=== PATIENT | female | born 1990 | race Caucasian/White ===

== ENCOUNTER 2016-05-22 13:06 | Emergency (ER) | payer OTHER, MEDICAID ==
[2015-03-11 16:19] VITALS: Ht 162.6 cm; Wt 117.5 kg
[~2016-05-22] VITALS: Ht 162.6 cm; Wt 117.5 kg
[~2016-05-22 13:06] MED LIST: ALBU2.5V7 INH; ALPR2TAB7; ASPI-862; ASPI325T2 PO; AZAT50TA18 PO; AZAT50TA24; BISA5TAB10 PO; CIPR750T4 PO; CLON1TAB4 PO; COU5; CYCL-10 PO; CYCL-365; DIAZ-60 PO; DIPH50VI4 IVP; DOC-Q-LACE; FAMO20TA8; FERR-57 PO; FERR236T PO; FERR256T PO; FLUT1DIS3 INH; FURO-149; FURO20TA4; GABA-331; GABA-531 PO; HYDR-3109; HYDR-4100 PO; HYDR200T38; METO25TA6 PO; METO50TA3; NYSCR30; OMEP40CA PO; OMEP40CA33 PO; ONDA2VIA2 IV; PLA200; POTA-88; POTA20TA83 PO; PRED10TA; PRED50TA; SIMV20TA2 PO; SIMV40TA5; TRAM100T13 PO; TRAM50TA2; VITAMIN A; WARF2TAB2 PO; WARF6TAB20 PO; WARF7.5T22; WARF7.5T46 PO; ZOLP10TA6; [UNRECOGNIZED DRUG - CODE]; [UNRECOGNIZED DRUG - OTHER] PO
[2016-05-22 13:12] VITALS: BP 117/72; PULSE 95; RESP 20; TEMP 97.2; O2SAT 100
--- NOTE | 2016-05-22 13:17 | NUR ---
Pt placed to ER bed 02, report given to MIKA Pablo.
--- NOTE | 2016-05-22 13:20 | NUR ---
ER at bedside examining patient.
--- NOTE | 2016-05-22 13:22 | NUR ---
Pt AAOx4 c/o chest painx 3days w/weakness.Pt h/o mechanical valve, htn hyperlipidemia and lupus.
[2016-05-22] MEDS ORDERED: ASPIRIN 81 MG TAB.CHEW PO ONE (13:30)
[2016-05-22 13:44] LABS: BASOPHILS % (AUTO) 0.3 % (0.0-2.0); EOSINOPHILS % (AUTO) 0.1 % (0.0-4.0); HEMATOCRIT 38.2 % (36-48); HEMOGLOBIN 12.5 g/dL (12.0-16.0); LYMPHOCYTES # (AUTO) 0.5 K/uL (1.0-5.5); LYMPHOCYTES % (AUTO) 6.9 % (20.5-51.5); MEAN CORPUSCULAR HEMOGLOBIN 25 pg (27-31); MEAN CORPUSCULAR HGB CONC 33 % (32-36); MEAN CORPUSCULAR VOLUME 77 fL (79.0-98.0); MONOCYTES # (AUTO) 0.5 K/uL (0.0-1.0); MONOCYTES % (AUTO) 7.7 % (1.7-9.3); NEUTROPHILS # (AUTO) 5.8 K/uL (1.8-7.7); PLATELET COUNT (AUTO) 280 K/uL (130-430); RED BLOOD CELL COUNT(AUTO) 4.96 MIL/uL (4.2-6.2); RED CELL DISTRIBUTION WIDTH 17.6 % (9.0-15.0); WHITE BLOOD COUNT (AUTO) 6.8 K/uL (4.8-10.8)
--- NOTE | 2016-05-22 13:48 | NUR ---
Pt tolerated medication well.
[2016-05-22 13:53] LABS: INR 1.9 (0.8-1.2); PROTHROMBIN TIME 21.2 SECS (9.5-12.5)
[2016-05-22 14:12] LABS: CALCIUM 8.8 mg/dL (8.4-11.0); CREATININE 0.84 mg/dL (0.55-1.30); POTASSIUM 3.7 mmol/L (3.5-5.1)
[2016-05-22 14:17] LABS: ALBUMIN 3.9 g/dL (3.4-4.8); TOTAL BILIRUBIN 0.3 mg/dL (0.0-1.0); TOTAL PROTEIN, SERUM 7.8 g/dL (6.4-8.3)
--- NOTE | 2016-05-22 14:20 | NUR ---
Pt returned from rad tolerated well.
[2016-05-22 14:43] LABS: BILIRUBIN,URINE NEGATIVE (NEGATIVE); BLOOD, URINE NEGATIVE (NEGATIVE); COLOR,URINE YELLOW (YELLOW); GLUCOSE,URINE NEGATIVE (NEGATIVE); KETONES,URINE NEGATIVE (NEGATIVE); LEUKOCYTE ESTERASE ,URINE NEGATIVE (NEGATIVE); NITRITE, URINE NEGATIVE (NEGATIVE); PROTEIN URINE NEGATIVE (NEGATIVE); UROBILINOGEN,URINE 0.2 (0.2-1.0)
--- NOTE | 2016-05-22 14:50 | NUR ---
Results negative per MD.pt to be d/c
[2016-05-22 14:54] LABS: CLARITY/URINE SLIGHTLY HAZY (CLEAR)
[2016-05-22 14:57] LABS: BACTERIA,URINE FEW /HPF (None Seen); MUCUS,URINE 1+ /LPF (None Seen); RBC,URINE 0-3 /HPF (0-3); WBC,URINE 0-3 /HPF (0-3)
[2016-05-22] MEDS ORDERED: PROCHLORPERAZINE MALEATE 10 MG TABLET PO ONE (15:00)
[2016-05-22 15:10] VITALS: BP 118/76; PULSE 87; RESP 20; TEMP 97.6; O2SAT 100
--- NOTE | 2016-05-22 15:10 | NUR ---
Patient given written and verbal discharge instructions and verbalizes understanding. ER MD discussed with patient the results and treatment provided. Given copies of tests performed in ER. Patient in stable condition. ID arm band removed. Patient educated on pain management and to follow up with PMD. Pain Scale 2. Opportunity for questions provided and answered.
== END 2016-05-22 15:10 | disposition home or self-care (01) ==
LOC: SED 13:06
DX: R51 Headache (principal); R07.9 Chest pain, unspecified; M32.9 Systemic lupus erythematosus, unspecified; J45.909 Unspecified asthma, uncomplicated; E11.9 Type 2 diabetes mellitus without complications; K21.9 Gastro-esophageal reflux disease without esophagitis; Z88.1 Allergy status to other antibiotic agents; Z88.8 Allergy status to other drugs, medicaments and biological substances
CPT/HCPCS: 36415; 70450; 71010; 80053; 81000; 83880; 84484; 85025; 85610; 85730; 93005; 99285; Q0164

== ENCOUNTER 2017-09-28 19:31 | Emergency (ER) | payer OTHER, MEDICAID ==
[~2017-09-28] VITALS: Ht 162.6 cm; Wt 99.8 kg
[~2017-09-28 19:31] MED LIST changes: -ASPI325T2 PO; -AZAT50TA24; -BISA5TAB10 PO; -CIPR750T4 PO; -CLON1TAB4 PO; -COU5; -CYCL-10 PO; -CYCL-365; -DIAZ-60 PO; -DIPH50VI4 IVP; -FERR-57 PO; -FERR236T PO; -FERR256T PO; -FLUT1DIS3 INH; -FURO-149; -GABA-331; -HYDR-3109; -HYDR-4100 PO; -HYDR200T38; -METO50TA3; -NYSCR30; -OMEP40CA PO; -OMEP40CA33 PO; -ONDA2VIA2 IV; -POTA-88; -POTA20TA83 PO; -PRED10TA; -SIMV20TA2 PO; -TRAM100T13 PO; -TRAM50TA2; -VITAMIN A; -WARF2TAB2 PO; -WARF6TAB20 PO; -WARF7.5T46 PO; -[UNRECOGNIZED DRUG - OTHER] PO
[2017-09-28 19:35] VITALS: BP_SYST 108
--- NOTE | 2017-09-28 19:52 | NUR ---
Placed in room 7. Placed on cardiac cath technologist, blood pressure machine and pulse oximeter. To gown for exam. Side rails up. Report given to Joey BRENNAN.
--- NOTE | 2017-09-28 19:55 | NUR ---
Patient ambulatory to ED a/o x 4 with multiple complaints. Reports stabbing 10/10 pain to chest lower back and flank x 2 days. Reported Hx of aneurysm, lupus, heart failure and PE. Patient states she has had worsening shortness of breath and urinary retention even though she has been drinking water regularly. Patient took [place] for sherley x 3 hours ago with no relief prompting ED visit.
--- NOTE | 2017-09-28 20:01 | NUR ---
ED Kwaw at bedside for medical evaluation.
[2017-09-28] MEDS ORDERED: ASPIRIN 325 MG TABLET PO ONE (21:00)
[2017-09-28] MEDS ORDERED: MORPHINE 4 MG/ML INJ. SYRINGE IVP ONE ×2 (21:00→22:30)
[2017-09-28] MEDS ORDERED: NITROGLYCERIN 1 INCH (GM) OINT. TP ONE (21:00)
--- NOTE | 2017-09-28 21:05 | NUR ---
#22 gauge angiocath placed to RAC. Use of asceptic technique. Opsite placed over site. Blood return noted. Blood for lab drawn from site. Flushed with 10 cc of normal saline. No evidence of infiltration noted. Patient tolerated well.
[2017-09-28 21:21] LABS: BASOPHILS % (AUTO) 0.4 % (0.0-2.0); EOSINOPHILS % (AUTO) 0.4 % (0.0-4.0); HEMATOCRIT 33.1 % (36-48); HEMOGLOBIN 10.6 g/dL (12.0-16.0); LYMPHOCYTES # (AUTO) 1.4 K/uL (1.0-5.5); LYMPHOCYTES % (AUTO) 18.8 % (20.5-51.5); MEAN CORPUSCULAR HEMOGLOBIN 25 pg (27-31); MEAN CORPUSCULAR HGB CONC 32 % (32-36); MEAN CORPUSCULAR VOLUME 78 fL (79.0-98.0); MONOCYTES # (AUTO) 0.9 K/uL (0.0-1.0); MONOCYTES % (AUTO) 12.1 % (1.7-9.3); NEUTROPHILS % (AUTO) 68.3 % (40.0-70.0); PLATELET COUNT (AUTO) 304 K/uL (130-430); RED BLOOD CELL COUNT(AUTO) 4.26 MIL/uL (4.2-6.2); RED CELL DISTRIBUTION WIDTH 18.6 % (9.0-15.0); WHITE BLOOD COUNT (AUTO) 7.3 K/uL (4.8-10.8)
[2017-09-28 21:31] LABS: ANION GAP 5 (5-15); CALCIUM 7.6 mg/dL (8.4-11.0); CHLORIDE 106 mmol/L (98-107); CREATININE 0.85 mg/dL (0.55-1.30); GLUCOSE 81 mg/dL (70-99); POTASSIUM 3.4 mmol/L (3.5-5.1); SODIUM SERUM 141 mmol/L (136-145); UREA NITROGEN, BLOOD 16 mg/dL (8-21)
[2017-09-28 21:32] LABS: GFR AFRICAN AMERICAN 105 mL/min (>90)
[2017-09-28 21:40] LABS: ALANINE AMINOTRANSFERASE 24 U/L (12-78); ALBUMIN 3.1 g/dL (3.4-4.8); ASPARTATE AMINOTRANSFERASE 28 U/L (10-37); TOTAL BILIRUBIN 0.2 mg/dL (0.0-1.0)
[2017-09-28 22:36] LABS: BILIRUBIN,URINE NEGATIVE (NEGATIVE); BLOOD, URINE 3+ (NEGATIVE); CLARITY/URINE SL HAZY (CLEAR); COLOR,URINE YELLOW (YELLOW); GLUCOSE,URINE NEGATIVE (NEGATIVE); KETONES,URINE NEGATIVE (NEGATIVE); LEUKOCYTE ESTERASE ,URINE 2+ (NEGATIVE); NITRITE, URINE NEGATIVE (NEGATIVE); PROTEIN URINE NEGATIVE (NEGATIVE); UROBILINOGEN,URINE 0.2 (0.2-1.0)
[2017-09-28 23:02] LABS: RBC,URINE 20-50 /HPF (0-3); WBC,URINE 20-50 /HPF (0-3)
[2017-09-28 23:03] LABS: BACTERIA,URINE MANY /HPF (None Seen); MUCUS,URINE 1+ /LPF (None Seen)
--- NOTE | 2017-09-28 23:03 | NUR ---
Patient reports pain 3/10 30 minutes after administration of 4mg morphine. No adverse reactions noted. Will continue to monitor.
[2017-09-28] MEDS ORDERED: cefTRIAXone 2 GM VIAL ONE (23:30)
--- NOTE | 2017-09-28 23:31 | NUR ---
Medicated per MD orders. ABX infusing with no s/s of infiltration or adverse effects at this time.
--- NOTE | 2017-09-28 23:49 | NUR ---
ED Kwaw at bedside reassessing patient.
[2017-09-28 23:55] VITALS: BP_SYST 106
--- NOTE | 2017-09-28 23:55 | NUR ---
Patient given written and verbal discharge instructions and verbalizes understanding. ER MD discussed with patient the results and treatment provided. Patient in stable condition. ID arm band removed. IV catheter removed intact and dressing applied, no active bleeding. Rx of Prim and Ciproflaxacin given. Patient educated on pain management and to follow up with PMD. Pain Scale 3/10 tolerable for patient. Opportunity for questions provided and answered. Medication side effect fact sheet provided.
== END 2017-09-28 23:55 | disposition home or self-care (01) ==
LOC: SED 19:31
DX: N12 Tubulo-interstitial nephritis, not specified as acute or chronic (principal); R07.89 Other chest pain; J45.909 Unspecified asthma, uncomplicated; E11.9 Type 2 diabetes mellitus without complications; K21.9 Gastro-esophageal reflux disease without esophagitis; L93.0 Discoid lupus erythematosus; Z95.4 Presence of other heart-valve replacement; Z88.1 Allergy status to other antibiotic agents; Z79.82 Long term (current) use of aspirin; Z79.4 Long term (current) use of insulin
CPT/HCPCS: 36415; 71045; 80053; 81000; 82550; 84484; 85025; 85379; 87086; 93005; 96365; 96375; 96376; 99285; J0696; J2270

== ENCOUNTER 2017-09-30 00:45 | Emergency (ER) | payer OTHER, MEDICAID ==
[~2017-09-30] VITALS: Ht 162.6 cm; Wt 99.8 kg
[2017-09-30 00:59] VITALS: BP_SYST 99
--- NOTE | 2017-09-30 00:59 | NUR ---
Patient to ER bed 3 to gown for evaluation. Side rails up. Report given to MIKA ARGUETA.
--- NOTE | 2017-09-30 01:05 | NUR ---
Patient returns to ER C/O 01/10 bilateral flank pain. Patient was seen in ER 2 days ago and Dx with Pyelonephritis, DC with ABX and pain medication. Patient states "i still do not feel good" Also C/O constipation, denies N/V/D, denies urinary symptoms. AAOx4, unlabored breathing, no signs of acute distress.
--- NOTE | 2017-09-30 01:06 | NUR ---
ER MD White at bedside evaluating the patient
[2017-09-30] MEDS ORDERED: MORPHINE 4 MG/ML INJ. SYRINGE IM ONE (01:15)
--- NOTE | 2017-09-30 01:20 | NUR ---
Patient off the unit for CT via wheelchair
[2017-09-30 01:35] LABS: BILIRUBIN,URINE NEGATIVE (NEGATIVE); BLOOD, URINE NEGATIVE (NEGATIVE); CLARITY/URINE CLEAR (CLEAR); COLOR,URINE YELLOW (YELLOW); GLUCOSE,URINE NEGATIVE (NEGATIVE); KETONES,URINE NEGATIVE (NEGATIVE); LEUKOCYTE ESTERASE ,URINE 1+ (NEGATIVE); NITRITE, URINE NEGATIVE (NEGATIVE); PH,URINE 5.5 (5.0-8.0); PROTEIN URINE NEGATIVE (NEGATIVE); UROBILINOGEN,URINE 0.2 (0.2-1.0)
[2017-09-30 01:56] LABS: BARBITURATE, URINE NEGATIVE (NEG <=200); BENZODIAZEPINE, URINE POSITIVE (NEG <=150); CANNABINOID, URINE NEGATIVE (NEG <=50); COCAINE, URINE NEGATIVE (NEG <=150); METHAMPHETAMINES SCREEN,URINE NEGATIVE (NEG <=500); OPIATE, URINE POSITIVE (NEG <=100); PHENCYCLIDINE SCREEN,URINE NEGATIVE (NEG <=25); UR TRICYCLIC ANTIDEPRESSANTS NEGATIVE (NEG <=300); URINE AMPHETAMINE NEGATIVE (NEG <=500); URINE METHADONE NEGATIVE (NEG <=200); URINE OXYCODONE SCREEN NEGATIVE (NEG <=100); URINE PROPOXYPHENE SCREEN NEGATIVE (NEG <=300)
[2017-09-30] MEDS ORDERED: LACTULOSE 20 GM/30 ML UDC PO ONE (02:00)
--- NOTE | 2017-09-30 02:04 | NUR ---
ER MD White at bedside discussing tests results, plan of care, and discharge with patient.
[2017-09-30 02:06] VITALS: BP_SYST 103
--- NOTE | 2017-09-30 02:06 | NUR ---
Patient given written and verbal discharge instructions and verbalizes understanding. ER MD White discussed with patient the results and treatment provided. Patient in stable condition. ID arm band removed. Rx of lactulose given. Patient educated on pain management and to follow up with PMD. Pain Scale 0/10. Opportunity for questions provided and answered. Medication side effect fact sheet provided.
[2017-09-30 02:11] LABS: BACTERIA,URINE MODERATE /HPF (None Seen); RBC,URINE 0-3 /HPF (0-3)
[2017-09-30 02:13] LABS: HYALINE CASTS, URINE 0-10 /LPF (None Seen)
== END 2017-09-30 02:06 | disposition home or self-care (01) ==
LOC: SED 00:45
DX: K59.00 Constipation, unspecified (principal); N39.0 Urinary tract infection, site not specified; F11.20 Opioid dependence, uncomplicated; J45.909 Unspecified asthma, uncomplicated; K21.9 Gastro-esophageal reflux disease without esophagitis; M79.7 Fibromyalgia; E11.9 Type 2 diabetes mellitus without complications; Z86.79 Personal history of other diseases of the circulatory system; Z79.82 Long term (current) use of aspirin; Z79.899 Other long term (current) drug therapy; Z88.6 Allergy status to analgesic agent; Z88.1 Allergy status to other antibiotic agents
CPT/HCPCS: 80307; 81000-TC; 81025; 87086; 99285

== ENCOUNTER 2017-11-29 17:17 | Emergency (ER) | payer OTHER, MEDICAID ==
[~2017-11-29] VITALS: Ht 162.6 cm; Wt 104.3 kg
[~2017-11-29 17:17] MED LIST changes: +HYDR200T80; -PLA200; -WARF7.5T22; +WARF7.5T49
[2017-11-29 17:30] VITALS: BP_SYST 101
[2017-11-29 18:12] LABS: BILIRUBIN,URINE NEGATIVE (NEGATIVE); CLARITY/URINE SL HAZY (CLEAR); COLOR,URINE YELLOW (YELLOW); GLUCOSE,URINE NEGATIVE (NEGATIVE); KETONES,URINE NEGATIVE (NEGATIVE); LEUKOCYTE ESTERASE ,URINE NEGATIVE (NEGATIVE); NITRITE, URINE NEGATIVE (NEGATIVE); PROTEIN URINE NEGATIVE (NEGATIVE); UROBILINOGEN,URINE 0.2 (0.2-1.0)
[2017-11-29 18:18] LABS: BLOOD, URINE TRACE (NEGATIVE)
[2017-11-29 18:37] LABS: BACTERIA,URINE FEW /HPF (None Seen); MUCUS,URINE None Seen /LPF (None Seen); WBC,URINE 0-3 /HPF (0-3)
[2017-11-29] MEDS ORDERED: MORPHINE 4 MG/ML INJ. SYRINGE IVP ONE (19:00)
[2017-11-29] MEDS ORDERED: NACL 0.9% 1,000 ML IV ONE ×2 (19:00→20:30)
[2017-11-29] MEDS ORDERED: MORPHINE 4 MG/ML INJ. SYRINGE IM ONE (19:15)
[2017-11-29 19:32] LABS: BASOPHILS % (AUTO) 0.4 % (0.0-2.0); EOSINOPHILS % (AUTO) 0.5 % (0.0-4.0); HEMATOCRIT 34.9 % (36-48); HEMOGLOBIN 11.8 g/dL (12.0-16.0); LYMPHOCYTES # (AUTO) 1.5 K/uL (1.0-5.5); LYMPHOCYTES % (AUTO) 20.1 % (20.5-51.5); MEAN CORPUSCULAR HEMOGLOBIN 26 pg (27-31); MEAN CORPUSCULAR HGB CONC 34 % (32-36); MEAN CORPUSCULAR VOLUME 75 fL (79.0-98.0); MONOCYTES # (AUTO) 0.5 K/uL (0.0-1.0); MONOCYTES % (AUTO) 7.3 % (1.7-9.3); NEUTROPHILS # (AUTO) 5.5 K/uL (1.8-7.7); NEUTROPHILS % (AUTO) 71.7 % (40.0-70.0); PLATELET COUNT (AUTO) 364 K/uL (130-430); RED BLOOD CELL COUNT(AUTO) 4.64 MIL/uL (4.2-6.2); RED CELL DISTRIBUTION WIDTH 16.2 % (9.0-15.0); WHITE BLOOD COUNT (AUTO) 7.5 K/uL (4.8-10.8)
[2017-11-29 19:33] LABS: CALCIUM 8.6 mg/dL (8.4-11.0); CREATININE 0.79 mg/dL (0.55-1.30); POTASSIUM 3.6 mmol/L (3.5-5.1)
[2017-11-29 19:37] LABS: ALBUMIN 3.6 g/dL (3.4-4.8); TOTAL BILIRUBIN 0.2 mg/dL (0.0-1.0)
[2017-11-29] MEDS ORDERED: fentaNYL CITRATE/PF 100 MCG/2 ML AMP IVP ONE (20:30)
[2017-11-29] MEDS ORDERED: DIPHENHYDRAMINE INJ 50 MG/ML VIAL IVP ONE (21:00)
[2017-11-29] MEDS ORDERED: DIPHENHYDRAMINE HCL 12.5 MG/5 ML UDC PO ONE (21:30)
[2017-11-29 21:49] VITALS: BP_SYST 113
== END 2017-11-29 21:49 | disposition home or self-care (01) ==
LOC: SED 17:17
DX: S39.011A Strain of muscle, fascia and tendon of abdomen, initial encounter (principal); I71.9 Aortic aneurysm of unspecified site, without rupture; J45.909 Unspecified asthma, uncomplicated; M79.7 Fibromyalgia; E11.9 Type 2 diabetes mellitus without complications; K21.9 Gastro-esophageal reflux disease without esophagitis; E66.01 Morbid (severe) obesity due to excess calories; Z86.711 Personal history of pulmonary embolism; Z86.79 Personal history of other diseases of the circulatory system; Z88.6 Allergy status to analgesic agent; Z88.1 Allergy status to other antibiotic agents; Z88.0 Allergy status to penicillin; Z79.899 Other long term (current) drug therapy; Z68.39 Body mass index [BMI] 39.0-39.9, adult; X58.XXXA Exposure to other specified factors, initial encounter; Y93.89 Activity, other specified; Y92.89 Other specified places as the place of occurrence of the external cause; Y99.8 Other external cause status
CPT/HCPCS: 36415; 74176; 80053; 81000; 81025; 83690; 85025; 96374; 96375; 99285; J2270; J3010; J7030

== ENCOUNTER 2017-12-26 19:22 | Emergency (ER) | payer OTHER, MEDICAID ==
[~2017-12-26] VITALS: Ht 162.6 cm; Wt 108.4 kg
[2017-12-26 19:33] VITALS: BP_SYST 112
[2017-12-26] MEDS ORDERED: LORazepam 2 MG/ML VIAL (FOR ER USE) IVP ONE (21:15)
[2017-12-26] MEDS ORDERED: MORPHINE 2 MG/ML INJ. SYRINGE IVP ONE (21:15)
[2017-12-26] MEDS ORDERED: ONDANSETRON HCL 4 MG/2 ML VIAL IVP ONE (21:15)
[2017-12-26 21:42] LABS: BASOPHILS % (AUTO) 0.2 % (0.0-2.0); EOSINOPHILS % (AUTO) 0.2 % (0.0-4.0); HEMATOCRIT 33.8 % (36-48); HEMOGLOBIN 11.4 g/dL (12.0-16.0); LYMPHOCYTES % (AUTO) 11.2 % (20.5-51.5); MEAN CORPUSCULAR HEMOGLOBIN 26 pg (27-31); MEAN CORPUSCULAR HGB CONC 34 % (32-36); MEAN CORPUSCULAR VOLUME 76 fL (79.0-98.0); MONOCYTES # (AUTO) 0.7 K/uL (0.0-1.0); MONOCYTES % (AUTO) 7.7 % (1.7-9.3); NEUTROPHILS # (AUTO) 6.9 K/uL (1.8-7.7); NEUTROPHILS % (AUTO) 80.7 % (40.0-70.0); PLATELET COUNT (AUTO) 398 K/uL (130-430); RED BLOOD CELL COUNT(AUTO) 4.44 MIL/uL (4.2-6.2); RED CELL DISTRIBUTION WIDTH 17.2 % (9.0-15.0); WHITE BLOOD COUNT (AUTO) 8.6 K/uL (4.8-10.8)
[2017-12-26 21:48] LABS: CALCIUM 8.2 mg/dL (8.4-11.0); CREATININE 0.7 mg/dL (0.55-1.30); POTASSIUM 3.7 mmol/L (3.5-5.1)
[2017-12-26 21:52] LABS: INR 2.8 (0.8-1.2); PROTHROMBIN TIME 28.6 SECS (9.5-12.5)
[2017-12-26 21:53] LABS: TOTAL BILIRUBIN 0.2 mg/dL (0.0-1.0)
[2017-12-26 22:03] LABS: BILIRUBIN,URINE NEGATIVE (NEGATIVE); BLOOD, URINE 3+ (NEGATIVE); COLOR,URINE RED (YELLOW); GLUCOSE,URINE NEGATIVE (NEGATIVE); KETONES,URINE TRACE (NEGATIVE); LEUKOCYTE ESTERASE ,URINE 2+ (NEGATIVE); NITRITE, URINE POSITIVE (NEGATIVE); PROTEIN URINE 3+ (NEGATIVE)
[2017-12-26 22:16] LABS: CLARITY/URINE CLOUDY (CLEAR)
[2017-12-26 22:26] LABS: BARBITURATE, URINE NEGATIVE (NEG <=200); BENZODIAZEPINE, URINE POSITIVE (NEG <=150); CANNABINOID, URINE NEGATIVE (NEG <=50); COCAINE, URINE NEGATIVE (NEG <=150); METHAMPHETAMINES SCREEN,URINE NEGATIVE (NEG <=500); OPIATE, URINE NEGATIVE (NEG <=100); PHENCYCLIDINE SCREEN,URINE NEGATIVE (NEG <=25); UR TRICYCLIC ANTIDEPRESSANTS NEGATIVE (NEG <=300); URINE AMPHETAMINE NEGATIVE (NEG <=500); URINE METHADONE NEGATIVE (NEG <=200); URINE OXYCODONE SCREEN NEGATIVE (NEG <=100); URINE PROPOXYPHENE SCREEN NEGATIVE (NEG <=300)
[2017-12-26 22:30] LABS: BACTERIA,URINE MODERATE /HPF (None Seen); MUCUS,URINE None Seen /LPF (None Seen); RBC,URINE >100 /HPF (0-3); YEAST,URINE None Seen /HPF (None Seen)
[2017-12-26] MEDS ORDERED: HYDROcodone/ACETAMIN 10-325 MG TAB PO ONE (22:45)
[2017-12-26 22:49] LABS: ERYTHROCYTE SEDIMENTATION RATE 7 MM/HR (0-20)
[2017-12-26 23:21] VITALS: BP_SYST 110
== END 2017-12-26 23:21 | disposition home or self-care (01) ==
LOC: SED 19:22
DX: L93.0 Discoid lupus erythematosus (principal); G89.29 Other chronic pain; M79.662 Pain in left lower leg; M79.661 Pain in right lower leg; J45.909 Unspecified asthma, uncomplicated; K21.9 Gastro-esophageal reflux disease without esophagitis; E11.9 Type 2 diabetes mellitus without complications; M79.7 Fibromyalgia; Z79.4 Long term (current) use of insulin; Z79.899 Other long term (current) drug therapy; Z86.711 Personal history of pulmonary embolism; Z88.6 Allergy status to analgesic agent; Z88.1 Allergy status to other antibiotic agents; Z88.0 Allergy status to penicillin
CPT/HCPCS: 36415; 71045; 80053; 80307; 81000; 81025; 82550; 84484; 85025; 85379; 85610; 85651; 85730; 87086; 96374; 96375; 99285; J2060; J2270; J2405

== ENCOUNTER 2018-03-28 13:21 | Inpatient (IN) | payer MEDICAID ==
[~2018-03-28] VITALS: Ht 162.6 cm; Wt 127.0 kg
[~2018-03-28 13:21] MED LIST changes: -ALPR2TAB7; +ALPR2TAB7 PO; -FURO20TA4; +FURO20TA4 PO
[2018-03-28 13:31] VITALS: BP_SYST 118
[2018-03-28 14:19] LABS: BILIRUBIN,URINE NEGATIVE (NEGATIVE); BLOOD, URINE 1+ (NEGATIVE); CLARITY/URINE HAZY (CLEAR); COLOR,URINE YELLOW (YELLOW); GLUCOSE,URINE NEGATIVE (NEGATIVE); KETONES,URINE NEGATIVE (NEGATIVE); LEUKOCYTE ESTERASE ,URINE NEGATIVE (NEGATIVE); NITRITE, URINE NEGATIVE (NEGATIVE); PROTEIN URINE NEGATIVE (NEGATIVE); UROBILINOGEN,URINE 0.2 (0.2-1.0)
[2018-03-28 14:26] LABS: BACTERIA,URINE FEW /HPF (None Seen); MUCUS,URINE 2+ /LPF (None Seen); WBC,URINE 0-3 /HPF (0-3)
--- NOTE | 2018-03-28 14:28 | NUR ---
Patient is in US. [employer] will bring pt to room 5 when US is complete. Endorsed to Ashley BRENNAN.
--- NOTE | 2018-03-28 14:37 | NUR ---
Pt wheeled to bed 5 by US
--- NOTE | 2018-03-28 14:45 | NUR ---
ER at bedside examining patient.
--- NOTE | 2018-03-28 14:55 | NUR ---
patient is AOx4 with c/o vaginal bleeding. patient states she went to [facility] last week and was told she had an incomplete miscarrage. patient is here to get a second opinion and followup on vaginal bleeding. no other complaint or injury at this time.
--- NOTE | 2018-03-28 15:00 | NUR ---
patient resting in bed.
[2018-03-28 15:13] LABS: CALCIUM 8.1 mg/dL (8.4-11.0); CREATININE 1.02 mg/dL (0.55-1.30); POTASSIUM 3.6 mmol/L (3.5-5.1)
[2018-03-28 15:17] LABS: INR 2.3 (0.8-1.2); PROTHROMBIN TIME 22.3 SECS (9.5-12.5)
--- NOTE | 2018-03-28 16:06 | NUR ---
Dr. Dale at bedside for re-evaluation
[2018-03-28 16:08] LABS: BASOPHILS % (AUTO) 0.3 % (0.0-2.0); EOSINOPHILS % (AUTO) 0.4 % (0.0-4.0); HEMATOCRIT 35.5 % (36-48); HEMOGLOBIN 11.8 g/dL (12.0-16.0); LYMPHOCYTES # (AUTO) 1.3 K/uL (1.0-5.5); LYMPHOCYTES % (AUTO) 15.2 % (20.5-51.5); MEAN CORPUSCULAR HEMOGLOBIN 25 pg (27-31); MEAN CORPUSCULAR HGB CONC 33 % (32-36); MEAN CORPUSCULAR VOLUME 76 fL (79.0-98.0); MONOCYTES # (AUTO) 0.7 K/uL (0.0-1.0); NEUTROPHILS # (AUTO) 6.2 K/uL (1.8-7.7); NEUTROPHILS % (AUTO) 76.1 % (40.0-70.0); PLATELET COUNT (AUTO) 308 K/uL (130-430); RED BLOOD CELL COUNT(AUTO) 4.68 MIL/uL (4.2-6.2); WHITE BLOOD COUNT (AUTO) 8.3 K/uL (4.8-10.8)
[2018-03-28 16:18] LABS: INR 2.3 (0.8-1.2); PROTHROMBIN TIME 23.1 SECS (9.5-12.5)
--- NOTE | 2018-03-28 17:02 | NUR ---
Dr. Brady admitted the pt to med/ surg Dr. Livingston notified of consult. Will come to see the patient in the morning.
[2018-03-28] MEDS ORDERED: DIPH50CA38 PO (17:20)
[2018-03-28] MEDS ORDERED: BACL10TA PO (17:20)
[2018-03-28] MEDS ORDERED: HYDR-2489 PO (17:20)
[2018-03-28] MEDS ORDERED: DOCU-144 PO (17:20)
[2018-03-28] MEDS ORDERED: ERGO500020 PO (17:20)
--- NOTE | 2018-03-28 17:20 | NUR ---
Medication reconciliation completed with information provided by patient. Any prior medication reconciliation on file was reviewed and corrected.
[2018-03-28] MEDS ORDERED: ONDANSETRON HCL 4 MG/2 ML VIAL IVP ONE (17:30)
[2018-03-28] MEDS ORDERED: MORPHINE 4 MG/ML INJ. SYRINGE IVP ONE (17:30)
--- NOTE | 2018-03-28 17:46 | NUR ---
Jessy brooks in [facility] - 03/28/18 at 1746 by [email or web address] medication given as ordered ready for transport.
--- NOTE | 2018-03-28 17:47 | NUR ---
medication given as ordered, tolerated well. patient ready for transport.
--- NOTE | 2018-03-28 17:56 | NUR ---
Patient will be admitted to care of MD Brady . Admitted to Med/Surg unit. Will go to room 129. Belongings list completed. Summary report printed. Report will be given at bedside.
--- NOTE | 2018-03-28 18:02 | NUR ---
ADMISSION NOTE Received patient from ER via rica, received report from EPIFANIO BRENNAN. Patient admitted with diagnosis of DEMISE. Patient oriented to hospital routine, call light, toileting and safety-patient verbalized understanding.
[2018-03-28 18:08] VITALS: BP_SYST 117
[2018-03-28] MEDS: D5/0.45 NS 1,000 ML IV SCH (18:27)
--- NOTE | 2018-03-28 18:30 | NUR ---
opening notes, received pt from e.r. pt is aaox4, denies pain this time, no sob, no resp distress. pt has dry cough. iv fluids started. iv in intact on patent. safety precaution on. call light in reach. bed in low positin.
--- NOTE | 2018-03-28 19:30 | NUR ---
closing notes, pt endorsed to night pérez powell. pt stated she is starting to have pain on her back. dr guido was here and seen pt. iv fluids infusing well. calll light in reach.
[2018-03-28 20:00] VITALS: BP_SYST 91
--- NOTE | 2018-03-28 20:00 | NUR ---
Late Entry Due to Patient care: Initial PM Note Pt is fully AAO x4. No c/o pain or discomfort and no acute distress noted. Pt states vaginal bleeding is very minimal and without blood clots. IVF is infusing well in RH without any signs of infiltration. Fall and safety precautions are in place.
[2018-03-28] MEDS: FUROSEMIDE 20 MG TABLET PO SCH (21:00)
[2018-03-28] MEDS: DOCUSATE SODIUM 100 MG CAPSULE PO SCH (21:24)
[2018-03-28] MEDS: DIPHENHYDRAMINE HCL 25 MG CAPSULE PO SCH (21:25)
[2018-03-28] MEDS: LORazepam 1 MG TABLET PO SCH (21:25)
[2018-03-28] MEDS: GABAPENTIN 300 MG CAPSULE PO SCH (21:26)
[2018-03-28] MEDS: BACLOFEN 10 MG TABLET PO SCH (21:26)
[2018-03-28] MEDS: azaTHIOprine 50 MG TABLET PO SCH (21:26)
--- NOTE | 2018-03-28 21:26 | NUR ---
HS Medications and Safety HS medications given as scheduled. Lasix was held due to low BP. Pt was offered bed alarm due to Ativan and Benadryl, but pt declined. Pt stated theses are her home medications and her body is used to them. Pt stated she does not get dizzy from the medications. Pt was instructed to call before getting OOB if she feels dizzy or drowsy and pt verbalized understanding.
[2018-03-28] MEDS: HYDROXYCHLOROQUINE SULFATE 200 MG TABLET PO SCH (21:29)
[2018-03-28 23:40] VITALS: BP_SYST 104
[2018-03-29] MEDS: HYDROcodone/ACETAMIN 10-325 MG TAB PO PRN ×2 (00:57→13:25)
--- NOTE | 2018-03-29 00:57 | NUR ---
Pain Medication [place] 10/325mg 1 tablet was gievn for c/o headache with relief. Pt declined bed alarm. Fall and safety precautions are in place.
--- NOTE | 2018-03-29 01:25 | NUR ---
FRESH FROZEN PLASMA INITIATION: Consent signed per PT agreeing to administration of fresh frozen plasma (FFP). FFP has been type and crossmatched. FFP was sent from blood bank. Information on unit of FFP was checked against patient's wristband at bedside by two nurses. All information matched. Patient was informed of potential complications associated with FFP. Informed of possible transfusion reaction symptoms. Pt is aware of need to notify nurse at once of itching, shortness of breath, flushing, feeling of impending doom, or other symptoms not previously present. Vital signs taken within 5 minutes prior to initiation of transfusion. RN will remain with patient for first 15 minutes of transfusion at which time vital signs will be re-assessed.
--- NOTE | 2018-03-29 01:40 | NUR ---
Reassessment FFP transfusion is in progress and no transfusion reaction noted. VSS. IV site is without any signs of infiltration.
--- NOTE | 2018-03-29 03:00 | NUR ---
First Unit FFP Completion FFP completely transfused and no transfusion reaction noted. IV site is without any signs of infiltration. VSS.
--- NOTE | 2018-03-29 03:15 | NUR ---
Second Unit FFP Initiation Second unit FFP transfusion started. VSS. IV site in Rt hand is without any signs of infiltration. RN will remain with patient for first 15 minutes of transfusion at which time vital signs will be re-assessed.
--- NOTE | 2018-03-29 03:30 | NUR ---
Reassessment 2nd unit FFP transfusion is in progress and no transfusion reaction noted. VSS. IV site is without any signs of infiltration. Fall and safety precautions are in place.
--- NOTE | 2018-03-29 04:15 | NUR ---
Second Unit FFP Completion Second unit of FFP completely transfused and no transfusion reaction noted. IV site is without any signs of infiltration. Fall and safety precautions are in place.
[2018-03-29 05:01] LABS: BASOPHILS % (AUTO) 0.4 % (0.0-2.0); EOSINOPHILS # (AUTO) 0.1 K/uL (0.0-0.4); EOSINOPHILS % (AUTO) 0.9 % (0.0-4.0); HEMATOCRIT 32.5 % (36-48); LYMPHOCYTES # (AUTO) 1.5 K/uL (1.0-5.5); LYMPHOCYTES % (AUTO) 22.5 % (20.5-51.5); MEAN CORPUSCULAR HEMOGLOBIN 24 pg (27-31); MEAN CORPUSCULAR HGB CONC 32 % (32-36); MEAN CORPUSCULAR VOLUME 77 fL (79.0-98.0); MONOCYTES # (AUTO) 0.5 K/uL (0.0-1.0); MONOCYTES % (AUTO) 7.4 % (1.7-9.3); NEUTROPHILS # (AUTO) 4.5 K/uL (1.8-7.7); NEUTROPHILS % (AUTO) 68.8 % (40.0-70.0); PLATELET COUNT (AUTO) 257 K/uL (130-430); RED BLOOD CELL COUNT(AUTO) 4.24 MIL/uL (4.2-6.2); RED CELL DISTRIBUTION WIDTH 19.3 % (9.0-15.0); WHITE BLOOD COUNT (AUTO) 6.6 K/uL (4.8-10.8)
[2018-03-29 05:15] LABS: CALCIUM 7.2 mg/dL (8.4-11.0); CREATININE 0.68 mg/dL (0.55-1.30); POTASSIUM 3.6 mmol/L (3.5-5.1)
[2018-03-29 05:24] LABS: INR 1.8 (0.8-1.2); PROTHROMBIN TIME 18.1 SECS (9.5-12.5)
[2018-03-29 05:53] LABS: HEMOGLOBIN 10.3 g/dL (12.0-16.0)
[2018-03-29] MEDS: D5/0.45 NS 1,000 ML IV SCH (06:18)
--- NOTE | 2018-03-29 06:19 | NUR ---
CONSULTATION PAGED/CALLED Reason for Consultation: demise Person Who was Notified: Jolly Consulting Physician: Dr. Livingston([phone]) Seater Grinder Specialty: obg Ordering Physician: Dr. Brady
--- NOTE | 2018-03-29 06:23 | NUR ---
CONSULTATION PAGED/CALLED Reason for Consultation: Demise Person Who was Notified: Dr. Patel is already aware of consultation (refer to progress notes) Consulting Physician: Dr. Patel Ordering Physician: Dr. Brady
--- NOTE | 2018-03-29 06:30 | NUR ---
Closing Note Pt is awake and not in any distress at this time. IVF is infusing well in RFA. Fall and safety precautions are in place. Will endorse to day shift nurse.
--- NOTE | 2018-03-29 07:55 | NUR ---
Nutrition Update Kian Scale 18 noted. Pt admitted for demise. Diet: clear liquid BMI: 48.1 kg/m2 RD to follow per nutrition care standards.
--- NOTE | 2018-03-29 08:05 | NUR ---
OPENING NOTE PATIENT RECEIVED RESTING IN BED, PATIENT IS AWAKE, ALERT, AND ORIENTED X 4, BREATHING IS EVEN AND UNLABORED, NO PAIN OR ACUTE DISTRESS IS NOTED AT THIS TIME, IVF INFUSING WELL, PATIENT TOLERATING CLEAR LIQUID DIET WELL, EDUCATED PATIENT ON PLAN OF CARE AND CALL LIGHT SYSTEM, WILL CONTINUE TO MONITOR, SAFETY PRECAUTIONS IN PLACE, CALL LIGHT WITHIN REACH.
[2018-03-29 08:11] VITALS: BP_SYST 90
[2018-03-29] MEDS: FUROSEMIDE 20 MG TABLET PO SCH (09:00)
[2018-03-29] MEDS ORDERED: SIMVASTATIN 20 MG TABLET PO SCH (09:00)
[2018-03-29] MEDS ORDERED: PREDNISONE 10 MG TABLET PO SCH (09:00)
[2018-03-29] MEDS ORDERED: ASPIRIN 81 MG TABLET(ECOTRIN) PO SCH (09:00)
[2018-03-29] MEDS: GABAPENTIN 300 MG CAPSULE PO SCH ×2 (09:21→15:03)
[2018-03-29] MEDS: HYDROXYCHLOROQUINE SULFATE 200 MG TABLET PO SCH (09:21)
[2018-03-29] MEDS: LORazepam 1 MG TABLET PO SCH (09:21)
[2018-03-29] MEDS: DIPHENHYDRAMINE HCL 25 MG CAPSULE PO SCH (09:22)
[2018-03-29] MEDS: BACLOFEN 10 MG TABLET PO SCH (09:22)
[2018-03-29] MEDS: azaTHIOprine 50 MG TABLET PO SCH ×2 (09:22→15:03)
[2018-03-29] MEDS: DOCUSATE SODIUM 100 MG CAPSULE PO SCH (09:23)
--- NOTE | 2018-03-29 10:10 | NUR ---
NOTES PATIENT IS RESTING IN BED WITH EYES CLOSED, NO ACUTE DISTRESS OR PAIN IS NOTED AT THIS TIME, BREATHING IS EVEN AND UNLABORED, IVF INFUSING WELL WITH NO SIGNS OF INFILTRATION, WILL CONTINUE TO MONITOR, SAFETY PRECAUTIONS IN PLACE, CALL LIGHT WITHIN REACH.
[2018-03-29 10:51] VITALS: BP_SYST 88
--- NOTE | 2018-03-29 12:15 | NUR ---
NOTES PATIENT IS RESTING IN BED, NO ACUTE DISTRESS IS NOTED, PAIN IS CONTROLLED AT THIS TIME, BREATHING IS EVEN AND UNLABORED, WILL CONTINUE TO MONITOR, FAMILY IS AT BEDSIDE, WILL CONTINUE TO MONITOR, SAFETY PRECAUTIONS IN PLACE, CALL LIGHT WITHIN REACH.
--- NOTE | 2018-03-29 13:30 | NUR ---
NEW IV ON THE LEFT ARM 22G STARTED.
--- NOTE | 2018-03-29 15:16 | NUR ---
NOTES PATIENT IS RESTING IN BED, IVF INFUSING WELL WITH NO SIGNS OF INFILTRATION, PATIENT IS ALERT, AWAKE, AND ORIENTED, BREATHING IS EVEN AND UNLABORED, PATIENT STATING PAIN IS GETTING WORSE, PAGED DR. BACH.
--- NOTE | 2018-03-29 15:35 | NUR ---
SPOKE TO DR. BACH, NEW DIET ORDER RECEIVED, PAGED DR. TAO.
[2018-03-29 16:18] VITALS: BP_SYST 92
--- NOTE | 2018-03-29 17:30 | NUR ---
NOTES PATIENT RESTING IN BED AWAKE, ALERT, AND ORIENTED, BREATHING IS EVEN AND UNLABORED, PATIENT DENIES ANY ACUTE DISTRESS OR PAIN AT THIS TIME, IVF INFUSING WELL WITH NO SIGNS OF INFILTRATION, FAMILY IS AT BEDSIDE, WILL CONTINUE TO MONITOR, SAFETY PRECAUTIONS IN PLACE, CALL LIGHT WITHIN REACH.
[2018-03-29 17:59] VITALS: BP_SYST 92
--- NOTE | 2018-03-29 18:00 | NUR ---
SPOKE TO DR. ISREAL FELIX OKAYED TO DISCHARGE ALTHOUGH X RAY NOT OFFICIALLY READ YET.
--- NOTE | 2018-03-29 18:39 | NUR ---
D/C Patient Patient given medication reconciliation form and D/C instructions. Exit Care provided. Patient verbalized understanding. MD discussed with patient the results and treatment provided. Ambulatory with steady gait for discharge to home. Patient in stable condition, ID band removed. IV catheter removed, intact and dressing applied, no active bleeding. Patient educated to continue home medications. Patient educated on pain management. Patient verbalized an understanding. All belongings sent with patient.
== END 2018-03-29 18:38 | disposition home or self-care (01) | DRG 564 ==
LOC: SED 13:21 → SMU 16:58
PROVIDERS: ADMIT Family Medicine; ATTEND Family Medicine
PROC: 30233L1 Transfusion of Nonautologous Fresh Plasma into Peripheral Vein, Percutaneous Approach (ICD-10-PCS; principal; 2018-03-29)
PROC: 30233K1 Transfusion of Nonautologous Frozen Plasma into Peripheral Vein, Percutaneous Approach (ICD-10-PCS; 2018-03-29)
DX: O02.1 Missed abortion (principal); M32.9 Systemic lupus erythematosus, unspecified; I50.9 Heart failure, unspecified; I11.0 Hypertensive heart disease with heart failure; O10.011 Pre-existing essential hypertension complicating pregnancy, first trimester; O24.911 Unspecified diabetes mellitus in pregnancy, first trimester; O08.1 Delayed or excessive hemorrhage following ectopic and molar pregnancy; E11.9 Type 2 diabetes mellitus without complications; O99.89 Other specified diseases and conditions complicating pregnancy, childbirth and the puerperium; O99.341 Other mental disorders complicating pregnancy, first trimester; K21.9 Gastro-esophageal reflux disease without esophagitis; F41.9 Anxiety disorder, unspecified; O03.9 Complete or unspecified spontaneous abortion without complication; O99.211 Obesity complicating pregnancy, first trimester; E66.9 Obesity, unspecified; O75.89 Other specified complications of labor and delivery; T45.515A Adverse effect of anticoagulants, initial encounter; O99.281 Endocrine, nutritional and metabolic diseases complicating pregnancy, first trimester; E78.5 Hyperlipidemia, unspecified; Z88.2 Allergy status to sulfonamides; Z88.0 Allergy status to penicillin; Z88.8 Allergy status to other drugs, medicaments and biological substances; Z79.899 Other long term (current) drug therapy; Z86.718 Personal history of other venous thrombosis and embolism; Z79.01 Long term (current) use of anticoagulants; Z95.2 Presence of prosthetic heart valve; Y92.89 Other specified places as the place of occurrence of the external cause
CPT/HCPCS: 36415; 74018; 76801; 76817; 80048; 81000-TC; 84702-TC; 85025; 85384-TC; 85610-TC; 85730-TC; 86900; 86901; 96374; 96375; 99285; J2270; J2405; J7040; J7500; J7512; P9059; Q0163

== ENCOUNTER 2018-04-21 21:23 | Emergency (ER) | payer MEDICAID ==
[~2018-04-21] VITALS: Ht 162.6 cm; Wt 129.3 kg
[~2018-04-21 21:23] MED LIST changes: -ALBU2.5V7 INH; +BACL10TA PO; +DIPH50CA38 PO; -DOC-Q-LACE; +DOCU-144 PO; +ERGO500020 PO; -FAMO20TA8; +HYDR-2489 PO; -METO25TA6 PO; -[UNRECOGNIZED DRUG - CODE]
[2018-04-21 21:25] VITALS: BP_SYST 146
[2018-04-21] MEDS ORDERED: NACL 0.9% 1,000 ML IV ONE (22:45)
[2018-04-21 22:56] LABS: BASOPHILS % (AUTO) 0.3 % (0.0-2.0); EOSINOPHILS # (AUTO) 0.1 K/uL (0.0-0.4); EOSINOPHILS % (AUTO) 0.5 % (0.0-4.0); HEMATOCRIT 34.8 % (36-48); HEMOGLOBIN 11.6 g/dL (12.0-16.0); LYMPHOCYTES # (AUTO) 1.5 K/uL (1.0-5.5); LYMPHOCYTES % (AUTO) 15.3 % (20.5-51.5); MEAN CORPUSCULAR HEMOGLOBIN 25 pg (27-31); MEAN CORPUSCULAR HGB CONC 33 % (32-36); MEAN CORPUSCULAR VOLUME 75 fL (79.0-98.0); MONOCYTES # (AUTO) 0.9 K/uL (0.0-1.0); MONOCYTES % (AUTO) 9.1 % (1.7-9.3); NEUTROPHILS # (AUTO) 7.6 K/uL (1.8-7.7); NEUTROPHILS % (AUTO) 74.8 % (40.0-70.0); PLATELET COUNT (AUTO) 377 K/uL (130-430); RED BLOOD CELL COUNT(AUTO) 4.66 MIL/uL (4.2-6.2); RED CELL DISTRIBUTION WIDTH 18.5 % (9.0-15.0); WHITE BLOOD COUNT (AUTO) 10.1 K/uL (4.8-10.8)
[2018-04-21 23:01] LABS: BILIRUBIN,URINE NEGATIVE (NEGATIVE); BLOOD, URINE 1+ (NEGATIVE); CLARITY/URINE CLEAR (CLEAR); COLOR,URINE YELLOW (YELLOW); GLUCOSE,URINE NEGATIVE (NEGATIVE); KETONES,URINE TRACE (NEGATIVE); LEUKOCYTE ESTERASE ,URINE NEGATIVE (NEGATIVE); NITRITE, URINE NEGATIVE (NEGATIVE); PROTEIN URINE NEGATIVE (NEGATIVE); UROBILINOGEN,URINE 0.2 (0.2-1.0)
[2018-04-21 23:05] LABS: ANION GAP 8 (5-15); CALCIUM 8.1 mg/dL (8.4-11.0); CHLORIDE 105 mmol/L (98-107); CREATININE 1.26 mg/dL (0.55-1.30); GLUCOSE 76 mg/dL (70-99); POTASSIUM 3.6 mmol/L (3.5-5.1); SODIUM SERUM 140 mmol/L (136-145); UREA NITROGEN, BLOOD 17 mg/dL (8-21)
[2018-04-21 23:06] LABS: BACTERIA,URINE MODERATE /HPF (None Seen); WBC,URINE 0-3 /HPF (0-3)
[2018-04-21 23:10] LABS: BARBITURATE, URINE NEGATIVE (NEG <=200); BENZODIAZEPINE, URINE POSITIVE (NEG <=150); CANNABINOID, URINE NEGATIVE (NEG <=50); COCAINE, URINE NEGATIVE (NEG <=150); METHAMPHETAMINES SCREEN,URINE NEGATIVE (NEG <=500); OPIATE, URINE NEGATIVE (NEG <=100); PHENCYCLIDINE SCREEN,URINE NEGATIVE (NEG <=25); UR TRICYCLIC ANTIDEPRESSANTS NEGATIVE (NEG <=300); URINE AMPHETAMINE NEGATIVE (NEG <=500); URINE METHADONE NEGATIVE (NEG <=200); URINE OXYCODONE SCREEN NEGATIVE (NEG <=100); URINE PROPOXYPHENE SCREEN NEGATIVE (NEG <=300)
[2018-04-21 23:13] LABS: ALANINE AMINOTRANSFERASE 17 U/L (12-78); ALBUMIN 3.1 g/dL (3.4-4.8); ASPARTATE AMINOTRANSFERASE 26 U/L (10-37); TOTAL BILIRUBIN 0.2 mg/dL (0.0-1.0)
[2018-04-21 23:21] LABS: GFR AFRICAN AMERICAN 66 mL/min (>90)
[2018-04-22 00:30] VITALS: BP_SYST 124
[2018-04-23 19:06] LABS: CHLAMYDIA TRACHOMATIS NAA Negative (Negative); NEISSERIA GONORRHOEAE NAA Negative (Negative)
== END 2018-04-22 00:30 | disposition home or self-care (01) ==
LOC: SED 21:23
DX: N76.0 Acute vaginitis (principal); B96.89 Other specified bacterial agents as the cause of diseases classified elsewhere; F41.9 Anxiety disorder, unspecified; K21.9 Gastro-esophageal reflux disease without esophagitis; E11.9 Type 2 diabetes mellitus without complications; M79.7 Fibromyalgia; Z86.79 Personal history of other diseases of the circulatory system; Z88.0 Allergy status to penicillin; Z88.1 Allergy status to other antibiotic agents; Z88.6 Allergy status to analgesic agent; Z79.82 Long term (current) use of aspirin; Z79.899 Other long term (current) drug therapy
CPT/HCPCS: 36415; 80053; 80307; 81000; 84484; 85025; 87086; 87210; 87491; 87591; 93005; 99284; J7030

== ENCOUNTER 2018-06-21 02:22 | Emergency (ER) | payer MEDICAID ==
[~2018-06-21] VITALS: Ht 162.6 cm; Wt 140.6 kg
[~2018-06-21 02:22] MED LIST changes: -HYDR-2489 PO; +HYDR-4274 PO
[2018-06-21 02:30] VITALS: BP_SYST 116
--- NOTE | 2018-06-21 04:00 | NUR ---
Patient to ER bed 3 to gown for evaluation. Side rails up.
[2018-06-21] MEDS ORDERED: NACL 0.9% 1,000 ML IV ONE (04:12)
--- NOTE | 2018-06-21 04:25 | NUR ---
ER at bedside examining patient.
--- NOTE | 2018-06-21 04:30 | NUR ---
Note undone in EDM - 06/21/18 at 0649 by [email or web address] [facility] for bilateral flank pain for the last 1-3 days. Pt states her pain is 8/10. Reports some nausea but no vomiting. Denies fevers or chills. Denies trauma or accidents. Denies burning, urgency, frequency and denies hematuria. No other complaints/injuries noted. Will cont. to monitor.
--- NOTE | 2018-06-21 04:30 | NUR ---
Pt came to the ED for bilateral flank pain for the last 1-3 days. Pt states her pain is 8/10. Reports some nausea but no vomiting. Denies fevers or chills. Denies trauma or accidents. Denies burning, urgency, frequency and denies hematuria. No other complaints/injuries noted. Will cont. to monitor.
[2018-06-21 04:36] LABS: RED BLOOD CELL COUNT(AUTO) 5.21 MIL/uL (4.2-6.2); WHITE BLOOD COUNT (AUTO) 9.7 K/uL (4.8-10.8)
[2018-06-21 04:37] LABS: BASOPHILS % (AUTO) 0.5 % (0.0-2.0); EOSINOPHILS % (AUTO) 1.1 % (0.0-4.0); HEMOGLOBIN 12.9 g/dL (12.0-16.0); LYMPHOCYTES # (AUTO) 2.1 K/uL (1.0-5.5); LYMPHOCYTES % (AUTO) 21.5 % (20.5-51.5); MEAN CORPUSCULAR HEMOGLOBIN 25 pg (27-31); MEAN CORPUSCULAR HGB CONC 32 % (32-36); MEAN CORPUSCULAR VOLUME 77 fL (79.0-98.0); MONOCYTES % (AUTO) 8.6 % (1.7-9.3); NEUTROPHILS # (AUTO) 6.6 K/uL (1.8-7.7); NEUTROPHILS % (AUTO) 68.3 % (40.0-70.0); PLATELET COUNT (AUTO) 387 K/uL (130-430); RED CELL DISTRIBUTION WIDTH 18.6 % (9.0-15.0)
[2018-06-21 04:38] LABS: BASOPHILS # (AUTO) 0.1 K/uL (0.0-0.2); EOSINOPHILS # (AUTO) 0.1 K/uL (0.0-0.4); MONOCYTES # (AUTO) 0.8 K/uL (0.0-1.0)
[2018-06-21 04:45] LABS: CALCIUM 8.7 mg/dL (8.4-11.0); CREATININE 0.85 mg/dL (0.55-1.30); POTASSIUM 3.9 mmol/L (3.5-5.1)
[2018-06-21 04:50] LABS: PROTHROMBIN TIME 19.9 SECS (9.5-12.5)
[2018-06-21 04:51] LABS: ALBUMIN 3.5 g/dL (3.4-4.8); TOTAL BILIRUBIN 0.2 mg/dL (0.0-1.0)
[2018-06-21 05:28] LABS: BILIRUBIN,URINE NEGATIVE (NEGATIVE); BLOOD, URINE NEGATIVE (NEGATIVE); CLARITY/URINE CLEAR (CLEAR); COLOR,URINE YELLOW (YELLOW); GLUCOSE,URINE NEGATIVE (NEGATIVE); KETONES,URINE NEGATIVE (NEGATIVE); LEUKOCYTE ESTERASE ,URINE NEGATIVE (NEGATIVE); NITRITE, URINE NEGATIVE (NEGATIVE); PROTEIN URINE NEGATIVE (NEGATIVE); UROBILINOGEN,URINE 0.2 (0.2-1.0)
--- NOTE | 2018-06-21 07:32 | NUR ---
REPORT TAKEN FROM SHEAR SETTER NURSE. PATIENT LAYING IN BED RESTING EYES. PATIENT NOT COMPLAINING OF ANY DISTRESS. VITALS WERE TAKEN. PATIENT ON ROOM AIR. PATIENT ALERT AND ORIENTED X4. WILL CONTINUE TO MONITOR.
[2018-06-21] MEDS ORDERED: IOHEXOL 350 mgI/mL, 150 ML INFUS..BTL IV ONE (08:43)
--- NOTE | 2018-06-21 08:43 | NUR ---
SPOKE TO RADIOLOGY AND SAID THEY HAVE TO ORDER DOSE FOR VQ TEST. SAID IT WOULD ARRIVE AROUND 12:30. AWARE.
--- NOTE | 2018-06-21 09:09 | NUR ---
Note cecilia in EDM - 06/21/18 at 0910 by XIOMY PATIENT LAYING IN BED WITH NO COMPLAINTS OF DISTRESS. PATIENT STATES SHE WANTS TO GO HOME. SITTER AT BEDSIDE. WILL CONTINUE TO MONITOR.
[2018-06-21] MEDS ORDERED: MORPHINE 4 MG/ML INJ. SYRINGE IVP ONE (10:15)
[2018-06-21] MEDS ORDERED: ONDANSETRON HCL 4 MG/2 ML VIAL IVP ONE (10:15)
[2018-06-21 11:15] VITALS: BP_SYST 109
--- NOTE | 2018-06-21 11:15 | NUR ---
Patient given written and verbal discharge instructions and verbalizes understanding. ER MD discussed with patient the results and treatment provided. Patient in stable condition. ID arm band removed. IV catheter removed intact and dressing applied, no active bleeding. Rx of flexeril given. Patient educated on pain management and to follow up with PMD. Pain Scale 3/10 tolerable. Opportunity for questions provided and answered. Medication side effect fact sheet provided.
== END 2018-06-21 11:15 | disposition home or self-care (01) ==
LOC: SED 02:22
DX: N20.0 Calculus of kidney (principal); J45.909 Unspecified asthma, uncomplicated; E11.9 Type 2 diabetes mellitus without complications; K21.9 Gastro-esophageal reflux disease without esophagitis; M79.7 Fibromyalgia; Z86.79 Personal history of other diseases of the circulatory system; Z88.1 Allergy status to other antibiotic agents; Z88.0 Allergy status to penicillin; Z88.6 Allergy status to analgesic agent; Z79.82 Long term (current) use of aspirin; Z79.899 Other long term (current) drug therapy
CPT/HCPCS: 36415; 74176; 80053; 81003; 81025; 83690; 85025; 85379; 85610; 96374; 96375; 99284; J2270; J2405; J7030; Q9967

== ENCOUNTER 2018-11-12 09:07 | Emergency (ER) | payer OTHER, MEDICAID ==
[~2018-11-12] VITALS: Ht 162.6 cm; Wt 136.1 kg
[2018-11-12 09:12] VITALS: BP_SYST 146
[2018-11-12 09:38] VITALS: BP_SYST 146
== END 2018-11-12 09:38 | disposition home or self-care (01) ==
LOC: SED 09:07
DX: L03.311 Cellulitis of abdominal wall (principal); Z88.1 Allergy status to other antibiotic agents; Z88.0 Allergy status to penicillin; Z88.8 Allergy status to other drugs, medicaments and biological substances; Z79.82 Long term (current) use of aspirin; Z79.899 Other long term (current) drug therapy
CPT/HCPCS: 99283

== ENCOUNTER 2019-02-09 02:36 | Emergency (ER) | payer OTHER, MEDICAID ==
[~2019-02-09] VITALS: Ht 162.6 cm; Wt 158.3 kg
[2019-02-09 02:36] VITALS: BP_SYST 121
[2019-02-09 03:30] VITALS: BP_SYST 121
[2019-02-09] MEDS ORDERED: MORPHINE 4 MG/ML INJ. SYRINGE IM ONE (04:00)
[2019-02-09 05:26] LABS: HEMATOCRIT 33.8 % (36-48); HEMOGLOBIN 10.9 g/dL (12.0-16.0); MEAN CORPUSCULAR HEMOGLOBIN 24 pg (27-31); MEAN CORPUSCULAR HGB CONC 32 % (32-36); MEAN CORPUSCULAR VOLUME 76 fL (79.0-98.0); PLATELET COUNT (AUTO) 305 K/uL (130-430); RED BLOOD CELL COUNT(AUTO) 4.48 MIL/uL (4.2-6.2); RED CELL DISTRIBUTION WIDTH 20.6 % (9.0-15.0); WHITE BLOOD COUNT (AUTO) 9.5 K/uL (4.8-10.8)
[2019-02-09 05:38] LABS: CALCIUM 9.7 mg/dL (8.4-11.0); CREATININE 1.14 mg/dL (0.55-1.30); POTASSIUM 3.4 mmol/L (3.5-5.1)
[2019-02-09 05:42] LABS: INR 2.8 (0.8-1.2); PROTHROMBIN TIME 27.7 SECS (9.5-12.5)
[2019-02-09 05:49] LABS: ALBUMIN 3.7 g/dL (3.4-4.8); TOTAL BILIRUBIN 0.3 mg/dL (0.0-1.0)
[2019-02-09 06:00] VITALS: BP_SYST 121
[2019-02-09 06:16] LABS: BAND % (MANUAL) 0 % (0-6)
[2019-02-09 06:17] LABS: ATYPICAL LYMPHOCYTES % 0 % (0-0); BASOPHILS % (MANUAL) 0 % (0-2); EOSINOPHILS % (MANUAL) 1 % (0-7); LYMPHOCYTES % (MANUAL) 20 % (20-46); MONOCYTES % (MANUAL) 15 % (0-11)
== END 2019-02-09 06:00 | disposition home or self-care (01) ==
LOC: SED 02:36
DX: N93.9 Abnormal uterine and vaginal bleeding, unspecified (principal); R10.30 Lower abdominal pain, unspecified; J45.909 Unspecified asthma, uncomplicated; E11.9 Type 2 diabetes mellitus without complications; K21.9 Gastro-esophageal reflux disease without esophagitis; Z88.0 Allergy status to penicillin; Z88.1 Allergy status to other antibiotic agents; Z88.8 Allergy status to other drugs, medicaments and biological substances; Z79.82 Long term (current) use of aspirin; Z79.899 Other long term (current) drug therapy
CPT/HCPCS: 36415; 76830; 76857; 80053; 84702; 85007; 85027; 85610; 85730; 86886; 86900; 86901; 96372; 99284; J2270

== ENCOUNTER 2019-02-14 16:22 | Emergency (ER) | payer OTHER, MEDICAID ==
[~2019-02-14] VITALS: Ht 162.6 cm; Wt 158.8 kg
[2019-02-14 16:30] VITALS: BP_SYST 118
--- NOTE | 2019-02-14 16:35 | NUR ---
Patient arrived in the ED c/o vomiting, diarrhea, generalized pain, dizziness, chills x 2 days. Denied any fevers or bloody stools. Patient is alert and oriented x 4, respirations even and unlabored, VS WNL, pain severity 7/10. Denied any respiratory distress at this time. Patient is sitting up in bed, speaking in full sentences. Instructed to notify ED staff if symptoms worsen.
--- NOTE | 2019-02-14 16:41 | NUR ---
ER Dr. Moralez at bedside examining patient.
[2019-02-14] MEDS ORDERED: ONDANSETRON HCL 4 MG/2 ML VIAL IVP ONE (16:45)
--- NOTE | 2019-02-14 16:45 | NUR ---
Orthostatic BP done at bedside as ordered by MD. Lyin/66 - 109 Sittin/74 - 109 Standin/64 - 115
--- NOTE | 2019-02-14 16:50 | NUR ---
# 20 gauge angiocath placed to RAC. Use of asceptic technique. Opsite placed over site. Blood return noted. Blood for lab drawn from site. Flushed with 10 cc of normal saline. No evidence of infiltration noted. Patient tolerated well.
--- NOTE | 2019-02-14 17:23 | NUR ---
Patient taken to Radiology via wheelchair, in stable condition.
[2019-02-14 17:26] LABS: CALCIUM 8.2 mg/dL (8.4-11.0); CREATININE 0.96 mg/dL (0.55-1.30); POTASSIUM 3.6 mmol/L (3.5-5.1)
--- NOTE | 2019-02-14 17:30 | NUR ---
Patient back from Radiology, ambulating with steady gait, in stable condition.
[2019-02-14 17:31] LABS: ALBUMIN 3.4 g/dL (3.4-4.8); TOTAL BILIRUBIN 0.3 mg/dL (0.0-1.0)
[2019-02-14 18:00] LABS: BASOPHILS % (AUTO) 0.3 % (0.0-2.0); EOSINOPHILS % (AUTO) 0.2 % (0.0-4.0); HEMOGLOBIN 10.9 g/dL (12.0-16.0); LYMPHOCYTES # (AUTO) 0.4 K/uL (1.0-5.5); LYMPHOCYTES % (AUTO) 7.9 % (20.5-51.5); MEAN CORPUSCULAR HEMOGLOBIN 25 pg (27-31); MEAN CORPUSCULAR HGB CONC 33 % (32-36); MEAN CORPUSCULAR VOLUME 75 fL (79.0-98.0); MONOCYTES # (AUTO) 0.3 K/uL (0.0-1.0); MONOCYTES % (AUTO) 5.2 % (1.7-9.3); NEUTROPHILS # (AUTO) 4.4 K/uL (1.8-7.7); NEUTROPHILS % (AUTO) 86.4 % (40.0-70.0); PLATELET COUNT (AUTO) 275 K/uL (130-430); RED BLOOD CELL COUNT(AUTO) 4.42 MIL/uL (4.2-6.2); RED CELL DISTRIBUTION WIDTH 20.8 % (9.0-15.0); WHITE BLOOD COUNT (AUTO) 5.1 K/uL (4.8-10.8)
--- NOTE | 2019-02-14 18:14 | NUR ---
ER Dr. Moralez at bedside giving discharge instructions to the patient.
--- NOTE | 2019-02-14 18:20 | NUR ---
Discontinued IV as ordered by Dr. Moralez. Angiocath intact. Put pressure dressing. Patient tolerated the procedure well.
[2019-02-14 18:29] VITALS: BP_SYST 116
--- NOTE | 2019-02-14 18:31 | NUR ---
Patient given written and verbal discharge instructions and verbalizes understanding. ER MD discussed with patient the results and treatment provided. Patient in stable condition. ID arm band removed. Rx of Lomotil and Zofran given. Patient educated on pain management and to follow up with PMD. Pain Scale 0/10. Opportunity for questions provided and answered. Medication side effect fact sheet provided.
== END 2019-02-14 18:31 | disposition home or self-care (01) ==
LOC: SED 16:22
DX: K52.9 Noninfective gastroenteritis and colitis, unspecified (principal); J45.909 Unspecified asthma, uncomplicated; I09.81 Rheumatic heart failure; I26.99 Other pulmonary embolism without acute cor pulmonale; M79.7 Fibromyalgia; Z79.84 Long term (current) use of oral hypoglycemic drugs; Z88.1 Allergy status to other antibiotic agents; Z88.0 Allergy status to penicillin; Z88.8 Allergy status to other drugs, medicaments and biological substances; Z79.82 Long term (current) use of aspirin; Z79.899 Other long term (current) drug therapy
CPT/HCPCS: 36415; 74021; 80053; 81025; 83690; 85025; 96374; 99284; J2405

== ENCOUNTER 2019-03-12 18:11 | Emergency (ER) | payer OTHER, MEDICAID ==
[~2019-03-12] VITALS: Ht 162.6 cm; Wt 156.5 kg
[2019-03-12 18:43] VITALS: BP_SYST 123
--- NOTE | 2019-03-12 19:42 | NUR ---
Called in x 3, no answer
--- NOTE | 2019-03-12 19:42 | NUR ---
Patient left without being seen. No further treatment provided. ER MD aware
== END 2019-03-12 19:42 | disposition left against medical advice (07) ==
LOC: SED 18:11
DX: M54.5 Low back pain (principal); Z53.21 Procedure and treatment not carried out due to patient leaving prior to being seen by health care provider

== ENCOUNTER 2019-03-15 17:23 | Emergency (ER) | payer OTHER, MEDICAID ==
[~2019-03-15] VITALS: Ht 162.6 cm; Wt 156.5 kg
[2019-03-15 17:58] VITALS: BP_SYST 90
--- NOTE | 2019-03-15 18:02 | NUR ---
Patient triaged and placed in waiting room. VSS and patient appears in no acute distress at this time. Accompanied by BOYFRIEND, awaiting available bed, and MD notified of need for MSE.
[2019-03-15 18:10] LABS: BILIRUBIN,URINE NEGATIVE (NEGATIVE); BLOOD, URINE 3+ (NEGATIVE); GLUCOSE,URINE NEGATIVE (NEGATIVE); KETONES,URINE NEGATIVE (NEGATIVE); LEUKOCYTE ESTERASE ,URINE TRACE (NEGATIVE); NITRITE, URINE NEGATIVE (NEGATIVE); PROTEIN URINE 1+ (NEGATIVE); UROBILINOGEN,URINE 0.2 (0.2-1.0)
[2019-03-15 18:17] LABS: CLARITY/URINE SLIGHTLY CLOUDY (CLEAR); COLOR,URINE RED (YELLOW)
[2019-03-15 18:19] LABS: BACTERIA,URINE FEW /HPF (None Seen); MUCUS,URINE None Seen /LPF (None Seen); RBC,URINE >100 /HPF (0-3)
--- NOTE | 2019-03-15 18:25 | NUR ---
Patient to ER bed h2 to gown for evaluation. Side rails up.
--- NOTE | 2019-03-15 18:30 | NUR ---
BECKY White at bedside examining patient.
--- NOTE | 2019-03-15 18:40 | NUR ---
Bolus per MD orders. IVF infusing with no s/s of infiltration at this time. Will cont to monitor
--- NOTE | 2019-03-15 18:40 | NUR ---
#18 gauge angiocath placed to R AC. Use of asceptic technique. Opsite placed over site. Blood return noted. Blood for lab drawn from site. Flushed with 10 cc of normal saline. No evidence of infiltration noted. Patient tolerated well.
[2019-03-15] MEDS ORDERED: LOPERAMIDE HCL 2 MG CAPSULE PO ONE (18:45)
[2019-03-15] MEDS ORDERED: NACL 0.9% 1,000 ML IV ONE (18:45)
[2019-03-15] MEDS ORDERED: ONDANSETRON 4 MG ODT TAB PO ONE (18:45)
[2019-03-15] MEDS ORDERED: NITROFURANTOIN MONOHYD/M-CRYST 100 MG CAPSULE PO ONE (18:45)
[2019-03-15 19:11] LABS: BASOPHILS # (AUTO) 0.1 K/uL (0.0-0.2); BASOPHILS % (AUTO) 0.7 % (0.0-2.0); EOSINOPHILS % (AUTO) 0.3 % (0.0-4.0); HEMATOCRIT 36.2 % (36-48); LYMPHOCYTES # (AUTO) 1.4 K/uL (1.0-5.5); LYMPHOCYTES % (AUTO) 13.3 % (20.5-51.5); MEAN CORPUSCULAR HEMOGLOBIN 25 pg (27-31); MEAN CORPUSCULAR HGB CONC 33 % (32-36); MEAN CORPUSCULAR VOLUME 74 fL (79.0-98.0); MONOCYTES # (AUTO) 0.5 K/uL (0.0-1.0); NEUTROPHILS # (AUTO) 8.6 K/uL (1.8-7.7); NEUTROPHILS % (AUTO) 80.7 % (40.0-70.0); PLATELET COUNT (AUTO) 405 K/uL (130-430); RED BLOOD CELL COUNT(AUTO) 4.87 MIL/uL (4.2-6.2); RED CELL DISTRIBUTION WIDTH 21.8 % (9.0-15.0); WHITE BLOOD COUNT (AUTO) 10.7 K/uL (4.8-10.8)
--- NOTE | 2019-03-15 19:15 | NUR ---
care endorsed to Natty Thomson. pt is in stable condition
[2019-03-15 19:21] LABS: CALCIUM 8.8 mg/dL (8.4-11.0); CREATININE 0.91 mg/dL (0.55-1.30); POTASSIUM 4.1 mmol/L (3.5-5.1)
[2019-03-15 19:27] LABS: ALBUMIN 3.5 g/dL (3.4-4.8); TOTAL BILIRUBIN 0.2 mg/dL (0.0-1.0)
[2019-03-15 19:33] VITALS: BP_SYST 114
--- NOTE | 2019-03-15 19:33 | NUR ---
Patient given written and verbal discharge instructions and verbalizes understanding. ER MD discussed with patient the results and treatment provided. Patient in stable condition. ID arm band removed. IV catheter removed intact and dressing applied, no active bleeding. Rx of imodium, macrobid, zofran and naproxen given. Patient educated on pain management and to follow up with PMD. Pain Scale 0/10 Opportunity for questions provided and answered. Medication side effect fact sheet provided.
== END 2019-03-15 19:33 | disposition home or self-care (01) ==
LOC: SED 17:23
DX: N39.0 Urinary tract infection, site not specified (principal); R11.2 Nausea with vomiting, unspecified; R19.7 Diarrhea, unspecified; J45.909 Unspecified asthma, uncomplicated; E11.9 Type 2 diabetes mellitus without complications; K21.9 Gastro-esophageal reflux disease without esophagitis; Z88.0 Allergy status to penicillin; Z88.1 Allergy status to other antibiotic agents; Z88.8 Allergy status to other drugs, medicaments and biological substances; Z79.899 Other long term (current) drug therapy
CPT/HCPCS: 36415; 80053; 81000; 81025; 85025; 96360; 99284; J7030; Q0162

== ENCOUNTER 2019-06-04 12:18 | Emergency (ER) | payer OTHER, MEDICAID ==
[~2019-06-04] VITALS: Ht 162.6 cm; Wt 159.2 kg
[2019-06-04 12:42] VITALS: BP_SYST 115
--- NOTE | 2019-06-04 12:42 | NUR ---
Patient to ER bed 2 to gown for evaluation. Side rails up.
--- NOTE | 2019-06-04 12:50 | NUR ---
PT CAME TO ER STATING SHE FEELS SHE HAS A YEAST INFECTION. STATES IT FEELS OFF "DOWN THERE".
--- NOTE | 2019-06-04 13:15 | NUR ---
ER at bedside examining patient.
[2019-06-04 14:54] VITALS: BP_SYST 115
--- NOTE | 2019-06-04 14:54 | NUR ---
Patient given written and verbal discharge instructions and verbalizes understanding. ER MD discussed with patient the results and treatment provided. Patient in stable condition. ID arm band removed. Rx FLUCANOZOLE given. Patient educated on pain management and to follow up with PMD. Pain Scale 0. Opportunity for questions provided and answered. Medication side effect fact sheet provided.
== END 2019-06-04 14:54 | disposition home or self-care (01) ==
LOC: SED 12:18
DX: B37.3 Candidiasis of vulva and vagina (principal); J45.909 Unspecified asthma, uncomplicated; I50.9 Heart failure, unspecified; E11.9 Type 2 diabetes mellitus without complications; K21.9 Gastro-esophageal reflux disease without esophagitis; Z86.711 Personal history of pulmonary embolism; Z79.899 Other long term (current) drug therapy; Z79.82 Long term (current) use of aspirin; Z88.1 Allergy status to other antibiotic agents; Z88.0 Allergy status to penicillin
CPT/HCPCS: 81002; 81025; 99283

== ENCOUNTER 2019-09-12 12:14 | Emergency (ER) | payer OTHER, MEDICAID, SELFPAY ==
[~2019-09-12] VITALS: Ht 162.6 cm; Wt 154.2 kg
[2019-09-12 13:35] VITALS: BP_SYST 139
[2019-09-12] MEDS ORDERED: ZOLP-189 PO (13:35)
[2019-09-12] MEDS ORDERED: GABA-776 PO (13:35)
[2019-09-12] MEDS ORDERED: WARF7.5T49 PO (13:35)
[2019-09-12] MEDS ORDERED: LINA145C PO (13:35)
[2019-09-12] MEDS ORDERED: ALPR2TAB2 PO (13:41)
[2019-09-12 13:42] LABS: BILIRUBIN,URINE NEGATIVE (NEGATIVE); COLOR,URINE YELLOW (YELLOW); GLUCOSE,URINE NEGATIVE (NEGATIVE); KETONES,URINE NEGATIVE (NEGATIVE); LEUKOCYTE ESTERASE ,URINE TRACE (NEGATIVE); NITRITE, URINE NEGATIVE (NEGATIVE); PROTEIN URINE NEGATIVE (NEGATIVE); UROBILINOGEN,URINE 0.2 (0.2-1.0)
[2019-09-12 13:49] LABS: BLOOD, URINE TRACE (NEGATIVE); CLARITY/URINE SLIGHTLY HAZY (CLEAR)
[2019-09-12 13:51] LABS: BARBITURATE, URINE NEGATIVE (NEG <=200); BENZODIAZEPINE, URINE NEGATIVE (NEG <=150); CANNABINOID, URINE NEGATIVE (NEG <=50); COCAINE, URINE NEGATIVE (NEG <=150); METHAMPHETAMINES SCREEN,URINE NEGATIVE (NEG <=500); OPIATE, URINE NEGATIVE (NEG <=100); PHENCYCLIDINE SCREEN,URINE NEGATIVE (NEG <=25); UR TRICYCLIC ANTIDEPRESSANTS NEGATIVE (NEG <=300); URINE AMPHETAMINE NEGATIVE (NEG <=500); URINE METHADONE NEGATIVE (NEG <=200); URINE OXYCODONE SCREEN NEGATIVE (NEG <=100); URINE PROPOXYPHENE SCREEN NEGATIVE (NEG <=300)
[2019-09-12 13:58] LABS: BACTERIA,URINE FEW /HPF (None Seen)
[2019-09-12 14:04] LABS: BASOPHILS % (AUTO) 0.5 % (0.0-2.0); EOSINOPHILS % (AUTO) 0.3 % (0.0-4.0); HEMATOCRIT 36.7 % (36-48); HEMOGLOBIN 11.7 g/dL (12.0-16.0); MEAN CORPUSCULAR HEMOGLOBIN 26 pg (27-31); MEAN CORPUSCULAR HGB CONC 32 % (32-36); MEAN CORPUSCULAR VOLUME 81 fL (79.0-98.0); MONOCYTES # (AUTO) 0.4 K/uL (0.0-1.0); MONOCYTES % (AUTO) 6.2 % (1.7-9.3); NEUTROPHILS # (AUTO) 4.7 K/uL (1.8-7.7); PLATELET COUNT (AUTO) 297 K/uL (130-430); RED BLOOD CELL COUNT(AUTO) 4.52 MIL/uL (4.2-6.2); RED CELL DISTRIBUTION WIDTH 20.2 % (9.0-15.0); WHITE BLOOD COUNT (AUTO) 6.1 K/uL (4.8-10.8)
[2019-09-12 14:09] LABS: ANION GAP 7 (5-15); CHLORIDE 104 mmol/L (98-107); GLUCOSE 94 mg/dL (70-99); POTASSIUM 3.9 mmol/L (3.5-5.1); SODIUM SERUM 142 mmol/L (136-145); UREA NITROGEN, BLOOD 17 mg/dL (8-21)
[2019-09-12 14:10] LABS: GFR AFRICAN AMERICAN 97 mL/min (>90)
[2019-09-12 14:19] LABS: ALANINE AMINOTRANSFERASE 27 U/L (12-78); ALBUMIN 3.1 g/dL (3.4-4.8); ASPARTATE AMINOTRANSFERASE 30 U/L (10-37); TOTAL BILIRUBIN 0.2 mg/dL (0.0-1.0)
[2019-09-12] MEDS: MORPHINE 4 MG/ML INJ. SYRINGE IVP ONE (14:42)
[2019-09-12] MEDS: NACL 0.9% 1,000 ML IV ONE (15:06)
[2019-09-12 17:30] VITALS: BP_SYST 95
== END 2019-09-12 17:30 | disposition home or self-care (01) ==
LOC: SED 12:14
DX: U07.1 COVID-19 (principal); R51 Headache; R06.02 Shortness of breath; J45.909 Unspecified asthma, uncomplicated; K21.9 Gastro-esophageal reflux disease without esophagitis; E11.9 Type 2 diabetes mellitus without complications; I50.9 Heart failure, unspecified; Z79.899 Other long term (current) drug therapy; Z79.82 Long term (current) use of aspirin; Z88.0 Allergy status to penicillin; Z88.1 Allergy status to other antibiotic agents; Z88.6 Allergy status to analgesic agent
CPT/HCPCS: 36415; 71045; 80053; 80307; 81000; 83880; 84484; 85025; 86710; 87086; 93005; 96374; 99285; C9803; J2270; J7030; U0003

== ENCOUNTER 2019-11-25 18:55 | Emergency (ER) | payer OTHER, MEDICAID, SELFPAY ==
[~2019-11-25] VITALS: Ht 157.5 cm; Wt 117.9 kg
[~2019-11-25 18:55] MED LIST changes: +ALPR2TAB2 PO; -DIPH50CA38 PO; -ERGO500020 PO; +GABA-776 PO; +LINA145C PO; +WARF7.5T49 PO; +ZOLP-189 PO
--- NOTE | 2019-11-25 19:00 | NUR ---
Placed in room 06 . Placed on potline monitor, blood pressure machine and pulse oximeter. To gown for exam. Side rails up.
[2019-11-25 19:01] VITALS: BP_SYST 103
--- NOTE | 2019-11-25 19:05 | NUR ---
ER at bedside examining patient.
--- NOTE | 2019-11-25 19:08 | NUR ---
Pt presents to the hospital for blood to be drawn. As per pt station inspector sent her to the hospital to obtain blood lab, specfically PT and INR due surgery for gastric sleeve scheduled on Monday. Last blood drawn as per pt was 11/05/19. Pt takes lovenox and warfarin and has had abnormal labs in the past. Hx of PE and DVT's. Pt has also experienced intermittent CP for the last week. Denies current CP or SOB. Denies fever, chills, cough.
--- NOTE | 2019-11-25 19:40 | NUR ---
# 20 gauge angiocath placed to RAC. Use of asceptic technique. Opsite placed over site. Blood return noted. Flushed with 10 cc of normal saline. No evidence of infiltration noted. Patient tolerated well.
[2019-11-25 20:03] LABS: BILIRUBIN,URINE NEGATIVE (NEGATIVE); BLOOD, URINE 1+ (NEGATIVE); COLOR,URINE YELLOW (YELLOW); GLUCOSE,URINE NEGATIVE (NEGATIVE); KETONES,URINE NEGATIVE (NEGATIVE); LEUKOCYTE ESTERASE ,URINE TRACE (NEGATIVE); NITRITE, URINE NEGATIVE (NEGATIVE); PH,URINE 8.5 (5.0-8.0); PROTEIN URINE NEGATIVE (NEGATIVE); UROBILINOGEN,URINE 0.2 (0.2-1.0)
[2019-11-25 20:06] LABS: BASOPHILS % (AUTO) 0.4 % (0.0-2.0); EOSINOPHILS % (AUTO) 0.2 % (0.0-4.0); HEMATOCRIT 33.8 % (36-48); HEMOGLOBIN 10.7 g/dL (12.0-16.0); LYMPHOCYTES # (AUTO) 0.9 K/uL (1.0-5.5); LYMPHOCYTES % (AUTO) 14.6 % (20.5-51.5); MEAN CORPUSCULAR HEMOGLOBIN 25 pg (27-31); MEAN CORPUSCULAR HGB CONC 32 % (32-36); MEAN CORPUSCULAR VOLUME 78 fL (79.0-98.0); MONOCYTES # (AUTO) 0.4 K/uL (0.0-1.0); MONOCYTES % (AUTO) 5.7 % (1.7-9.3); NEUTROPHILS # (AUTO) 5.1 K/uL (1.8-7.7); NEUTROPHILS % (AUTO) 79.1 % (40.0-70.0); PLATELET COUNT (AUTO) 348 K/uL (130-430); RED BLOOD CELL COUNT(AUTO) 4.36 MIL/uL (4.2-6.2); RED CELL DISTRIBUTION WIDTH 19.8 % (9.0-15.0); WHITE BLOOD COUNT (AUTO) 6.4 K/uL (4.8-10.8)
[2019-11-25 20:12] LABS: CLARITY/URINE SLIGHTLY HAZY (CLEAR)
[2019-11-25 20:14] LABS: CALCIUM 8.8 mg/dL (8.4-11.0); CREATININE 1.17 mg/dL (0.55-1.30)
[2019-11-25 20:16] LABS: PROTHROMBIN TIME 10.3 SECS (9.5-12.5)
[2019-11-25 20:19] LABS: ALBUMIN 3.3 g/dL (3.4-4.8); TOTAL BILIRUBIN 0.2 mg/dL (0.0-1.0)
[2019-11-25 20:39] LABS: BACTERIA,URINE FEW /HPF (None Seen); MUCUS,URINE 1+ /LPF (None Seen)
[2019-11-25 21:01] VITALS: BP_SYST 132
--- NOTE | 2019-11-25 21:01 | NUR ---
Patient given written and verbal discharge instructions and verbalizes understanding. ER MD discussed with patient the results and treatment provided. Patient in stable condition. ID arm band removed. IV catheter removed intact and dressing applied, no active bleeding. Rx of Macrobid given. Patient educated on pain management and to follow up with PMD. Opportunity for questions provided and answered. Medication side effect fact sheet provided.
== END 2019-11-25 21:01 | disposition home or self-care (01) ==
LOC: SED 18:55
DX: N39.0 Urinary tract infection, site not specified (principal); R07.9 Chest pain, unspecified; J45.909 Unspecified asthma, uncomplicated; E11.9 Type 2 diabetes mellitus without complications; Z88.1 Allergy status to other antibiotic agents; Z88.0 Allergy status to penicillin; Z79.899 Other long term (current) drug therapy; Z79.82 Long term (current) use of aspirin
CPT/HCPCS: 36415; 80053; 81000-TC; 82550-TC; 84484; 85025; 85379; 85610-TC; 85730-TC; 87086; 93005; 99284

== ENCOUNTER 2020-10-21 11:28 | Emergency (ER) | payer OTHER, MEDICAID ==
[~2020-10-21] VITALS: Ht 162.6 cm; Wt 145.1 kg
[~2020-10-21 11:28] MED LIST changes: +SIMV-46; -SIMV40TA5
[2020-10-21 11:35] VITALS: BP_SYST 127
--- NOTE | 2020-10-21 11:45 | NUR ---
Pt to bed 5 for evaluation. Report given to MIKA Duque who will assume care.
--- NOTE | 2020-10-21 11:57 | NUR ---
ER at bedside examining patient.
--- NOTE | 2020-10-21 11:58 | NUR ---
ER at bedside examining patient.
--- NOTE | 2020-10-21 12:00 | NUR ---
PT AAO AND AMBULATORY REPORTING WORSENING ABDOMINAL PAIN X 2 WEEKS. PT REPORTS THAT HER PAIN RADIATES TO HER FLANK AREA AND SHE HAS HAD DIFFICULTY URINATING. PT REPORTS PAIN 10/10 CURRENTLY.
[2020-10-21] MEDS ORDERED: MORPHINE 4 MG INJ. 4 MG/ML VIAL IVP ONE ×2 (12:15→14:15)
[2020-10-21] MEDS ORDERED: PANTOPRAZOLE SODIUM 40 MG/VIAL (PROTONIX) IVP ONE (12:15)
[2020-10-21] MEDS ORDERED: NACL 0.9% 1,000 ML IV ONE (12:15)
[2020-10-21] MEDS ORDERED: DIPHENHYDRAMINE INJ 50 MG/ML VIAL IVP ONE (12:15)
--- NOTE | 2020-10-21 12:22 | NUR ---
LAB AT BEDSIDE FOR BLOOD DRAW
[2020-10-21 12:29] LABS: BASOPHILS % (AUTO) 0.3 % (0.0-2.0); EOSINOPHILS % (AUTO) 0.1 % (0.0-4.0); HEMATOCRIT 28.8 % (36-48); HEMOGLOBIN 9.4 g/dL (12.0-16.0); LYMPHOCYTES # (AUTO) 0.7 K/uL (1.0-5.5); LYMPHOCYTES % (AUTO) 8.4 % (20.5-51.5); MEAN CORPUSCULAR HEMOGLOBIN 23 pg (27-31); MEAN CORPUSCULAR HGB CONC 33 % (32-36); MEAN CORPUSCULAR VOLUME 71 fL (79.0-98.0); MONOCYTES # (AUTO) 0.4 K/uL (0.0-1.0); MONOCYTES % (AUTO) 4.1 % (1.7-9.3); NEUTROPHILS # (AUTO) 7.4 K/uL (1.8-7.7); NEUTROPHILS % (AUTO) 87.1 % (40.0-70.0); PLATELET COUNT (AUTO) 344 K/uL (130-430); RED BLOOD CELL COUNT(AUTO) 4.07 MIL/uL (4.2-6.2); RED CELL DISTRIBUTION WIDTH 20.1 % (9.0-15.0); WHITE BLOOD COUNT (AUTO) 8.5 K/uL (4.8-10.8)
[2020-10-21 12:30] LABS: BILIRUBIN,URINE NEGATIVE (NEGATIVE); BLOOD, URINE 2+ (NEGATIVE); COLOR,URINE YELLOW (YELLOW); GLUCOSE,URINE NEGATIVE (NEGATIVE); KETONES,URINE NEGATIVE (NEGATIVE); LEUKOCYTE ESTERASE ,URINE 1+ (NEGATIVE); NITRITE, URINE NEGATIVE (NEGATIVE); PH,URINE 7.5 (5.0-8.0); PROTEIN URINE NEGATIVE (NEGATIVE); UROBILINOGEN,URINE 0.2 (0.2-1.0)
[2020-10-21 12:33] LABS: CLARITY/URINE SLIGHTLY HAZY (CLEAR)
[2020-10-21 12:40] LABS: BACTERIA,URINE FEW /HPF (None Seen)
[2020-10-21 12:49] LABS: CREATININE 0.97 mg/dL (0.55-1.30); POTASSIUM 3.6 mmol/L (3.5-5.1)
[2020-10-21 12:54] LABS: INR 1.8 (0.8-1.2); PROTHROMBIN TIME 19.1 SECS (9.5-12.5); TOTAL BILIRUBIN 0.2 mg/dL (0.0-1.0)
[2020-10-21] MEDS ORDERED: PROCHLORPERAZINE EDISYLATE 10 MG/2 ML VIAL IVP ONE (14:15)
--- NOTE | 2020-10-21 14:20 | NUR ---
medicated for pain 10/10 per pt., pt. appears comfortable
[2020-10-21] MEDS ORDERED: IOHEXOL 350 mgI/mL, 150 ML INFUS..BTL IV ONE (14:38)
--- NOTE | 2020-10-21 15:09 | NUR ---
Pt. returned from CT
--- NOTE | 2020-10-21 15:54 | NUR ---
radiology at bedside for U/S
[2020-10-21] MEDS ORDERED: OMEP20CA15 PO (16:13)
[2020-10-21] MEDS ORDERED: HYDR-3917 PO (16:13)
[2020-10-21 16:43] VITALS: BP_SYST 107
--- NOTE | 2020-10-21 16:43 | NUR ---
Patient given written and verbal discharge instructions and verbalizes understanding. ER MD discussed with patient the results and treatment provided. Patient in stable condition. ID arm band removed. IV catheter removed intact and dressing applied, no active bleeding. Rx of [place] and Omeprazole given. Patient educated on pain management and to follow up with PMD. Pain Scale 3.Opportunity for questions provided and answered. Medication side effect fact sheet provided.
== END 2020-10-21 16:43 | disposition home or self-care (01) ==
LOC: SED 11:28
DX: R10.13 Epigastric pain (principal); R06.02 Shortness of breath; J45.909 Unspecified asthma, uncomplicated; E11.9 Type 2 diabetes mellitus without complications; K21.9 Gastro-esophageal reflux disease without esophagitis; Z88.0 Allergy status to penicillin; Z88.1 Allergy status to other antibiotic agents; Z88.8 Allergy status to other drugs, medicaments and biological substances; Z79.899 Other long term (current) drug therapy
CPT/HCPCS: 36415; 71275; 74177; 76376; 76700; 80053; 81000; 83690; 85025; 85610; 85730; 87086; 96361; 96374; 96375; 96376; 99285; C9113; J0780; J1200; J2270; J7030; Q9967

== ENCOUNTER 2021-01-04 23:05 | Emergency (ER) | payer OTHER, MEDICAID ==
[~2021-01-04] VITALS: Ht 162.6 cm; Wt 140.6 kg
[~2021-01-04 23:05] MED LIST changes: +HYDR-3917 PO; +OMEP20CA15 PO
[2021-01-04 23:40] VITALS: BP_SYST 110
[2021-01-05] MEDS ORDERED: MORPHINE 4 MG INJ. 4 MG/ML VIAL IM ONE (01:15)
[2021-01-05 01:45] LABS: HCG,QUAL RESULT NEGATIVE (NEGATIVE)
[2021-01-05 03:21] LABS: HEMATOCRIT 29.5 % (36-48); HEMOGLOBIN 9.3 g/dL (12.0-16.0); MEAN CORPUSCULAR HEMOGLOBIN 22 pg (27-31); MEAN CORPUSCULAR HGB CONC 31 % (32-36); MEAN CORPUSCULAR VOLUME 70 fL (79.0-98.0); PLATELET COUNT (AUTO) 352 K/uL (130-430); WHITE BLOOD COUNT (AUTO) 9.8 K/uL (4.8-10.8)
[2021-01-05 03:26] LABS: CREATININE 1.14 mg/dL (0.55-1.30); POTASSIUM 3.5 mmol/L (3.5-5.1)
[2021-01-05 03:31] LABS: ALBUMIN 3.1 g/dL (3.4-4.8); TOTAL BILIRUBIN 0.2 mg/dL (0.0-1.0)
[2021-01-05 03:58] LABS: INR 6.9 (0.8-1.2); PROTHROMBIN TIME 65.9 SECS (9.5-12.5)
[2021-01-05 05:18] VITALS: BP_SYST 112
[2021-01-24] MEDS ORDERED: CEPH500C2 PO (01:56)
== END 2021-01-05 05:18 | disposition home or self-care (01) ==
LOC: SED 23:05
DX: S39.012A Strain of muscle, fascia and tendon of lower back, initial encounter (principal); S20.222A Contusion of left back wall of thorax, initial encounter; S10.93XA Contusion of unspecified part of neck, initial encounter; D53.9 Nutritional anemia, unspecified; E66.01 Morbid (severe) obesity due to excess calories; E11.9 Type 2 diabetes mellitus without complications; K21.9 Gastro-esophageal reflux disease without esophagitis; J45.909 Unspecified asthma, uncomplicated; Z68.43 Body mass index [BMI] 50.0-59.9, adult; Z79.01 Long term (current) use of anticoagulants; Z88.1 Allergy status to other antibiotic agents; Z88.0 Allergy status to penicillin; Z79.899 Other long term (current) drug therapy; W01.198A Fall on same level from slipping, tripping and stumbling with subsequent striking against other object, initial encounter; Y93.89 Activity, other specified; Y92.89 Other specified places as the place of occurrence of the external cause; Y99.8 Other external cause status
CPT/HCPCS: 36415; 70450; 71045; 72125; 72128; 72131; 76376; 80053; 83051; 84703; 85014; 85048; 85049; 85610; 86870; 86886; 86900; 86901; 96372; 99285; J2270

== ENCOUNTER 2021-01-23 23:19 | Emergency (ER) | payer OTHER, MEDICAID ==
[~2021-01-23] VITALS: Ht 162.6 cm; Wt 140.6 kg
[2021-01-23 23:24] VITALS: BP_SYST 123
[2021-01-23] MEDS ORDERED: ALBUTEROL SULFATE 0.083% 2.5 MG/3 ML VIAL.NEB INH ONE ×2 (23:45→23:49)
[2021-01-23] MEDS ORDERED: IPRATROPIUM BROM 0.5 MG/2.5 ML VIAL.NEB (ATROVENT) INH ONE ×2 (23:45→23:50)
[2021-01-23 23:57] LABS: BILIRUBIN,URINE NEGATIVE (NEGATIVE); BLOOD, URINE 2+ (NEGATIVE); COLOR,URINE YELLOW (YELLOW); GLUCOSE,URINE NEGATIVE (NEGATIVE); KETONES,URINE NEGATIVE (NEGATIVE); LEUKOCYTE ESTERASE ,URINE 1+ (NEGATIVE); NITRITE, URINE NEGATIVE (NEGATIVE); PROTEIN URINE NEGATIVE (NEGATIVE); UROBILINOGEN,URINE 0.2 (0.2-1.0)
[2021-01-24 00:05] LABS: BASOPHILS # (AUTO) 0.1 K/uL (0.0-0.2); BASOPHILS % (AUTO) 0.8 % (0.0-2.0); EOSINOPHILS # (AUTO) 0.1 K/uL (0.0-0.4); HEMATOCRIT 29.4 % (36-48); HEMOGLOBIN 9.1 g/dL (12.0-16.0); LYMPHOCYTES # (AUTO) 1.5 K/uL (1.0-5.5); MEAN CORPUSCULAR HEMOGLOBIN 22 pg (27-31); MEAN CORPUSCULAR HGB CONC 31 % (32-36); MEAN CORPUSCULAR VOLUME 69 fL (79.0-98.0); MONOCYTES # (AUTO) 0.5 K/uL (0.0-1.0); NEUTROPHILS # (AUTO) 5.9 K/uL (1.8-7.7); NEUTROPHILS % (AUTO) 73.2 % (40.0-70.0); PLATELET COUNT (AUTO) 419 K/uL (130-430); RED BLOOD CELL COUNT(AUTO) 4.24 MIL/uL (4.2-6.2); RED CELL DISTRIBUTION WIDTH 20.5 % (9.0-15.0); WHITE BLOOD COUNT (AUTO) 8.1 K/uL (4.8-10.8)
[2021-01-24 00:08] LABS: CLARITY/URINE SLIGHTLY HAZY (CLEAR)
[2021-01-24 00:30] LABS: CALCIUM 8.1 mg/dL (8.4-11.0); CREATININE 1.1 mg/dL (0.55-1.30); POTASSIUM 3.3 mmol/L (3.5-5.1)
[2021-01-24 00:33] LABS: RBC,URINE 20-50 /HPF (0-3)
[2021-01-24 00:34] LABS: BACTERIA,URINE FEW /HPF (None Seen); MUCUS,URINE 1+ /LPF (None Seen)
[2021-01-24 00:41] LABS: ALBUMIN 3.6 g/dL (3.4-4.8); TOTAL BILIRUBIN 0.3 mg/dL (0.0-1.0)
[2021-01-24] MEDS ORDERED: cefTRIAXone 1 GM IVPB PREMIX 50 ML IV ONE (00:45)
[2021-01-24] MEDS ORDERED: VANCOMYCIN HCL 1,000 MG in NS 250 ML IV ONE (00:45)
[2021-01-24] MEDS ORDERED: MEROPENEM 1 GM in NS 100 ML IV ONE (00:45)
[2021-01-24] MEDS ORDERED: VANCOMYCIN HCL 1000 MG/VIAL IV ONE (01:01)
[2021-01-24] MEDS ORDERED: MORPHINE 4 MG INJ. 4 MG/ML VIAL IVP ONE (01:15)
[2021-01-24] MEDS ORDERED: NAPR-1172 PO (01:56)
[2021-01-24] MEDS ORDERED: CEPH-548 PO (01:56)
[2021-01-24 02:45] VITALS: BP_SYST 136
== END 2021-01-24 02:43 | disposition home or self-care (01) ==
LOC: SED 23:19
DX: J18.9 Pneumonia, unspecified organism (principal); N39.0 Urinary tract infection, site not specified; E11.9 Type 2 diabetes mellitus without complications; J45.909 Unspecified asthma, uncomplicated; K21.9 Gastro-esophageal reflux disease without esophagitis; Z88.1 Allergy status to other antibiotic agents; Z88.0 Allergy status to penicillin; Z88.6 Allergy status to analgesic agent; Z79.899 Other long term (current) drug therapy
CPT/HCPCS: 36415; 71045; 80053; 81000; 81025; 83880; 85025; 87040; 87086; 94640 ×2; 96365; 96367; 96375; 99284; J0696; J2270; J3370; J7613

== ENCOUNTER 2021-05-13 23:21 | Emergency (ER) | payer OTHER, MEDICAID ==
[~2021-05-13] VITALS: Ht 162.6 cm; Wt 145.1 kg
[2021-05-13 23:21] VITALS: BP_SYST 107
[~2021-05-13 23:21] MED LIST changes: +CEPH-548 PO; +NAPR-1172 PO
--- NOTE | 2021-05-13 23:45 | NUR ---
Placed in room 06 . Placed on quality assurance monitor, blood pressure machine and pulse oximeter. To gown for exam. Side rails up.
--- NOTE | 2021-05-14 00:35 | NUR ---
PT C/O SOB X 2 WEEKS. PT HAS BEEN COVID TESTED X3, ALL NEGATIVE RESULTS. PT HAS EXTENSIVE MEDICAL HX, INCLUDING HF 2 YEARS AGO. EKG DONE BY MIKA.
--- NOTE | 2021-05-14 00:40 | NUR ---
Dr. Wheeler at bedside to assess pt.
[2021-05-14 02:34] LABS: EOSINOPHILS # (AUTO) 0.1 K/uL (0.0-0.4); HEMATOCRIT 26.3 % (36-48); HEMOGLOBIN 8.2 g/dL (12.0-16.0); LYMPHOCYTES # (AUTO) 1.1 K/uL (1.0-5.5); LYMPHOCYTES % (AUTO) 27.8 % (20.5-51.5); MEAN CORPUSCULAR HEMOGLOBIN 20 pg (27-31); MEAN CORPUSCULAR HGB CONC 31 % (32-36); MEAN CORPUSCULAR VOLUME 63 fL (79.0-98.0); MONOCYTES # (AUTO) 0.4 K/uL (0.0-1.0); MONOCYTES % (AUTO) 10.8 % (1.7-9.3); NEUTROPHILS # (AUTO) 2.3 K/uL (1.8-7.7); NEUTROPHILS % (AUTO) 58.4 % (40.0-70.0); PLATELET COUNT (AUTO) 277 K/uL (130-430); RED BLOOD CELL COUNT(AUTO) 4.15 MIL/uL (4.2-6.2); RED CELL DISTRIBUTION WIDTH 19.8 % (9.0-15.0); WHITE BLOOD COUNT (AUTO) 3.9 K/uL (4.8-10.8)
[2021-05-14 02:45] LABS: CALCIUM 8.5 mg/dL (8.4-11.0); CREATININE 0.84 mg/dL (0.55-1.30); POTASSIUM 3.4 mmol/L (3.5-5.1)
[2021-05-14 02:54] LABS: ALBUMIN 3.3 g/dL (3.4-4.8); TOTAL BILIRUBIN 0.2 mg/dL (0.0-1.0)
[2021-05-14 03:05] LABS: INR 3.1 (0.8-1.2); PROTHROMBIN TIME 29.8 SECS (9.5-12.5)
[2021-05-14 03:25] VITALS: BP_SYST 98
--- NOTE | 2021-05-14 03:46 | NUR ---
PT PROVIDED WITH EDUCATION AND DISCHARGE INSTRUCTIONS. ALL QUESTIONS ANSWERED. PT VERBALIZED UNDERSTANDING. PT DISCHARGED AMUBLATORY AND IN STABLE CONDITION
== END 2021-05-14 04:28 | disposition home or self-care (01) ==
LOC: SED 23:21
DX: R06.02 Shortness of breath (principal); D64.9 Anemia, unspecified; U09.9 Post COVID-19 condition, unspecified; M79.605 Pain in left leg; L93.0 Discoid lupus erythematosus; I50.9 Heart failure, unspecified; Z95.2 Presence of prosthetic heart valve; Z79.899 Other long term (current) drug therapy; Z88.0 Allergy status to penicillin; Z88.1 Allergy status to other antibiotic agents
CPT/HCPCS: 36415; 71045; 80053; 83880; 84484; 85025; 85379; 85610-TC; 93005; 93971; 99285

== ENCOUNTER 2021-08-28 21:45 | Emergency (ER) | payer OTHER, MEDICAID ==
[~2021-08-28] VITALS: Ht 162.6 cm; Wt 136.1 kg
[2021-08-28 21:50] VITALS: BP_SYST 125
[2021-08-28 22:35] LABS: HEMOGLOBIN 9.8 g/dL (12.0-16.0)
[2021-08-28 22:42] LABS: HEMATOCRIT 31.5 % (36-48); MEAN CORPUSCULAR HEMOGLOBIN 20 pg (27-31); MEAN CORPUSCULAR HGB CONC 31 % (32-36); MEAN CORPUSCULAR VOLUME 64 fL (79.0-98.0); PLATELET COUNT (AUTO) 415 K/uL (130-430); RED CELL DISTRIBUTION WIDTH 23.5 % (9.0-15.0)
[2021-08-28 22:45] LABS: ANION GAP 7 (5-15); CALCIUM 7.8 mg/dL (8.4-11.0); CHLORIDE 103 mmol/L (98-107); CREATININE 0.89 mg/dL (0.55-1.30); GLUCOSE 116 mg/dL (70-99); POTASSIUM 3.2 mmol/L (3.5-5.1); SODIUM SERUM 137 mmol/L (136-145); UREA NITROGEN, BLOOD 15 mg/dL (8-21)
[2021-08-28 22:50] VITALS: BP_SYST 125
[2021-08-28 22:57] LABS: ALANINE AMINOTRANSFERASE 13 U/L (12-78); ALBUMIN 3.2 g/dL (3.4-4.8); ASPARTATE AMINOTRANSFERASE 22 U/L (10-37); HCG,QUANTITATIVE 0 mIU/ML (0-6); TOTAL BILIRUBIN 0.1 mg/dL (0.0-1.0)
[2021-08-28 23:02] LABS: GFR AFRICAN AMERICAN 96 mL/min (>90)
[2021-08-28 23:20] LABS: INR 2.6 (0.8-1.2); PROTHROMBIN TIME 25.3 SECS (9.5-12.5)
[2021-08-28] MEDS ORDERED: IOHEXOL 350 mgI/mL, 150 ML INFUS..BTL IV ONE (23:33)
[2021-08-28 23:53] LABS: WHITE BLOOD COUNT (AUTO) 8.4 K/uL (4.8-10.8)
== END 2021-08-29 04:46 | disposition home or self-care (01) ==
LOC: SED 21:45
DX: R07.89 Other chest pain (principal); K21.9 Gastro-esophageal reflux disease without esophagitis; E11.9 Type 2 diabetes mellitus without complications; J45.909 Unspecified asthma, uncomplicated; Z88.0 Allergy status to penicillin; Z88.1 Allergy status to other antibiotic agents; Z79.899 Other long term (current) drug therapy
CPT/HCPCS: 36415; 71045; 71275; 76376; 80053; 83880; 84484; 84702; 85025; 85379; 85610; 85730; 93005 ×2; 99285; Q9967

== ENCOUNTER 2021-09-03 20:22 | Emergency (ER) | payer OTHER, MEDICAID ==
[~2021-09-03] VITALS: Ht 162.6 cm; Wt 136.1 kg
[2021-09-03 20:43] VITALS: BP_SYST 124
--- NOTE | 2021-09-03 21:47 | NUR ---
Patient placed on monitor and resting in bed without issue, waiting for Md to bedside. Will continue to monitor and watch.
--- NOTE | 2021-09-03 22:45 | NUR ---
Lab at bedside.
--- NOTE | 2021-09-03 22:52 | NUR ---
Dr. Sharma at bedside.
[2021-09-03 23:07] LABS: BASOPHILS # (AUTO) 0.1 K/uL (0.0-0.2); BASOPHILS % (AUTO) 0.6 % (0.0-2.0); EOSINOPHILS % (AUTO) 0.4 % (0.0-4.0); HEMATOCRIT 29.1 % (36-48); HEMOGLOBIN 9.4 g/dL (12.0-16.0); LYMPHOCYTES # (AUTO) 1.6 K/uL (1.0-5.5); LYMPHOCYTES % (AUTO) 18.6 % (20.5-51.5); MEAN CORPUSCULAR HEMOGLOBIN 21 pg (27-31); MEAN CORPUSCULAR HGB CONC 32 % (32-36); MEAN CORPUSCULAR VOLUME 65 fL (79.0-98.0); MONOCYTES # (AUTO) 0.4 K/uL (0.0-1.0); MONOCYTES % (AUTO) 4.8 % (1.7-9.3); NEUTROPHILS # (AUTO) 6.4 K/uL (1.8-7.7); PLATELET COUNT (AUTO) 367 K/uL (130-430); RED BLOOD CELL COUNT(AUTO) 4.49 MIL/uL (4.2-6.2); RED CELL DISTRIBUTION WIDTH 23.4 % (9.0-15.0); WHITE BLOOD COUNT (AUTO) 8.5 K/uL (4.8-10.8)
[2021-09-03 23:20] LABS: ANION GAP 8 (5-15); CALCIUM 8.1 mg/dL (8.4-11.0); CHLORIDE 107 mmol/L (98-107); CREATININE 1.08 mg/dL (0.55-1.30); GLUCOSE 109 mg/dL (70-99); POTASSIUM 3.1 mmol/L (3.5-5.1); SODIUM SERUM 141 mmol/L (136-145); UREA NITROGEN, BLOOD 15 mg/dL (8-21)
[2021-09-03 23:34] LABS: ALANINE AMINOTRANSFERASE 14 U/L (12-78); ALBUMIN 3.2 g/dL (3.4-4.8); ASPARTATE AMINOTRANSFERASE 24 U/L (10-37); HCG,QUANTITATIVE 0 mIU/ML (0-6); TOTAL BILIRUBIN 0.2 mg/dL (0.0-1.0)
[2021-09-03 23:42] LABS: GFR AFRICAN AMERICAN 77 mL/min (>90)
[2021-09-04] MEDS ORDERED: POTASSIUM CHLORIDE 20 MEQ TAB.PRT.SR PO ONE (01:45)
[2021-09-04] MEDS ORDERED: POTASSIUM CHLORIDE 20 MEQ/PKT PACKET PO ONE (02:00)
[2021-09-04 02:53] LABS: NEUTROPHILS % (AUTO) 75.6 % (40.0-70.0)
--- NOTE | 2021-09-04 03:15 | NUR ---
Patient given written and verbal discharge instructions and verbalizes understanding. ER MD discussed with patient the results and treatment provided. Patient in stable condition. ID arm band removed. IV catheter removed intact and dressing applied, no active bleeding. Rx of n/a given. Patient educated on pain management and to follow up with PMD. Pain Scale . Opportunity for questions provided and answered. Medication side effect fact sheet provided.
== END 2021-09-04 03:15 | disposition home or self-care (01) ==
LOC: SED 20:22
DX: R07.89 Other chest pain (principal); E87.6 Hypokalemia; E11.9 Type 2 diabetes mellitus without complications; R03.0 Elevated blood-pressure reading, without diagnosis of hypertension; J45.909 Unspecified asthma, uncomplicated; K21.9 Gastro-esophageal reflux disease without esophagitis; Z88.0 Allergy status to penicillin; Z88.1 Allergy status to other antibiotic agents; Z88.6 Allergy status to analgesic agent; Z79.899 Other long term (current) drug therapy
CPT/HCPCS: 36415; 71045; 80053; 84484; 84702; 85025; 85379; 93005; 99285

== ENCOUNTER 2022-03-20 01:21 | Emergency (ER) | payer OTHER, MEDICAID ==
[~2022-03-20] VITALS: Ht 162.6 cm; Wt 136.1 kg
[2022-03-20 01:21] VITALS: BP_SYST 95
[2022-03-20] MEDS ORDERED: FAMOTIDINE PF 20 MG/2 ML VIAL IVP ONE (02:30)
[2022-03-20] MEDS ORDERED: METOCLOPRAMIDE HCL 10 MG/2 ML VIAL IVP ONE (02:30)
[2022-03-20] MEDS ORDERED: LIDOCAINE VISCOUS 2%, 15 ML UDC MM ONE (04:45)
[2022-03-20] MEDS ORDERED: MAG-AL HYDROX/SIMETH 30 ML UDC PO ONE (04:45)
[2022-03-20 04:57] LABS: BASOPHILS % (AUTO) 0.5 % (0.0-2.0); EOSINOPHILS % (AUTO) 0.4 % (0.0-4.0); HEMATOCRIT 35.9 % (36-48); HEMOGLOBIN 11.2 g/dL (12.0-16.0); LYMPHOCYTES # (AUTO) 1.7 K/uL (1.0-5.5); LYMPHOCYTES % (AUTO) 17.3 % (20.5-51.5); MEAN CORPUSCULAR HEMOGLOBIN 22 pg (27-31); MEAN CORPUSCULAR HGB CONC 31 % (32-36); MEAN CORPUSCULAR VOLUME 70 fL (79.0-98.0); MONOCYTES # (AUTO) 0.7 K/uL (0.0-1.0); MONOCYTES % (AUTO) 6.8 % (1.7-9.3); NEUTROPHILS # (AUTO) 7.3 K/uL (1.8-7.7); PLATELET COUNT (AUTO) 291 K/uL (130-430); RED BLOOD CELL COUNT(AUTO) 5.13 MIL/uL (4.2-6.2); RED CELL DISTRIBUTION WIDTH 22.7 % (9.0-15.0); WHITE BLOOD COUNT (AUTO) 9.8 K/uL (4.8-10.8)
[2022-03-20 05:18] LABS: INR 1.8 (0.8-1.2); PROTHROMBIN TIME 18.4 SECS (9.5-12.5)
[2022-03-20 05:21] LABS: ANION GAP 9 (5-15); CALCIUM 8.7 mg/dL (8.4-11.0); CHLORIDE 101 mmol/L (98-107); CREATININE 1.23 mg/dL (0.55-1.30); GLUCOSE 76 mg/dL (70-99); UREA NITROGEN, BLOOD 14 mg/dL (8-21)
[2022-03-20 05:24] LABS: GFR AFRICAN AMERICAN 66 mL/min (>90)
[2022-03-20 05:28] LABS: ALANINE AMINOTRANSFERASE 34 U/L (12-78); ASPARTATE AMINOTRANSFERASE 36 U/L (10-37); TOTAL BILIRUBIN 0.4 mg/dL (0.0-1.0)
[2022-03-20] MEDS ORDERED: SUCR1ORA4 PO (06:03)
[2022-03-20] MEDS ORDERED: HYOS0.1275 PO (06:08)
[2022-03-20] MEDS ORDERED: METO-290 PO (06:08)
[2022-03-20] MEDS ORDERED: ENOXAPARIN SODIUM 120 MG/0.8 ML SYRINGE SUBCUT ONE (06:15)
[2022-03-20] MEDS ORDERED: WARF10TA43 PO (06:19)
[2022-03-20 08:20] LABS: BILIRUBIN,URINE NEGATIVE (NEGATIVE); BLOOD, URINE 1+ (NEGATIVE); COLOR,URINE YELLOW (YELLOW); GLUCOSE,URINE NEGATIVE (NEGATIVE); KETONES,URINE TRACE (NEGATIVE); LEUKOCYTE ESTERASE ,URINE 3+ (NEGATIVE); NITRITE, URINE NEGATIVE (NEGATIVE); PROTEIN URINE NEGATIVE (NEGATIVE); UROBILINOGEN,URINE 0.2 (0.2-1.0)
[2022-03-20 08:47] LABS: CLARITY/URINE HAZY (CLEAR)
[2022-03-20 08:55] LABS: BACTERIA,URINE MANY /HPF (None Seen); MUCUS,URINE 1+ /LPF (None Seen)
== END 2022-03-20 06:31 | disposition home or self-care (01) ==
LOC: SED 01:21
DX: K29.70 Gastritis, unspecified, without bleeding (principal); E11.9 Type 2 diabetes mellitus without complications; J45.909 Unspecified asthma, uncomplicated; K21.9 Gastro-esophageal reflux disease without esophagitis; Z88.1 Allergy status to other antibiotic agents; Z88.0 Allergy status to penicillin; Z79.899 Other long term (current) drug therapy
CPT/HCPCS: 99285; 96374; 71045; 96375; 80053; 81000; 83880; 85025; 85610; 87086; 84484; 36415; 93005; 74021; J2001

== ENCOUNTER 2022-09-25 22:02 | Emergency (ER) | payer OTHER, MEDICAID ==
[~2022-09-25] VITALS: Ht 162.6 cm; Wt 136.1 kg
[~2022-09-25 22:02] MED LIST changes: +HYOS0.1275 PO; +METO-290 PO; +SUCR1ORA4 PO; +WARF10TA43 PO
[2022-09-25 22:20] VITALS: BP_SYST 108
--- NOTE | 2022-09-25 22:24 | NUR ---
Patient triaged and placed in waiting room. VSS and patient appears in no acute distress at this time. Accompanied by SELF, awaiting available bed, and MD notified of need for MSE.
--- NOTE | 2022-09-25 22:30 | NUR ---
Pt from home with no medical complaint. Pt denies pain, and discomfort at this time, NAD. Pt requesting INR because she took warfrain when told to stop by her dentist prior to procedure. WOLF. REQUESTED FOR MSE.
[2022-09-26 00:15] LABS: INR 2.5 (0.8-1.2); PROTHROMBIN TIME 25.3 SECS (9.5-12.5)
--- NOTE | 2022-09-26 00:29 | NUR ---
Patient to ER bed CH1 to gown for evaluation. Side rails up.
--- NOTE | 2022-09-26 00:36 | NUR ---
Dr. Rojas with patient in [facility] for MSE.
[2022-09-26] MEDS ORDERED: MORPHINE 4 MG INJ. 4 MG/ML VIAL IM ONE (00:45)
[2022-09-26 01:00] VITALS: BP_SYST 108
--- NOTE | 2022-09-26 01:00 | NUR ---
Patient given written and verbal discharge instructions and verbalizes understanding. ER DR. HAYES discussed with patient the results and treatment provided. Patient in stable condition. ID arm band removed. Patient educated on pain management and to follow up with PMD. Pain Scale 0. Opportunity for questions provided and answered. Medication side effect fact sheet provided.
== END 2022-09-26 01:00 | disposition home or self-care (01) ==
LOC: SED 22:02
DX: K08.89 Other specified disorders of teeth and supporting structures (principal); J45.909 Unspecified asthma, uncomplicated; E11.9 Type 2 diabetes mellitus without complications; K21.9 Gastro-esophageal reflux disease without esophagitis; Z88.0 Allergy status to penicillin; Z88.1 Allergy status to other antibiotic agents; Z88.6 Allergy status to analgesic agent; Z79.899 Other long term (current) drug therapy
CPT/HCPCS: 99283; 85610; 85730; 36415; 96372; J2270

== ENCOUNTER 2022-10-25 02:08 | Inpatient (IN) | payer OTHER, MEDICAID ==
[~2022-10-25] VITALS: Ht 162.6 cm; Wt 142.9 kg
[2022-10-25] VITALS (7 sets, daily range): BP systolic 101–129; PULSE 82–88; RESP 18–22; TEMP 96.7–98.3; O2SAT 96–100
[~2022-10-25 02:08] MED LIST changes: -WARF7.5T49
[2022-10-25] MEDS ORDERED: MORPHINE 4 MG INJ. 4 MG/ML VIAL IM ONE (02:45)
[2022-10-25] MEDS ORDERED: MORPHINE 4 MG INJ. 4 MG/ML VIAL IVP ONE ×2 (02:45→06:30)
[2022-10-25 03:36] LABS: ALANINE AMINOTRANSFERASE 11 U/L (12-78); ALBUMIN 3.5 g/dL (3.4-4.8); ANION GAP 8 (5-15); ASPARTATE AMINOTRANSFERASE 21 U/L (10-37); CALCIUM 8.6 mg/dL (8.4-11.0); CARBON DIOXIDE 27 mmol/L (23-29); CHLORIDE 104 mmol/L (98-107); CREATININE 1.03 mg/dL (0.55-1.30); GFR AFRICAN AMERICAN 81 mL/min (>90); GLUCOSE 78 mg/dL (74-106); SODIUM SERUM 139 mmol/L (136-145); TOTAL BILIRUBIN 0.3 mg/dL (0.0-1.0); TOTAL PROTEIN, SERUM 6.9 g/dL (6.4-8.3); UREA NITROGEN, BLOOD 13 mg/dL (8-21)
[2022-10-25 03:41] LABS: GFR NON AFRICAN-AMERICAN 67 mL/min (>90)
[2022-10-25 03:42] LABS: POTASSIUM 2.6 mmol/L (3.5-5.1)
[2022-10-25 03:47] LABS: PROTHROMBIN TIME 45.8 SECS (9.5-12.5)
[2022-10-25 03:48] LABS: INR 4.7 (0.8-1.2)
[2022-10-25 03:58] LABS: BASOPHILS % (AUTO) 0.4 % (0.0-2.0); EOSINOPHILS % (AUTO) 0.4 % (0.0-4.0); HEMATOCRIT 30.4 % (36-48); HEMOGLOBIN 9.7 g/dL (12.0-16.0); LYMPHOCYTES # (AUTO) 1.7 K/uL (1.0-5.5); LYMPHOCYTES % (AUTO) 19.9 % (20.5-51.5); MEAN CORPUSCULAR HEMOGLOBIN 23 pg (27-31); MEAN CORPUSCULAR HGB CONC 32 % (32-36); MEAN CORPUSCULAR VOLUME 70 fL (79.0-98.0); MONOCYTES # (AUTO) 0.7 K/uL (0.0-1.0); MONOCYTES % (AUTO) 8.4 % (1.7-9.3); NEUTROPHILS % (AUTO) 70.9 % (40.0-70.0); PLATELET COUNT (AUTO) 379 K/uL (130-430); RED BLOOD CELL COUNT(AUTO) 4.33 MIL/uL (4.2-6.2); RED CELL DISTRIBUTION WIDTH 19.6 % (9.0-15.0); WHITE BLOOD COUNT (AUTO) 8.4 K/uL (4.8-10.8)
[2022-10-25] MEDS ORDERED: POTASSIUM CHLORIDE 20 MEQ TAB.PRT.SR PO ONE (04:00)
[2022-10-25] MEDS ORDERED: PANT40TA45 PO (06:02)
[2022-10-25] MEDS ORDERED: FURO40TA5 PO (06:02)
[2022-10-25] MEDS ORDERED: METO10TA3 PO (06:02)
[2022-10-25] MEDS ORDERED: ONDA4TAB55 PO (06:02)
[2022-10-25] MEDS ORDERED: ZOLP10TA2 PO (06:02)
[2022-10-25] MEDS ORDERED: HYDR200T38 PO (06:02)
[2022-10-25] MEDS ORDERED: HYDR-3927 PO (06:02)
[2022-10-25] MEDS ORDERED: GABA-331 PO (06:02)
[2022-10-25] MEDS ORDERED: DOCU-156 PO (06:02)
[2022-10-25] MEDS ORDERED: PRED10TA PO (06:18)
[2022-10-25] MEDS ORDERED: METO-442 PO (06:18)
[2022-10-25] MEDS ORDERED: CYCL10TA24 PO (06:20)
[2022-10-25] MEDS ORDERED: NALOXONE HCL 0.4 MG/ML AMP (NARCAN) IVP PRN ×2 (11:45→14:15)
[2022-10-25] MEDS: HYDROcodone/ACETAMIN 10-325 MG TAB PO PRN (12:22)
[2022-10-25] MEDS ORDERED: HYOSCYAMINE SULFATE 0.125 MG TABLET PO PRN (14:15)
[2022-10-25] MEDS ORDERED: HYDROcodone/ACETAMIN 10-325 MG TAB PO PRN (14:15)
[2022-10-25] MEDS ORDERED: NON-FORMULARY MEDICATION (Alprazolam 2 MG) PO SCH (15:00)
[2022-10-25] MEDS ORDERED: METOPROLOL TARTRATE 50 MG TABLET PO ONE (16:15)
[2022-10-25] MEDS ORDERED: ZOLPIDEM TARTRATE 5 MG TABLET PO PRN (21:00)
[2022-10-25] MEDS: SIMVASTATIN 40 MG TABLET PO SCH (21:13)
[2022-10-25] MEDS: ALPRAZolam 0.25 MG TABLET PO SCH (21:13)
[2022-10-25] MEDS: HYDROXYCHLOROQUINE SULFATE 200 MG TABLET PO SCH (21:13)
[2022-10-25] MEDS: BACLOFEN 10 MG TABLET PO SCH (21:13)
[2022-10-25] MEDS: FUROSEMIDE 40 MG TABLET PO SCH (21:13)
[2022-10-25] MEDS: METOCLOPRAMIDE HCL 10 MG TABLET PO SCH (21:13)
[2022-10-25] MEDS: DOCUSATE SODIUM 100 MG CAPSULE PO SCH (21:13)
[2022-10-25] MEDS: azaTHIOprine 50 MG TABLET PO SCH (21:14)
[2022-10-26] VITALS (7 sets, daily range): BP systolic 104–157; PULSE 52–84; RESP 18–20; TEMP 96.4–98; O2SAT 94–100
[2022-10-26] MEDS: HYDROcodone/ACETAMIN 10-325 MG TAB PO PRN ×3 (02:18→20:42)
[2022-10-26 06:54] LABS: CALCIUM 7.9 mg/dL (8.4-11.0); CREATININE 0.91 mg/dL (0.55-1.30); POTASSIUM 3.1 mmol/L (3.5-5.1)
[2022-10-26 07:01] LABS: TOTAL BILIRUBIN 0.3 mg/dL (0.0-1.0); TOTAL PROTEIN, SERUM 6.2 g/dL (6.4-8.3)
[2022-10-26 07:03] LABS: TOTAL IRON BIND. CAPACITY 277 ug/dL (250-450)
[2022-10-26 07:22] LABS: PROTHROMBIN TIME 41.2 SECS (9.5-12.5)
[2022-10-26 07:45] LABS: INR 4.2 (0.8-1.2)
[2022-10-26] MEDS ORDERED: LINACLOTIDE 145 MCG PO SCH (09:00)
[2022-10-26] MEDS: LINACLOTIDE 145 MCG PO SCH (09:00)
[2022-10-26] MEDS ORDERED: WARFARIN SODIUM 7.5 MG TABLET PO SCH (09:00)
[2022-10-26] MEDS: azaTHIOprine 50 MG TABLET PO SCH ×2 (09:00→21:58)
[2022-10-26] MEDS: FUROSEMIDE 40 MG TABLET PO SCH ×2 (09:13→21:58)
[2022-10-26] MEDS: predniSONE 10 MG TABLET PO SCH (09:13)
[2022-10-26] MEDS: BACLOFEN 10 MG TABLET PO SCH ×2 (09:14→21:56)
[2022-10-26] MEDS: DOCUSATE SODIUM 100 MG CAPSULE PO SCH ×2 (09:14→21:58)
[2022-10-26] MEDS: GABAPENTIN 300 MG CAPSULE PO SCH (09:14)
[2022-10-26] MEDS: ASPIRIN 325 MG TABLET (ECOTRIN) PO SCH (09:14)
[2022-10-26] MEDS: ALPRAZolam 0.25 MG TABLET PO SCH ×3 (09:15→21:57)
[2022-10-26] MEDS: PANTOPRAZOLE SODIUM 40 MG TAB PO SCH (09:16)
[2022-10-26] MEDS: METOCLOPRAMIDE HCL 10 MG TABLET PO SCH ×2 (09:16→21:56)
[2022-10-26] MEDS: METOPROLOL TARTRATE 50 MG TABLET PO SCH (09:16)
[2022-10-26] MEDS: HYDROXYCHLOROQUINE SULFATE 200 MG TABLET PO SCH ×2 (09:17→21:00)
[2022-10-26] MEDS: POTASSIUM CHLORIDE 20 MEQ TAB.PRT.SR PO SCH ×2 (09:25→21:58)
[2022-10-26] MEDS: SIMVASTATIN 40 MG TABLET PO SCH (22:11)
[2022-10-27 00:43] VITALS: BP_SYST 132; PULSE 79; RESP 20; TEMP 97.9; O2SAT 100
[2022-10-27] MEDS: HYDROcodone/ACETAMIN 10-325 MG TAB PO PRN ×3 (03:16→17:27)
[2022-10-27 05:27] LABS: BASOPHILS # (AUTO) 0.1 K/uL (0.0-0.2); BASOPHILS % (AUTO) 0.7 % (0.0-2.0); EOSINOPHILS # (AUTO) 0.1 K/uL (0.0-0.4); EOSINOPHILS % (AUTO) 1.6 % (0.0-4.0); HEMATOCRIT 31.7 % (36-48); HEMOGLOBIN 9.9 g/dL (12.0-16.0); LYMPHOCYTES # (AUTO) 1.8 K/uL (1.0-5.5); LYMPHOCYTES % (AUTO) 23.6 % (20.5-51.5); MEAN CORPUSCULAR HEMOGLOBIN 22 pg (27-31); MEAN CORPUSCULAR HGB CONC 31 % (32-36); MEAN CORPUSCULAR VOLUME 71 fL (79.0-98.0); MONOCYTES # (AUTO) 0.5 K/uL (0.0-1.0); MONOCYTES % (AUTO) 6.8 % (1.7-9.3); NEUTROPHILS # (AUTO) 5.2 K/uL (1.8-7.7); NEUTROPHILS % (AUTO) 67.3 % (40.0-70.0); PLATELET COUNT (AUTO) 380 K/uL (130-430); RED CELL DISTRIBUTION WIDTH 19.3 % (9.0-15.0); WHITE BLOOD COUNT (AUTO) 7.7 K/uL (4.8-10.8)
[2022-10-27 05:41] LABS: INR 2.7 (0.8-1.2); PROTHROMBIN TIME 26.9 SECS (9.5-12.5)
[2022-10-27 06:31] LABS: ALBUMIN 3.2 g/dL (3.4-4.8); CALCIUM 8.3 mg/dL (8.4-11.0); CREATININE 0.86 mg/dL (0.55-1.30); POTASSIUM 3.4 mmol/L (3.5-5.1); TOTAL BILIRUBIN 0.3 mg/dL (0.0-1.0); TOTAL PROTEIN, SERUM 6.6 g/dL (6.4-8.3)
[2022-10-27 06:41] LABS: THYROID STIMULATING HORMONE 1.32 uIu/mL (0.36-3.74)
[2022-10-27 08:00] VITALS: BP_SYST 163; PULSE 100; RESP 20; TEMP 96.9; O2SAT 100
[2022-10-27] MEDS: predniSONE 10 MG TABLET PO SCH (08:55)
[2022-10-27] MEDS: GABAPENTIN 300 MG CAPSULE PO SCH (08:55)
[2022-10-27] MEDS: METOCLOPRAMIDE HCL 10 MG TABLET PO SCH (08:56)
[2022-10-27] MEDS: ALPRAZolam 0.25 MG TABLET PO SCH ×2 (08:56→14:48)
[2022-10-27] MEDS: ASPIRIN 325 MG TABLET (ECOTRIN) PO SCH (08:56)
[2022-10-27] MEDS: DOCUSATE SODIUM 100 MG CAPSULE PO SCH (08:56)
[2022-10-27] MEDS: FUROSEMIDE 40 MG TABLET PO SCH (08:56)
[2022-10-27] MEDS: BACLOFEN 10 MG TABLET PO SCH (08:56)
[2022-10-27] MEDS: POTASSIUM CHLORIDE 20 MEQ TAB.PRT.SR PO SCH (08:56)
[2022-10-27] MEDS: PANTOPRAZOLE SODIUM 40 MG TAB PO SCH (08:56)
[2022-10-27] MEDS: METOPROLOL TARTRATE 50 MG TABLET PO SCH (08:57)
[2022-10-27] MEDS: LINACLOTIDE 145 MCG PO SCH (09:00)
[2022-10-27] MEDS: azaTHIOprine 50 MG TABLET PO SCH (09:04)
[2022-10-27] MEDS: HYDROXYCHLOROQUINE SULFATE 200 MG TABLET PO SCH (09:05)
[2022-10-27] MEDS: HYDROCORTISONE 2.5%, 30 GM TOPICAL CREAM TP PRN ×2 (09:05→14:49)
[2022-10-27 11:05] LABS: ANISOCYTOSIS 1+; HYPOCHROMASIA 1+; OVALOCYTES FEW
[2022-10-27 11:13] VITALS: BP_SYST 109; PULSE 70; RESP 17; TEMP 98; O2SAT 100
[2022-10-27 16:30] VITALS: BP_SYST 110; PULSE 72; RESP 18; TEMP 98.2; O2SAT 99
[2022-10-27 16:55] VITALS: BP_SYST 120; PULSE 94; RESP 17; TEMP 97.9; O2SAT 95
== END 2022-10-27 18:30 | disposition home or self-care (01) | DRG 206 ==
LOC: SED 02:08 → STU 05:52
PROVIDERS: ADMIT Family Medicine; ATTEND Family Medicine
DX: M94.0 Chondrocostal junction syndrome [Tietze] (principal); Z68.43 Body mass index [BMI] 50.0-59.9, adult; D64.9 Anemia, unspecified; I10 Essential (primary) hypertension; M32.9 Systemic lupus erythematosus, unspecified; M79.7 Fibromyalgia; E66.01 Morbid (severe) obesity due to excess calories; I34.0 Nonrheumatic mitral (valve) insufficiency; F41.9 Anxiety disorder, unspecified; Z88.1 Allergy status to other antibiotic agents; Z88.0 Allergy status to penicillin; Z88.8 Allergy status to other drugs, medicaments and biological substances; Z79.899 Other long term (current) drug therapy; Z98.84 Bariatric surgery status; Z95.2 Presence of prosthetic heart valve; Z86.718 Personal history of other venous thrombosis and embolism; Z86.711 Personal history of pulmonary embolism; Z79.01 Long term (current) use of anticoagulants
CPT/HCPCS: 36415; 71045; 80053; 83540; 83550; 83880; 84443; 84484; 85025; 85379; 85610-TC; 85730-TC; 93005; 93306; 96374; 96376; 97110-GP; 97116-GP; 97163-GP; 99285; G0378; J2270; J7500; J7512; J8597

== ENCOUNTER 2022-11-26 00:36 | Emergency (ER) | payer OTHER, MEDICAID ==
[~2022-11-26] VITALS: Ht 162.6 cm; Wt 130.6 kg
[~2022-11-26 00:36] MED LIST changes: -ALPR2TAB2 PO; -CEPH-548 PO; +CYCL10TA24 PO; -DOCU-144 PO; +DOCU-156 PO; -FURO20TA4 PO; +FURO40TA5 PO; +GABA-331 PO; -GABA-531 PO; -GABA-776 PO; -HYDR-3917 PO; +HYDR-3927 PO; -HYDR-4274 PO; +HYDR200T38 PO; -HYDR200T80; -METO-290 PO; +METO-442 PO; +METO10TA3 PO; -NAPR-1172 PO; -OMEP20CA15 PO; +PANT40TA45 PO; +PRED10TA PO; -PRED50TA; -SUCR1ORA4 PO; -WARF10TA43 PO; -ZOLP-189 PO; +ZOLP10TA2 PO; -ZOLP10TA6
[2022-11-26 01:08] VITALS: BP_SYST 101; PULSE 108; RESP 16; TEMP 97.3; O2SAT 99
[2022-11-26] MEDS ORDERED: LIDOCAINE 4% TOPICAL 50 ML BOTTLE MM ONE ×2 (01:45)
[2022-11-26] MEDS ORDERED: TRANEXAMIC ACID 1,000 MG/10 ML VIAL IV ONE (01:45)
[2022-11-26] MEDS ORDERED: TRANEXAMIC ACID 1,000 MG/10 ML VIAL ONE (01:46)
[2022-11-26] MEDS ORDERED: TRANEXAMIC ACID 1,000 MG/10 ML VIAL TP ONE (02:00)
[2022-11-26 02:37] LABS: BASOPHILS % (AUTO) 0.3 % (0.0-2.0); HEMATOCRIT 26.7 % (36-48); HEMOGLOBIN 8.4 g/dL (12.0-16.0); LYMPHOCYTES % (AUTO) 8.3 % (20.5-51.5); MEAN CORPUSCULAR HEMOGLOBIN 22 pg (27-31); MEAN CORPUSCULAR HGB CONC 31 % (32-36); MEAN CORPUSCULAR VOLUME 70 fL (79.0-98.0); MONOCYTES # (AUTO) 0.6 K/uL (0.0-1.0); MONOCYTES % (AUTO) 5.2 % (1.7-9.3); NEUTROPHILS % (AUTO) 86.2 % (40.0-70.0); PLATELET COUNT (AUTO) 422 K/uL (130-430); RED BLOOD CELL COUNT(AUTO) 3.84 MIL/uL (4.2-6.2); RED CELL DISTRIBUTION WIDTH 20.4 % (9.0-15.0); WHITE BLOOD COUNT (AUTO) 11.7 K/uL (4.8-10.8)
[2022-11-26 02:39] LABS: CALCIUM 8.4 mg/dL (8.4-11.0); CREATININE 1.32 mg/dL (0.55-1.30); POTASSIUM 4.3 mmol/L (3.5-5.1)
[2022-11-26] MEDS ORDERED: MORPHINE 4 MG INJ. 4 MG/ML VIAL IM ONE (02:45)
[2022-11-26 02:47] LABS: PROTHROMBIN TIME 76.1 SECS (9.5-12.5)
[2022-11-26 02:48] LABS: INR 8.1 (0.8-1.2)
[2022-11-26] MEDS ORDERED: ACETAMINOPHEN 500 MG TABLET PO ONE (07:30)
[2022-11-26 11:06] VITALS: BP_SYST 97; PULSE 93; RESP 20; TEMP 97.6; O2SAT 98
== END 2022-11-26 08:15 | disposition home or self-care (01) ==
LOC: SED 00:36
DX: S01.512A Laceration without foreign body of oral cavity, initial encounter (principal); D64.9 Anemia, unspecified; D68.9 Coagulation defect, unspecified; J45.909 Unspecified asthma, uncomplicated; K21.9 Gastro-esophageal reflux disease without esophagitis; E11.9 Type 2 diabetes mellitus without complications; Z88.0 Allergy status to penicillin; Z88.1 Allergy status to other antibiotic agents; Z88.6 Allergy status to analgesic agent; Z86.718 Personal history of other venous thrombosis and embolism; Z79.899 Other long term (current) drug therapy; X58.XXXA Exposure to other specified factors, initial encounter; Y93.89 Activity, other specified; Y92.89 Other specified places as the place of occurrence of the external cause; Y99.8 Other external cause status
CPT/HCPCS: 99283; 80048; 85025; 85610; 85730; 36415; 96372; J2270; J3490

== ENCOUNTER 2022-11-27 15:21 | Emergency (ER) | payer OTHER, MEDICAID ==
[~2022-11-27] VITALS: Ht 162.6 cm; Wt 136.1 kg
[2022-11-27 15:36] VITALS: BP_SYST 101; PULSE 117; RESP 20; TEMP 97.5; O2SAT 100
[2022-11-27 17:12] LABS: BASOPHILS % (AUTO) 0.5 % (0.0-2.0); EOSINOPHILS # (AUTO) 0.1 K/uL (0.0-0.4); EOSINOPHILS % (AUTO) 0.7 % (0.0-4.0); HEMOGLOBIN 9.2 g/dL (12.0-16.0); LYMPHOCYTES # (AUTO) 1.3 K/uL (1.0-5.5); LYMPHOCYTES % (AUTO) 15.6 % (20.5-51.5); MEAN CORPUSCULAR HEMOGLOBIN 22 pg (27-31); MEAN CORPUSCULAR HGB CONC 31 % (32-36); MEAN CORPUSCULAR VOLUME 71 fL (79.0-98.0); MONOCYTES # (AUTO) 0.7 K/uL (0.0-1.0); MONOCYTES % (AUTO) 8.7 % (1.7-9.3); NEUTROPHILS # (AUTO) 6.4 K/uL (1.8-7.7); NEUTROPHILS % (AUTO) 74.5 % (40.0-70.0); PLATELET COUNT (AUTO) 453 K/uL (130-430); RED BLOOD CELL COUNT(AUTO) 4.24 MIL/uL (4.2-6.2); RED CELL DISTRIBUTION WIDTH 20.2 % (9.0-15.0); WHITE BLOOD COUNT (AUTO) 8.5 K/uL (4.8-10.8)
[2022-11-27 17:28] LABS: ALBUMIN 3.5 g/dL (3.4-4.8); CALCIUM 8.5 mg/dL (8.4-11.0); CREATININE 1.25 mg/dL (0.55-1.30); POTASSIUM 3.8 mmol/L (3.5-5.1); TOTAL BILIRUBIN 0.4 mg/dL (0.0-1.0); TOTAL PROTEIN, SERUM 7.7 g/dL (6.4-8.3)
[2022-11-27] MEDS ORDERED: HYDROcodone/ACETAMIN 10-325 MG TAB PO ONE (17:30)
[2022-11-27] MEDS ORDERED: NACL 0.9% 1,000 ML IV ONE (17:30)
[2022-11-27 17:42] LABS: INR 6.8 (0.8-1.2); PROTHROMBIN TIME 64.1 SECS (9.5-12.5)
[2022-11-27 18:10] LABS: ANISOCYTOSIS 2+; HYPOCHROMASIA 1+; OVALOCYTES MODERATE
[2022-11-27] MEDS ORDERED: IBUPROFEN 400 MG TABLET PO ONE (20:00)
[2022-11-27] MEDS ORDERED: OXYCODONE/ACETAMINOPHEN 5-325 TABLET PO ONE (20:15)
[2022-11-27 20:41] VITALS: BP_SYST 101; PULSE 117; RESP 20; TEMP 97.5; O2SAT 100
== END 2022-11-27 20:40 | disposition home or self-care (01) ==
LOC: SED 15:21
DX: S09.90XA Unspecified injury of head, initial encounter (principal); R79.1 Abnormal coagulation profile; R55 Syncope and collapse; R53.1 Weakness; J45.909 Unspecified asthma, uncomplicated; E11.9 Type 2 diabetes mellitus without complications; K21.9 Gastro-esophageal reflux disease without esophagitis; Z88.0 Allergy status to penicillin; Z88.1 Allergy status to other antibiotic agents; Z88.6 Allergy status to analgesic agent; Z79.899 Other long term (current) drug therapy; W22.8XXA Striking against or struck by other objects, initial encounter; Y93.89 Activity, other specified; Y92.89 Other specified places as the place of occurrence of the external cause; Y99.8 Other external cause status
CPT/HCPCS: 99285; 96360; 70450; 71045; 80053; 85025; 85610; 36415; 93005; 76376; J7030

== ENCOUNTER 2022-12-15 05:00 | Emergency (ER) | payer OTHER, MEDICAID ==
[~2022-12-15] VITALS: Ht 162.6 cm; Wt 128.8 kg
[2022-12-15 05:27] VITALS: BP_SYST 123; PULSE 80; RESP 20; TEMP 97.6; O2SAT 97
[2022-12-15 06:01] LABS: BASOPHILS % (AUTO) 0.6 % (0.0-2.0); EOSINOPHILS # (AUTO) 0.1 K/uL (0.0-0.4); EOSINOPHILS % (AUTO) 0.9 % (0.0-4.0); HEMATOCRIT 24.4 % (36-48); HEMOGLOBIN 7.4 g/dL (12.0-16.0); LYMPHOCYTES # (AUTO) 2.2 K/uL (1.0-5.5); LYMPHOCYTES % (AUTO) 34.1 % (20.5-51.5); MEAN CORPUSCULAR HEMOGLOBIN 21 pg (27-31); MEAN CORPUSCULAR HGB CONC 30 % (32-36); MEAN CORPUSCULAR VOLUME 71 fL (79.0-98.0); MONOCYTES # (AUTO) 0.6 K/uL (0.0-1.0); MONOCYTES % (AUTO) 9.2 % (1.7-9.3); NEUTROPHILS # (AUTO) 3.5 K/uL (1.8-7.7); NEUTROPHILS % (AUTO) 55.2 % (40.0-70.0); PLATELET COUNT (AUTO) 342 K/uL (130-430); RED BLOOD CELL COUNT(AUTO) 3.44 MIL/uL (4.2-6.2); RED CELL DISTRIBUTION WIDTH 20.7 % (9.0-15.0); WHITE BLOOD COUNT (AUTO) 6.4 K/uL (4.8-10.8)
[2022-12-15 06:34] LABS: INR 6.3 (0.8-1.2); PROTHROMBIN TIME 60.3 SECS (9.5-12.5)
[2022-12-15 06:39] LABS: SERUM HCG (QUALITATIVE) NEGATIVE (NEGATIVE)
[2022-12-15 06:45] LABS: BILIRUBIN,URINE NEGATIVE (NEGATIVE); BLOOD, URINE 2+ (NEGATIVE); CLARITY/URINE Clear (CLEAR); COLOR,URINE YELLOW (YELLOW); GLUCOSE,URINE NEGATIVE (NEGATIVE); KETONES,URINE NEGATIVE (NEGATIVE); NITRITE, URINE NEGATIVE (NEGATIVE); PH,URINE 5.5 (5.0-8.0); PROTEIN URINE 1+ (NEGATIVE); UROBILINOGEN,URINE 0.2 (0.2-1.0)
[2022-12-15 06:47] LABS: LEUKOCYTE ESTERASE ,URINE TRACE (NEGATIVE)
[2022-12-15 06:55] LABS: BACTERIA,URINE MODERATE /HPF (None Seen)
[2022-12-15 07:31] VITALS: TEMP 96.8
[2022-12-15] MEDS ORDERED: HYDROcodone/ACETAMIN 10-325 MG TAB PO ONE (07:45)
[2022-12-15 08:25] LABS: CALCIUM 7.8 mg/dL (8.4-11.0); CREATININE 1.11 mg/dL (0.55-1.30); POTASSIUM 3.2 mmol/L (3.5-5.1)
[2022-12-15 08:31] LABS: ALBUMIN 2.8 g/dL (3.4-4.8); TOTAL BILIRUBIN 0.2 mg/dL (0.0-1.0); TOTAL PROTEIN, SERUM 5.9 g/dL (6.4-8.3)
[2022-12-15] MEDS ORDERED: ONDA-8 TL (10:17)
[2022-12-15] MEDS ORDERED: HYDR-3927 PO (10:17)
[2022-12-15 12:03] VITALS: BP_SYST 113; PULSE 60; O2SAT 95
== END 2022-12-15 10:42 | disposition home or self-care (01) ==
LOC: SED 05:00
DX: K80.50 Calculus of bile duct without cholangitis or cholecystitis without obstruction (principal); R19.7 Diarrhea, unspecified; R10.84 Generalized abdominal pain; J45.909 Unspecified asthma, uncomplicated; E11.9 Type 2 diabetes mellitus without complications; K21.9 Gastro-esophageal reflux disease without esophagitis; Z88.0 Allergy status to penicillin; Z88.1 Allergy status to other antibiotic agents; Z88.6 Allergy status to analgesic agent; Z79.899 Other long term (current) drug therapy
CPT/HCPCS: 36415; 76376; 76705; 80053; 81000; 81025; 82150; 83605; 83615; 83690; 84703; 85025; 85610-TC; 87086; 87230-TC; 99284

== ENCOUNTER 2023-01-27 23:41 | Emergency (ER) | payer OTHER, MEDICAID ==
[~2023-01-27] VITALS: Ht 162.6 cm; Wt 124.3 kg
[~2023-01-27 23:41] MED LIST changes: +ONDA-8 TL
[2023-01-27 23:55] VITALS: BP_SYST 123; PULSE 98; RESP 20; TEMP 98.3; O2SAT 99
[2023-01-28] MEDS ORDERED: BUPIVACAINE /PF 0.25% 30 ML VIAL INJ ONE (00:45)
[2023-01-28] MEDS ORDERED: HYDROcodone/ACETAMIN 5-325 MG TAB (NORCO/ VICODIN) PO ONE (01:15)
[2023-01-28 01:40] VITALS: BP_SYST 120; PULSE 95; RESP 18; TEMP 98.1; O2SAT 98
== END 2023-01-28 01:40 | disposition home or self-care (01) ==
LOC: SED 23:41
DX: K08.89 Other specified disorders of teeth and supporting structures (principal); J45.909 Unspecified asthma, uncomplicated; E11.9 Type 2 diabetes mellitus without complications; K21.9 Gastro-esophageal reflux disease without esophagitis; Z88.0 Allergy status to penicillin; Z88.1 Allergy status to other antibiotic agents; Z88.6 Allergy status to analgesic agent; Z79.899 Other long term (current) drug therapy
CPT/HCPCS: 64400; 99284; J3490

== ENCOUNTER 2023-02-24 21:51 | Emergency (ER) | payer OTHER, MEDICAID ==
[~2023-02-24] VITALS: Ht 162.6 cm; Wt 122.9 kg
[2023-02-24 21:59] VITALS: BP_SYST 120; PULSE 102; RESP 22; TEMP 97.6; O2SAT 99
[2023-02-24] MEDS ORDERED: FAMOTIDINE PF 20 MG/2 ML VIAL IVP ONE (22:45)
[2023-02-24] MEDS ORDERED: NACL 0.9% 1,000 ML IV ONE (22:45)
[2023-02-24] MEDS ORDERED: ONDANSETRON HCL 4 MG/2 ML VIAL IVP ONE (22:45)
[2023-02-24 22:58] LABS: BILIRUBIN,URINE NEGATIVE (NEGATIVE); BLOOD, URINE 3+ (NEGATIVE); CLARITY/URINE CLEAR (CLEAR); COLOR,URINE YELLOW (YELLOW); GLUCOSE,URINE NEGATIVE (NEGATIVE); KETONES,URINE NEGATIVE (NEGATIVE); LEUKOCYTE ESTERASE ,URINE 1+ (NEGATIVE); NITRITE, URINE NEGATIVE (NEGATIVE); PROTEIN URINE NEGATIVE (NEGATIVE); UROBILINOGEN,URINE 0.2 (0.2-1.0)
[2023-02-24 23:26] LABS: BASOPHILS % (AUTO) 0.2 % (0.0-2.0); HEMATOCRIT 26.7 % (36-48); HEMOGLOBIN 7.8 g/dL (12.0-16.0); LYMPHOCYTES # (AUTO) 1.5 K/uL (1.0-5.5); LYMPHOCYTES % (AUTO) 21.1 % (20.5-51.5); MEAN CORPUSCULAR HEMOGLOBIN 18 pg (27-31); MEAN CORPUSCULAR HGB CONC 29 % (32-36); MEAN CORPUSCULAR VOLUME 63 fL (79.0-98.0); MONOCYTES # (AUTO) 0.6 K/uL (0.0-1.0); NEUTROPHILS # (AUTO) 4.9 K/uL (1.8-7.7); NEUTROPHILS % (AUTO) 69.7 % (40.0-70.0); PLATELET COUNT (AUTO) 413 K/uL (130-430); RED BLOOD CELL COUNT(AUTO) 4.25 MIL/uL (4.2-6.2)
[2023-02-24 23:27] LABS: BACTERIA,URINE None Seen /HPF (None Seen); RBC,URINE >100 /HPF (0-3)
[2023-02-24 23:45] LABS: INR 4.9 (0.8-1.2); PROTHROMBIN TIME 47.4 SECS (9.5-12.5)
[2023-02-24 23:58] LABS: ANION GAP 6 (5-15); CALCIUM 8.4 mg/dL (8.4-11.0); CARBON DIOXIDE 26 mmol/L (23-29); CHLORIDE 106 mmol/L (98-107); CREATININE 1.19 mg/dL (0.55-1.30); GFR AFRICAN AMERICAN 68 mL/min (>90); GFR NON AFRICAN-AMERICAN 56 mL/min (>90); GLUCOSE 73 mg/dL (74-106); POTASSIUM 3.7 mmol/L (3.5-5.1); SODIUM SERUM 138 mmol/L (136-145); UREA NITROGEN, BLOOD 12 mg/dL (8-21)
[2023-02-25] MEDS ORDERED: DICYCLOMINE HCL 10 MG CAPSULE PO ONE
[2023-02-25] MEDS ORDERED: ACETAMINOPHEN 325 MG TABLET PO ONE
[2023-02-25] MEDS ORDERED: DICYCLOMINE HCL 10 MG/5 ML SOLUTION PO ONE
[2023-02-25 00:05] LABS: ALANINE AMINOTRANSFERASE 21 U/L (12-78); ALBUMIN 2.4 g/dL (3.4-4.8); ASPARTATE AMINOTRANSFERASE 23 U/L (10-37); BILIRUBIN,DIRECT 0.1 mg/dL (0.0-0.3); TOTAL BILIRUBIN 0.2 mg/dL (0.0-1.0); TOTAL PROTEIN, SERUM 5.9 g/dL (6.4-8.3)
[2023-02-25] MEDS ORDERED: HYDROcodone/ACETAMIN 5-325 MG TAB (NORCO/ VICODIN) PO ONE (02:00)
[2023-02-25] MEDS ORDERED: ONDA-8 TL (02:20)
[2023-02-25 02:49] VITALS: BP_SYST 113; PULSE 85; RESP 18; TEMP 97.9; O2SAT 100
== END 2023-02-25 02:49 | disposition home or self-care (01) ==
LOC: SED 21:51
DX: R55 Syncope and collapse (principal); R79.1 Abnormal coagulation profile; R19.7 Diarrhea, unspecified; R10.9 Unspecified abdominal pain; J45.909 Unspecified asthma, uncomplicated; E11.9 Type 2 diabetes mellitus without complications; K21.9 Gastro-esophageal reflux disease without esophagitis; Z88.0 Allergy status to penicillin; Z88.1 Allergy status to other antibiotic agents; Z88.6 Allergy status to analgesic agent; Z79.899 Other long term (current) drug therapy
CPT/HCPCS: 99285; 74176; 96374; 71045; 96361; 96375; 80076; 80048; 81001; 85025; 85610; 84484; 36415; 93005; 76376; 81025; 81000; 81015; J3490; J2405; J7030

== ENCOUNTER 2023-05-01 22:22 | Inpatient (IN) | payer OTHER, MEDICAID ==
[~2023-05-01] VITALS: Ht 160 cm; Wt 122.5 kg
[~2023-05-01 22:22] MED LIST changes: +ACET325T PO; +CEPH-548 PO; +DOXY100C5 PO; +PERC10 PO
[2023-05-01 22:25] VITALS: BP_SYST 113; PULSE 103; RESP 17; TEMP 97.3; O2SAT 97
[2023-05-01 23:30] LABS: BASOPHILS % (AUTO) 0.4 % (0.0-2.0); EOSINOPHILS % (AUTO) 0.2 % (0.0-4.0); HEMATOCRIT 29.8 % (36-48); HEMOGLOBIN 9.3 g/dL (12.0-16.0); LYMPHOCYTES % (AUTO) 22.4 % (20.5-51.5); MEAN CORPUSCULAR HEMOGLOBIN 22 pg (27-31); MEAN CORPUSCULAR HGB CONC 31 % (32-36); MEAN CORPUSCULAR VOLUME 69 fL (79.0-98.0); MONOCYTES # (AUTO) 0.9 K/uL (0.0-1.0); MONOCYTES % (AUTO) 10.6 % (1.7-9.3); NEUTROPHILS # (AUTO) 5.9 K/uL (1.8-7.7); NEUTROPHILS % (AUTO) 66.4 % (40.0-70.0); PLATELET COUNT (AUTO) 391 K/uL (130-430); RED BLOOD CELL COUNT(AUTO) 4.34 MIL/uL (4.2-6.2); RED CELL DISTRIBUTION WIDTH 24.8 % (9.0-15.0); WHITE BLOOD COUNT (AUTO) 8.9 K/uL (4.8-10.8)
[2023-05-02 00:05] LABS: ALANINE AMINOTRANSFERASE 31 U/L (12-78); ALBUMIN 2.2 g/dL (3.4-4.8); ANION GAP 6 (5-15); ASPARTATE AMINOTRANSFERASE 34 U/L (10-37); CALCIUM 7.3 mg/dL (8.4-11.0); CARBON DIOXIDE 25 mmol/L (23-29); CHLORIDE 110 mmol/L (98-107); CREATININE 1.12 mg/dL (0.55-1.30); GFR AFRICAN AMERICAN 73 mL/min (>90); GLUCOSE 83 mg/dL (74-106); POTASSIUM 3.9 mmol/L (3.5-5.1); SODIUM SERUM 141 mmol/L (136-145); TOTAL BILIRUBIN 0.2 mg/dL (0.0-1.0); TOTAL PROTEIN, SERUM 5.8 g/dL (6.4-8.3); UREA NITROGEN, BLOOD 14 mg/dL (8-21)
[2023-05-02 00:06] LABS: BILIRUBIN,DIRECT 0.1 mg/dL (0.0-0.3)
[2023-05-02 00:10] LABS: GFR NON AFRICAN-AMERICAN 60 mL/min (>90)
[2023-05-02] MEDS: MORPHINE 4 MG INJ. 4 MG/ML VIAL IVP ONE (00:27)
[2023-05-02] MEDS: NITROGLYCERIN 1 INCH (GM) OINT. TP ONE (00:33)
[2023-05-02 00:35] LABS: INR 4.3 (0.8-1.2); PROTHROMBIN TIME 41.4 SECS (9.5-12.5)
[2023-05-02 00:49] VITALS: BP_SYST 100; PULSE 79; RESP 18; TEMP 96.5; O2SAT 97
[2023-05-02] MEDS: FAMOTIDINE PF 20 MG/2 ML VIAL IVP ONE (01:51)
[2023-05-02] MEDS: NITROGLYCERIN 0.4 MG TAB.SUBL SL ONE (03:04)
[2023-05-02] MEDS: MORPHINE 4 MG INJ. 4 MG/ML VIAL IVP PRN (04:37)
[2023-05-02] MEDS ORDERED: WARF4TAB72 PO (06:22)
[2023-05-02] MEDS ORDERED: POTA-197 PO (06:23)
[2023-05-02] MEDS ORDERED: FER300L PO (06:23)
[2023-05-02] MEDS ORDERED: DIPH25CA83 PO (06:24)
[2023-05-02] MEDS ORDERED: DIPHENHYDRAMINE HCL 25 MG CAPSULE ONE (10:44)
[2023-05-02] MEDS: DIPHENHYDRAMINE HCL 25 MG CAPSULE PO PRN (13:47)
[2023-05-02] MEDS ORDERED: FUROSEMIDE 20 MG/2 ML VIAL ONE (13:52)
[2023-05-02] MEDS ORDERED: METOPROLOL TARTRATE 50 MG TABLET PO SCH (14:00)
[2023-05-02] MEDS ORDERED: NALOXONE HCL 0.4 MG/ML AMP (NARCAN) IVP PRN (14:00)
[2023-05-02] MEDS ORDERED: WARFARIN SODIUM 7.5 MG TABLET PO SCH (14:00)
[2023-05-02] MEDS ORDERED: HYOSCYAMINE SULFATE 0.125 MG TABLET PO SCH (14:00)
[2023-05-02] MEDS ORDERED: OXYCODONE/ACETAMINOPHEN *10*mg/325 mg TABLET PO PRN (14:00)
[2023-05-02] MEDS ORDERED: ONDANSETRON 4 MG ODT TAB TL PRN ×2 (14:00)
[2023-05-02] MEDS ORDERED: DIPHENHYDRAMINE HCL 25 MG CAPSULE PO PRN (14:00)
[2023-05-02] MEDS ORDERED: MORPHINE 4 MG INJ. 4 MG/ML VIAL ONE ×2 (15:00→20:35)
[2023-05-02] MEDS ORDERED: cephALEXin 500 MG CAPSULE PO SCH (17:00)
[2023-05-02] MEDS: HYDROXYCHLOROQUINE SULFATE 200 MG TABLET PO SCH (23:22)
[2023-05-02] MEDS: ZOLPIDEM TARTRATE 5 MG TABLET PO SCH (23:23)
[2023-05-02] MEDS: DOCUSATE SODIUM 100 MG CAPSULE PO SCH (23:23)
[2023-05-02] MEDS: CYCLOBENZAPRINE HCL 10 MG TABLET (FLEXERIL) PO SCH (23:23)
[2023-05-02] MEDS: METOCLOPRAMIDE HCL 10 MG TABLET PO SCH (23:23)
[2023-05-02] MEDS: azaTHIOprine 50 MG TABLET PO SCH (23:23)
[2023-05-02] MEDS: BACLOFEN 10 MG TABLET PO SCH (23:23)
[2023-05-02] MEDS: DOXYCYCLINE HYCLATE 100 MG CAPSULE PO SCH (23:23)
[2023-05-02] MEDS: FUROSEMIDE 40 MG TABLET PO SCH (23:24)
[2023-05-02 23:32] VITALS: BP_SYST 92; PULSE 89; RESP 20; TEMP 96.4; O2SAT 100
[2023-05-03 00:49] VITALS: BP_SYST 100; PULSE 79; RESP 18; TEMP 96.5; O2SAT 97
[2023-05-03 08:17] VITALS: BP_SYST 108; PULSE 105; RESP 16; TEMP 98.5; O2SAT 100
[2023-05-03] MEDS ORDERED: WARFARIN SODIUM 4 MG TABLET PO SCH (09:00)
[2023-05-03] MEDS: predniSONE 10 MG TABLET PO SCH (09:09)
[2023-05-03] MEDS: ASPIRIN 81 MG TABLET(ECOTRIN) PO SCH (09:09)
[2023-05-03] MEDS: PANTOPRAZOLE SODIUM 40 MG TAB PO SCH (09:09)
[2023-05-03] MEDS: FERROUS SULFATE 325 MG TABLET.DR PO SCH (09:12)
[2023-05-03] MEDS: POTASSIUM CHLORIDE 20 MEQ TABLET.ER PO SCH (09:12)
[2023-05-03] MEDS: SIMVASTATIN 10 MG TABLET PO SCH (09:12)
[2023-05-03 09:14] LABS: INR 2.4 (0.8-1.2); PROTHROMBIN TIME 24.1 SECS (9.5-12.5)
[2023-05-03 09:16] LABS: CALCIUM 8.2 mg/dL (8.4-11.0); CREATININE 1.08 mg/dL (0.55-1.30)
[2023-05-03 09:17] LABS: BASOPHILS # (AUTO) 0.1 K/uL (0.0-0.2); BASOPHILS % (AUTO) 0.7 % (0.0-2.0); EOSINOPHILS # (AUTO) 0.1 K/uL (0.0-0.4); HEMATOCRIT 29.7 % (36-48); HEMOGLOBIN 9.3 g/dL (12.0-16.0); LYMPHOCYTES # (AUTO) 1.9 K/uL (1.0-5.5); LYMPHOCYTES % (AUTO) 21.8 % (20.5-51.5); MEAN CORPUSCULAR HEMOGLOBIN 22 pg (27-31); MEAN CORPUSCULAR HGB CONC 31 % (32-36); MEAN CORPUSCULAR VOLUME 69 fL (79.0-98.0); MONOCYTES # (AUTO) 0.7 K/uL (0.0-1.0); MONOCYTES % (AUTO) 8.1 % (1.7-9.3); NEUTROPHILS # (AUTO) 5.8 K/uL (1.8-7.7); NEUTROPHILS % (AUTO) 68.4 % (40.0-70.0); PLATELET COUNT (AUTO) 378 K/uL (130-430); RED BLOOD CELL COUNT(AUTO) 4.34 MIL/uL (4.2-6.2); RED CELL DISTRIBUTION WIDTH 24.5 % (9.0-15.0); WHITE BLOOD COUNT (AUTO) 8.5 K/uL (4.8-10.8)
[2023-05-03 09:23] LABS: ALBUMIN 1.9 g/dL (3.4-4.8); TOTAL BILIRUBIN 0.2 mg/dL (0.0-1.0); TOTAL PROTEIN, SERUM 5.1 g/dL (6.4-8.3)
[2023-05-03 09:32] LABS: TOTAL IRON BIND. CAPACITY 166 ug/dL (250-450)
[2023-05-03] MEDS: TAMSULOSIN HCL 0.4 MG CAP PO ONE (10:30)
[2023-05-03 12:50] VITALS: BP_SYST 94; PULSE 120; RESP 16; TEMP 99; O2SAT 98
[2023-05-03] MEDS: HYDROcodone/ACETAMIN 5-325 MG TAB (NORCO/ VICODIN) PO PRN (13:41)
[2023-05-03] MEDS: SOD FERRIC GLUC COMPLEX/SUC 125 MG in NS 100 ML IV SCH (15:03)
[2023-05-03] MEDS: HYDROcodone/ACETAMIN 10-325 MG TAB PO PRN (16:28)
[2023-05-03 17:00] VITALS: BP_SYST 99; PULSE 100; RESP 16; TEMP 97.1; O2SAT 100
[2023-05-03 19:00] VITALS: BP_SYST 120; PULSE 76; RESP 22; TEMP 98.2; O2SAT 96
[2023-05-03] MEDS: WARFARIN SODIUM 4 MG TABLET PO SCH (20:38)
[2023-05-04 04:41] VITALS: BP_SYST 100; PULSE 75; RESP 16; TEMP 96; O2SAT 99
[2023-05-04 06:40] LABS: INR 2.1 (0.8-1.2); PROTHROMBIN TIME 20.8 SECS (9.5-12.5)
[2023-05-04 08:00] VITALS: BP_SYST 89; PULSE 69; RESP 18; TEMP 98.6; O2SAT 99
[2023-05-04 09:57] LABS: INR 2.2 (0.8-1.2); PROTHROMBIN TIME 22.1 SECS (9.5-12.5)
[2023-05-04] MEDS: ACETAMINOPHEN 325 MG TABLET PO PRN (11:00)
[2023-05-04] MEDS: TAMSULOSIN HCL 0.4 MG CAP PO SCH (11:01)
[2023-05-04 12:00] VITALS: BP_SYST 102; PULSE 72; RESP 20; TEMP 97.9; O2SAT 97
[2023-05-04 16:00] VITALS: BP_SYST 86; PULSE 95; RESP 18; TEMP 98; O2SAT 98
[2023-05-04] MEDS: WARFARIN SODIUM 6 MG TABLET PO SCH (18:46)
[2023-05-04 20:00] VITALS: BP_SYST 112; PULSE 96; RESP 20; TEMP 97.5; O2SAT 95
[2023-05-04 22:00] VITALS: O2SAT 95
[2023-05-05 01:00] VITALS: BP_SYST 112; PULSE 96; RESP 18; TEMP 97.9; O2SAT 97
[2023-05-05 05:48] LABS: BASOPHILS % (AUTO) 0.7 % (0.0-2.0); EOSINOPHILS % (AUTO) 0.7 % (0.0-4.0); LYMPHOCYTES # (AUTO) 1.9 K/uL (1.0-5.5); LYMPHOCYTES % (AUTO) 27.3 % (20.5-51.5); MEAN CORPUSCULAR HEMOGLOBIN 21 pg (27-31); MEAN CORPUSCULAR HGB CONC 31 % (32-36); MEAN CORPUSCULAR VOLUME 69 fL (79.0-98.0); MONOCYTES # (AUTO) 0.6 K/uL (0.0-1.0); MONOCYTES % (AUTO) 8.8 % (1.7-9.3); NEUTROPHILS # (AUTO) 4.3 K/uL (1.8-7.7); NEUTROPHILS % (AUTO) 62.5 % (40.0-70.0); PLATELET COUNT (AUTO) 354 K/uL (130-430); RED BLOOD CELL COUNT(AUTO) 4.23 MIL/uL (4.2-6.2); WHITE BLOOD COUNT (AUTO) 6.8 K/uL (4.8-10.8)
[2023-05-05 06:14] LABS: INR 2.3 (0.8-1.2); PROTHROMBIN TIME 23.4 SECS (9.5-12.5)
[2023-05-05 06:27] LABS: CALCIUM 8.1 mg/dL (8.4-11.0); CREATININE 0.99 mg/dL (0.55-1.30); POTASSIUM 3.8 mmol/L (3.5-5.1)
[2023-05-05 08:00] VITALS: BP_SYST 114; PULSE 80; RESP 18; TEMP 98; O2SAT 99
[2023-05-05 10:00] LABS: INR 2.5 (0.8-1.2)
[2023-05-05 10:32] VITALS: BP_SYST 114; PULSE 69; RESP 18; TEMP 98.4; O2SAT 98
[2023-05-05 12:00] VITALS: BP_SYST 116; PULSE 85; RESP 18; TEMP 97.9; O2SAT 99
[2023-05-05] MEDS: FLUCONAZOLE 100 MG TABLET (DIFLUCAN) PO ONE (13:03)
[2023-05-06] MEDS ORDERED: PHEN-726 PO (08:31)
== END 2023-05-05 15:30 | disposition home or self-care (01) | DRG 206 ==
LOC: SED 22:22 → STU 05-02 02:08 → SMU 05-04 05:38
PROVIDERS: ADMIT Family Medicine; ATTEND Family Medicine
DX: M94.0 Chondrocostal junction syndrome [Tietze] (principal); I50.32 Chronic diastolic (congestive) heart failure; Z68.42 Body mass index [BMI] 45.0-49.9, adult; E44.1 Mild protein-calorie malnutrition; E66.01 Morbid (severe) obesity due to excess calories; M32.9 Systemic lupus erythematosus, unspecified; G89.4 Chronic pain syndrome; F41.9 Anxiety disorder, unspecified; M79.7 Fibromyalgia; I11.0 Hypertensive heart disease with heart failure; D50.9 Iron deficiency anemia, unspecified; E16.2 Hypoglycemia, unspecified; J45.909 Unspecified asthma, uncomplicated; I25.10 Atherosclerotic heart disease of native coronary artery without angina pectoris; Z88.1 Allergy status to other antibiotic agents; Z95.2 Presence of prosthetic heart valve; Z98.84 Bariatric surgery status; Z88.0 Allergy status to penicillin; Z88.8 Allergy status to other drugs, medicaments and biological substances; Z79.899 Other long term (current) drug therapy
CPT/HCPCS: 36415; 71045; 80048; 80053; 80076; 82550; 82948; 83540; 83550; 83735; 83880; 84484; 85025; 85379; 85610; 85730; 93005; 99285; G0378; J1940; J2270; J2916; J3490; J7500; J7512; J8597; Q0163

== ENCOUNTER 2023-05-06 05:02 | Emergency (ER) | payer OTHER, MEDICAID ==
[~2023-05-06] VITALS: Ht 162.6 cm; Wt 117.0 kg
[~2023-05-06 05:02] MED LIST changes: +DIPH25CA83 PO; +FER300L PO; +POTA-197 PO; -ZOLP10TA2 PO
[2023-05-06 05:05] VITALS: BP_SYST 109; PULSE 108; RESP 18; TEMP 97.2; O2SAT 97
[2023-05-06 06:21] LABS: BASOPHILS # (AUTO) 0.1 K/uL (0.0-0.2); BASOPHILS % (AUTO) 0.5 % (0.0-2.0); EOSINOPHILS % (AUTO) 0.4 % (0.0-4.0); HEMATOCRIT 31.4 % (36-48); HEMOGLOBIN 9.9 g/dL (12.0-16.0); LYMPHOCYTES # (AUTO) 2.2 K/uL (1.0-5.5); LYMPHOCYTES % (AUTO) 22.3 % (20.5-51.5); MEAN CORPUSCULAR HEMOGLOBIN 22 pg (27-31); MEAN CORPUSCULAR HGB CONC 32 % (32-36); MEAN CORPUSCULAR VOLUME 68 fL (79.0-98.0); MONOCYTES % (AUTO) 9.7 % (1.7-9.3); NEUTROPHILS # (AUTO) 6.8 K/uL (1.8-7.7); NEUTROPHILS % (AUTO) 67.1 % (40.0-70.0); PLATELET COUNT (AUTO) 389 K/uL (130-430); RED BLOOD CELL COUNT(AUTO) 4.58 MIL/uL (4.2-6.2); RED CELL DISTRIBUTION WIDTH 23.6 % (9.0-15.0); WHITE BLOOD COUNT (AUTO) 10.1 K/uL (4.8-10.8)
[2023-05-06 06:47] LABS: SERUM HCG (QUALITATIVE) NEGATIVE (NEGATIVE)
[2023-05-06 06:49] LABS: CALCIUM 8.3 mg/dL (8.4-11.0); CREATININE 1.45 mg/dL (0.55-1.30); POTASSIUM 3.4 mmol/L (3.5-5.1)
[2023-05-06 07:43] LABS: ANISOCYTOSIS 2+; HYPOCHROMASIA 2+; OVALOCYTES FEW
[2023-05-06 07:55] LABS: BILIRUBIN,URINE NEGATIVE (NEGATIVE); BLOOD, URINE 3+ (NEGATIVE); COLOR,URINE YELLOW (YELLOW); GLUCOSE,URINE NEGATIVE (NEGATIVE); KETONES,URINE TRACE (NEGATIVE); LEUKOCYTE ESTERASE ,URINE TRACE (NEGATIVE); NITRITE, URINE NEGATIVE (NEGATIVE); PROTEIN URINE TRACE (NEGATIVE); UROBILINOGEN,URINE 0.2 (0.2-1.0)
[2023-05-06 08:03] LABS: CLARITY/URINE HAZY (CLEAR)
[2023-05-06] MEDS ORDERED: BACITRACIN 1 GM OINT TP ONE (08:09)
[2023-05-06 08:19] LABS: BACTERIA,URINE FEW /HPF (None Seen); MUCUS,URINE 1+ /LPF (None Seen); WBC,URINE 0-3 /HPF (0-3)
[2023-05-06 08:20] VITALS: BP_SYST 109; PULSE 108; RESP 18; TEMP 97.2; O2SAT 97
[2023-05-06] MEDS ORDERED: PHEN-726 PO (08:31)
== END 2023-05-06 09:05 | disposition home or self-care (01) ==
LOC: SED 05:02
DX: R10.30 Lower abdominal pain, unspecified (principal); R33.9 Retention of urine, unspecified; J45.909 Unspecified asthma, uncomplicated; E11.9 Type 2 diabetes mellitus without complications; K21.9 Gastro-esophageal reflux disease without esophagitis; Z88.0 Allergy status to penicillin; Z88.1 Allergy status to other antibiotic agents; Z88.5 Allergy status to narcotic agent; Z88.6 Allergy status to analgesic agent; Z79.899 Other long term (current) drug therapy
CPT/HCPCS: 36415; 76376; 80048; 81000; 81001; 81015; 84703; 85025; 99284

== ENCOUNTER 2023-06-01 23:18 | Emergency (ER) | payer OTHER, MEDICAID ==
[~2023-06-01 23:18] MED LIST changes: +PHEN-726 PO
== END 2023-06-01 23:30 | disposition left against medical advice (07) ==
LOC: SED 23:18
DX: R10.9 Unspecified abdominal pain (principal); R11.0 Nausea; J45.909 Unspecified asthma, uncomplicated; E11.9 Type 2 diabetes mellitus without complications; K21.9 Gastro-esophageal reflux disease without esophagitis; Z88.0 Allergy status to penicillin; Z88.1 Allergy status to other antibiotic agents; Z88.6 Allergy status to analgesic agent; Z88.5 Allergy status to narcotic agent; Z53.21 Procedure and treatment not carried out due to patient leaving prior to being seen by health care provider
CPT/HCPCS: 99281

== ENCOUNTER 2023-07-31 00:34 | Emergency (ER) | payer OTHER, MEDICAID ==
[~2023-07-31] VITALS: Ht 162.6 cm; Wt 107.5 kg
[2023-07-31 00:47] VITALS: BP_SYST 118; PULSE 96; RESP 20; TEMP 97.6; O2SAT 96
[2023-07-31 01:39] LABS: BILIRUBIN,URINE NEGATIVE (NEGATIVE); BLOOD, URINE 3+ (NEGATIVE); CLARITY/URINE SL CLOUDY (CLEAR); COLOR,URINE YELLOW (YELLOW); GLUCOSE,URINE NEGATIVE (NEGATIVE); KETONES,URINE NEGATIVE (NEGATIVE); NITRITE, URINE NEGATIVE (NEGATIVE); PH,URINE 6.5 (5.0-8.0); PROTEIN URINE 1+ (NEGATIVE); UROBILINOGEN,URINE 0.2 (0.2-1.0)
[2023-07-31 01:56] LABS: LEUKOCYTE ESTERASE ,URINE 1+ (NEGATIVE); RBC,URINE >100 /HPF (0-3)
[2023-07-31 01:57] LABS: BACTERIA,URINE FEW /HPF (None Seen)
[2023-07-31 02:43] LABS: BASOPHILS % (AUTO) 0.4 % (0.0-2.0); EOSINOPHILS # (AUTO) 0.1 K/uL (0.0-0.4); EOSINOPHILS % (AUTO) 0.9 % (0.0-4.0); HEMATOCRIT 32.6 % (36-48); HEMOGLOBIN 10.5 g/dL (12.0-16.0); LYMPHOCYTES # (AUTO) 1.9 K/uL (1.0-5.5); LYMPHOCYTES % (AUTO) 24.8 % (20.5-51.5); MEAN CORPUSCULAR HEMOGLOBIN 23 pg (27-31); MEAN CORPUSCULAR HGB CONC 32 % (32-36); MEAN CORPUSCULAR VOLUME 70 fL (79.0-98.0); MONOCYTES # (AUTO) 0.8 K/uL (0.0-1.0); MONOCYTES % (AUTO) 9.7 % (1.7-9.3); NEUTROPHILS % (AUTO) 64.2 % (40.0-70.0); PLATELET COUNT (AUTO) 366 K/uL (130-430); RED BLOOD CELL COUNT(AUTO) 4.67 MIL/uL (4.2-6.2); RED CELL DISTRIBUTION WIDTH 19.2 % (9.0-15.0); WHITE BLOOD COUNT (AUTO) 7.7 K/uL (4.8-10.8)
[2023-07-31 03:10] LABS: INR 7.5 (0.8-1.2); PROTHROMBIN TIME 70.4 SECS (9.5-12.5)
[2023-07-31 03:28] LABS: ALBUMIN 3.2 g/dL (3.4-4.8); BILIRUBIN,DIRECT 0.1 mg/dL (0.0-0.3); CALCIUM 7.7 mg/dL (8.4-11.0); CREATININE 1.3 mg/dL (0.55-1.30); TOTAL BILIRUBIN 0.2 mg/dL (0.0-1.0); TOTAL PROTEIN, SERUM 6.7 g/dL (6.4-8.3)
[2023-07-31] MEDS ORDERED: CEPH-548 PO (05:10)
[2023-07-31] MEDS ORDERED: TAMS-11 PO (05:10)
[2023-07-31 05:39] VITALS: BP_SYST 105; PULSE 85; RESP 20; TEMP 97.8; O2SAT 96
== END 2023-07-31 05:10 | disposition home or self-care (01) ==
LOC: SED 00:34
DX: N30.01 Acute cystitis with hematuria (principal); N20.0 Calculus of kidney; N36.8 Other specified disorders of urethra; Z88.0 Allergy status to penicillin; Z88.1 Allergy status to other antibiotic agents; Z88.5 Allergy status to narcotic agent; Z88.6 Allergy status to analgesic agent; Z79.899 Other long term (current) drug therapy
CPT/HCPCS: 36415; 80048; 80076; 81000; 81001; 81015; 81025; 83690; 85025; 85610; 87086; 99284; 99285

== ENCOUNTER 2023-08-10 | Emergency (ER) | payer OTHER, MEDICAID ==
[~2023-08-10] VITALS: Ht 162.6 cm; Wt 109.8 kg
[~2023-08-10] MED LIST changes: +TAMS-11 PO
[2023-08-10 00:10] VITALS: BP_SYST 104; PULSE 100; RESP 20; TEMP 97.3; O2SAT 96
[2023-08-10 01:20] LABS: BILIRUBIN,URINE NEGATIVE (NEGATIVE); BLOOD, URINE 3+ (NEGATIVE); COLOR,URINE YELLOW (YELLOW); GLUCOSE,URINE TRACE (NEGATIVE); KETONES,URINE NEGATIVE (NEGATIVE); LEUKOCYTE ESTERASE ,URINE TRACE (NEGATIVE); PROTEIN URINE 1+ (NEGATIVE)
[2023-08-10 01:39] LABS: NITRITE, URINE NEGATIVE (NEGATIVE)
[2023-08-10 01:40] LABS: CLARITY/URINE HAZY (CLEAR); RBC,URINE 20-50 /HPF (0-3)
[2023-08-10 01:41] LABS: BACTERIA,URINE FEW /HPF (None Seen)
[2023-08-10 01:46] LABS: BASOPHILS # (AUTO) 0.2 K/uL (0.0-0.2); BASOPHILS % (AUTO) 3.1 % (0.0-2.0); EOSINOPHILS # (AUTO) 0.1 K/uL (0.0-0.4); EOSINOPHILS % (AUTO) 0.8 % (0.0-4.0); HEMATOCRIT 30.6 % (36-48); HEMOGLOBIN 9.9 g/dL (12.0-16.0); LYMPHOCYTES # (AUTO) 1.1 K/uL (1.0-5.5); MEAN CORPUSCULAR HEMOGLOBIN 23 pg (27-31); MEAN CORPUSCULAR HGB CONC 32 % (32-36); MEAN CORPUSCULAR VOLUME 72 fL (79.0-98.0); MONOCYTES # (AUTO) 0.7 K/uL (0.0-1.0); MONOCYTES % (AUTO) 10.2 % (1.7-9.3); NEUTROPHILS # (AUTO) 4.6 K/uL (1.8-7.7); NEUTROPHILS % (AUTO) 69.9 % (40.0-70.0); PLATELET COUNT (AUTO) 287 K/uL (130-430); RED BLOOD CELL COUNT(AUTO) 4.28 MIL/uL (4.2-6.2); RED CELL DISTRIBUTION WIDTH 19.3 % (9.0-15.0); WHITE BLOOD COUNT (AUTO) 6.6 K/uL (4.8-10.8)
[2023-08-10 02:01] LABS: INR 1.8 (0.8-1.2); PROTHROMBIN TIME 18.5 SECS (9.5-12.5)
[2023-08-10 02:02] LABS: CALCIUM 7.7 mg/dL (8.4-11.0); CREATININE 1.23 mg/dL (0.55-1.30); POTASSIUM 3.8 mmol/L (3.5-5.1); TOTAL BILIRUBIN 0.3 mg/dL (0.0-1.0); TOTAL PROTEIN, SERUM 6.4 g/dL (6.4-8.3)
[2023-08-10 02:48] VITALS: BP_SYST 91; PULSE 71; RESP 20; TEMP 97.3; O2SAT 99
== END 2023-08-10 02:48 | disposition home or self-care (01) ==
LOC: SED
DX: S09.90XA Unspecified injury of head, initial encounter (principal); R31.9 Hematuria, unspecified; J45.909 Unspecified asthma, uncomplicated; E11.9 Type 2 diabetes mellitus without complications; K21.9 Gastro-esophageal reflux disease without esophagitis; Z88.0 Allergy status to penicillin; Z88.1 Allergy status to other antibiotic agents; Z88.5 Allergy status to narcotic agent; Z88.6 Allergy status to analgesic agent; W01.0XXA Fall on same level from slipping, tripping and stumbling without subsequent striking against object, initial encounter; Y93.89 Activity, other specified; Y92.89 Other specified places as the place of occurrence of the external cause; Y99.8 Other external cause status
CPT/HCPCS: 36415; 70450-TC; 80053; 81000; 81001; 81015; 81025; 85025; 85610; 85730; 87086; 99284

== ENCOUNTER 2023-10-06 23:16 | Emergency (ER) | payer OTHER, MEDICAID ==
[~2023-10-06] VITALS: Ht 162.6 cm; Wt 106.6 kg
[2023-10-06 23:22] VITALS: BP_SYST 137; PULSE 87; RESP 16; TEMP 96.9; O2SAT 100
[2023-10-07 01:45] LABS: COLOR,URINE YELLOW (YELLOW)
[2023-10-07 01:46] LABS: BILIRUBIN,URINE NEGATIVE (NEGATIVE); BLOOD, URINE 2+ (NEGATIVE); CLARITY/URINE CLEAR (CLEAR); GLUCOSE,URINE NEGATIVE (NEGATIVE); KETONES,URINE NEGATIVE (NEGATIVE); LEUKOCYTE ESTERASE ,URINE 1+ (NEGATIVE); NITRITE, URINE NEGATIVE (NEGATIVE); PROTEIN URINE NEGATIVE (NEGATIVE); UROBILINOGEN,URINE 0.2 (0.2-1.0)
[2023-10-07 01:47] LABS: BACTERIA,URINE FEW /HPF (None Seen)
[2023-10-07] MEDS: cefTRIAXone 1 GM in LIDOCAINE 1%, 20 ML MDV 2.1 ML IM ONE ×2 (02:19→02:20)
[2023-10-07] MEDS ORDERED: NITR-85 PO (02:39)
[2023-10-07] MEDS ORDERED: PHEN-726 PO (02:40)
[2023-10-07 02:44] VITALS: BP_SYST 138; PULSE 98; RESP 18; TEMP 98.6; O2SAT 97
== END 2023-10-07 02:44 | disposition home or self-care (01) ==
LOC: SED 23:16
DX: N39.0 Urinary tract infection, site not specified (principal); R10.30 Lower abdominal pain, unspecified; J45.909 Unspecified asthma, uncomplicated; E11.9 Type 2 diabetes mellitus without complications; K21.9 Gastro-esophageal reflux disease without esophagitis; M79.7 Fibromyalgia; G89.29 Other chronic pain; Z86.711 Personal history of pulmonary embolism; Z98.890 Other specified postprocedural states; Z88.1 Allergy status to other antibiotic agents; Z88.6 Allergy status to analgesic agent; Z88.5 Allergy status to narcotic agent; Z88.0 Allergy status to penicillin; Z79.899 Other long term (current) drug therapy; Z79.2 Long term (current) use of antibiotics
CPT/HCPCS: 99284; 81001; 87086; 81025; 96372; J0696; 81000; 81015; J2001

== ENCOUNTER 2023-11-26 00:39 | Emergency (ER) | payer OTHER, MEDICAID ==
[~2023-11-26] VITALS: Ht 160 cm; Wt 101.2 kg
[~2023-11-26 00:39] MED LIST changes: +NITR-85 PO
[2023-11-26 00:49] VITALS: BP_SYST 11; PULSE 84; RESP 18; TEMP 96.8; O2SAT 97
[2023-11-26 02:15] LABS: BASOPHILS # (AUTO) 0.1 K/uL (0.0-0.2); BASOPHILS % (AUTO) 0.6 % (0.0-2.0); EOSINOPHILS # (AUTO) 0.1 K/uL (0.0-0.4); EOSINOPHILS % (AUTO) 1.1 % (0.0-4.0); HEMATOCRIT 29.4 % (36-48); HEMOGLOBIN 9.6 g/dL (12.0-16.0); LYMPHOCYTES # (AUTO) 1.8 K/uL (1.0-5.5); MEAN CORPUSCULAR HEMOGLOBIN 22 pg (27-31); MEAN CORPUSCULAR HGB CONC 33 % (32-36); MEAN CORPUSCULAR VOLUME 69 fL (79.0-98.0); MONOCYTES # (AUTO) 0.7 K/uL (0.0-1.0); MONOCYTES % (AUTO) 7.9 % (1.7-9.3); NEUTROPHILS # (AUTO) 6.6 K/uL (1.8-7.7); NEUTROPHILS % (AUTO) 71.4 % (40.0-70.0); PLATELET COUNT (AUTO) 395 K/uL (130-430); RED BLOOD CELL COUNT(AUTO) 4.29 MIL/uL (4.2-6.2); WHITE BLOOD COUNT (AUTO) 9.3 K/uL (4.8-10.8)
[2023-11-26 02:19] LABS: INR 3.1 (0.8-1.2); PROTHROMBIN TIME 30.8 SECS (9.5-12.5)
[2023-11-26 02:27] LABS: CALCIUM 8.2 mg/dL (8.4-11.0); CREATININE 1.02 mg/dL (0.55-1.30)
[2023-11-26 02:29] LABS: POTASSIUM 2.9 mmol/L (3.5-5.1)
[2023-11-26] MEDS: POTASSIUM CHLORIDE 20 MEQ/PKT PACKET PO ONE (02:39)
[2023-11-26] MEDS: MORPHINE 2 MG/ML INJ. SYRINGE IM ONE (03:23)
[2023-11-26 03:47] VITALS: BP_SYST 98; PULSE 83; RESP 18; TEMP 97.5; O2SAT 100
== END 2023-11-26 03:48 | disposition home or self-care (01) ==
LOC: SED 00:39
DX: E87.6 Hypokalemia (principal); R51.9 Headache, unspecified; R79.89 Other specified abnormal findings of blood chemistry; J45.909 Unspecified asthma, uncomplicated; K21.9 Gastro-esophageal reflux disease without esophagitis; E11.9 Type 2 diabetes mellitus without complications; M79.7 Fibromyalgia; Z86.711 Personal history of pulmonary embolism; Z88.0 Allergy status to penicillin; Z88.1 Allergy status to other antibiotic agents; Z88.5 Allergy status to narcotic agent; Z88.6 Allergy status to analgesic agent; Z79.899 Other long term (current) drug therapy; Z79.2 Long term (current) use of antibiotics; W18.39XA Other fall on same level, initial encounter; Y93.89 Activity, other specified; Y92.89 Other specified places as the place of occurrence of the external cause; Y99.8 Other external cause status
CPT/HCPCS: 99285; 96374; 70450; 80048; 85025; 85610; 85730; 36415; 81025; J2270

== ENCOUNTER 2023-12-23 21:07 | Inpatient (IN) | payer OTHER, MEDICAID ==
[~2023-12-23] VITALS: Ht 162.6 cm; Wt 91.4 kg
[2023-12-23 21:15] VITALS: BP_SYST 104; PULSE 99; RESP 20; TEMP 98; O2SAT 98
[2023-12-23 22:04] LABS: BASOPHILS # (AUTO) 0.1 K/uL (0.0-0.2); BASOPHILS % (AUTO) 0.7 % (0.0-2.0); EOSINOPHILS % (AUTO) 0.1 % (0.0-4.0); HEMATOCRIT 25.6 % (36-48); HEMOGLOBIN 8.2 g/dL (12.0-16.0); LYMPHOCYTES # (AUTO) 1.1 K/uL (1.0-5.5); LYMPHOCYTES % (AUTO) 14.9 % (20.5-51.5); MEAN CORPUSCULAR HEMOGLOBIN 21 pg (27-31); MEAN CORPUSCULAR HGB CONC 32 % (32-36); MEAN CORPUSCULAR VOLUME 66 fL (79.0-98.0); MONOCYTES # (AUTO) 0.5 K/uL (0.0-1.0); MONOCYTES % (AUTO) 6.7 % (1.7-9.3); NEUTROPHILS # (AUTO) 5.5 K/uL (1.8-7.7); NEUTROPHILS % (AUTO) 77.6 % (40.0-70.0); PLATELET COUNT (AUTO) 389 K/uL (130-430); RED BLOOD CELL COUNT(AUTO) 3.88 MIL/uL (4.2-6.2); RED CELL DISTRIBUTION WIDTH 19.4 % (9.0-15.0); WHITE BLOOD COUNT (AUTO) 7.1 K/uL (4.8-10.8)
[2023-12-23 22:16] LABS: ALBUMIN 3.2 g/dL (3.4-4.8); BILIRUBIN,DIRECT 0.1 mg/dL (0.0-0.3); CALCIUM 8.4 mg/dL (8.4-11.0); CREATININE 1.15 mg/dL (0.55-1.30); POTASSIUM 3.7 mmol/L (3.5-5.1); TOTAL BILIRUBIN 0.4 mg/dL (0.0-1.0); TOTAL PROTEIN, SERUM 6.4 g/dL (6.4-8.3)
[2023-12-23 22:24] LABS: ANISOCYTOSIS 1+; OVALOCYTES MODERATE
[2023-12-23 22:34] LABS: INR 5.9 (0.8-1.2); PROTHROMBIN TIME 57.1 SECS (9.5-12.5)
[2023-12-23 23:02] LABS: BILIRUBIN,URINE NEGATIVE (NEGATIVE); BLOOD, URINE 3+ (NEGATIVE); CLARITY/URINE CLEAR (CLEAR); COLOR,URINE YELLOW (YELLOW); GLUCOSE,URINE NEGATIVE (NEGATIVE); KETONES,URINE TRACE (NEGATIVE); LEUKOCYTE ESTERASE ,URINE 2+ (NEGATIVE); NITRITE, URINE NEGATIVE (NEGATIVE); PROTEIN URINE 1+ (NEGATIVE); UROBILINOGEN,URINE 0.2 (0.2-1.0)
[2023-12-24 00:12] LABS: BACTERIA,URINE MANY /HPF (None Seen)
[2023-12-24 01:22] LABS: HCG,QUAL RESULT NEGATIVE (NEGATIVE)
[2023-12-24 03:16] LABS: BASOPHILS # (AUTO) 0.1 K/uL (0.0-0.2); BASOPHILS % (AUTO) 1.1 % (0.0-2.0); EOSINOPHILS % (AUTO) 0.4 % (0.0-4.0); HEMATOCRIT 23.6 % (36-48); HEMOGLOBIN 7.3 g/dL (12.0-16.0); LYMPHOCYTES # (AUTO) 1.5 K/uL (1.0-5.5); MEAN CORPUSCULAR HEMOGLOBIN 21 pg (27-31); MEAN CORPUSCULAR HGB CONC 31 % (32-36); MEAN CORPUSCULAR VOLUME 67 fL (79.0-98.0); MONOCYTES # (AUTO) 0.6 K/uL (0.0-1.0); MONOCYTES % (AUTO) 9.2 % (1.7-9.3); NEUTROPHILS % (AUTO) 65.3 % (40.0-70.0); PLATELET COUNT (AUTO) 311 K/uL (130-430); RED BLOOD CELL COUNT(AUTO) 3.54 MIL/uL (4.2-6.2); RED CELL DISTRIBUTION WIDTH 19.1 % (9.0-15.0); WHITE BLOOD COUNT (AUTO) 6.2 K/uL (4.8-10.8)
[2023-12-24 03:33] LABS: PROTHROMBIN TIME 49.5 SECS (9.5-12.5)
[2023-12-24] MEDS ORDERED: NALOXONE HCL 0.4 MG/ML AMP (NARCAN) IVP PRN (08:30)
[2023-12-24 09:00] VITALS: O2SAT 96
[2023-12-24] MEDS ORDERED: PHYTONADIONE Non-Formulary 5 MG TABLET PO ONE (09:00)
[2023-12-24] MEDS ORDERED: NON-FORMULARY MEDICATION (Alprazolam 2 MG) PO SCH (09:00)
[2023-12-24] MEDS ORDERED: NON-FORMULARY MEDICATION (Gabapentin 1 TAB) PO SCH (09:00)
[2023-12-24 09:51] VITALS: BP_SYST 96; PULSE 67; RESP 18; TEMP 97
[2023-12-24] MEDS ORDERED: PHYTONADIONE (Vitamin K) Oral Solution PO ONE ×2 (11:00→18:00)
[2023-12-24] MEDS ORDERED: PHYTONADIONE 10 MG/ML AMP PO ONE (11:00)
[2023-12-24 11:05] LABS: BASOPHILS % (AUTO) 0.9 % (0.0-2.0); EOSINOPHILS # (AUTO) 0.1 K/uL (0.0-0.4); EOSINOPHILS % (AUTO) 1.4 % (0.0-4.0); HEMATOCRIT 23.2 % (36-48); HEMOGLOBIN 7.1 g/dL (12.0-16.0); LYMPHOCYTES % (AUTO) 18.6 % (20.5-51.5); MEAN CORPUSCULAR HEMOGLOBIN 20 pg (27-31); MEAN CORPUSCULAR HGB CONC 31 % (32-36); MEAN CORPUSCULAR VOLUME 67 fL (79.0-98.0); MONOCYTES # (AUTO) 0.5 K/uL (0.0-1.0); MONOCYTES % (AUTO) 9.5 % (1.7-9.3); NEUTROPHILS # (AUTO) 3.9 K/uL (1.8-7.7); NEUTROPHILS % (AUTO) 69.6 % (40.0-70.0); PLATELET COUNT (AUTO) 311 K/uL (130-430); RED BLOOD CELL COUNT(AUTO) 3.47 MIL/uL (4.2-6.2); WHITE BLOOD COUNT (AUTO) 5.6 K/uL (4.8-10.8)
[2023-12-24 11:10] LABS: RED CELL DISTRIBUTION WIDTH 19.2 % (9.0-15.0)
[2023-12-24] MEDS: NITROFURANTOIN MONOHYD/M-CRYST 100 MG CAPSULE (MacroBID) PO SCH (11:11)
[2023-12-24] MEDS: predniSONE 10 MG TABLET PO ONE (11:11)
[2023-12-24] MEDS: HYDROXYCHLOROQUINE SULFATE 200 MG TABLET PO ONE (11:11)
[2023-12-24] MEDS: azaTHIOprine 50 MG TABLET PO ONE (11:13)
[2023-12-24] MEDS: FUROSEMIDE 40 MG TABLET PO ONE (11:16)
[2023-12-24 12:00] VITALS: BP_SYST 98; PULSE 98; RESP 18; TEMP 98.2; O2SAT 98
[2023-12-24] MEDS: HYDROcodone/ACETAMIN 10-325 MG TAB PO PRN (12:41)
[2023-12-24] MEDS: ALPRAZolam 0.25 MG TABLET PO SCH (15:28)
[2023-12-24 16:10] VITALS: BP_SYST 105; PULSE 86; RESP 16; TEMP 97.7; O2SAT 100
[2023-12-24 17:08] LABS: BILIRUBIN,URINE NEGATIVE (NEGATIVE); BLOOD, URINE 2+ (NEGATIVE); CLARITY/URINE CLEAR (CLEAR); COLOR,URINE YELLOW (YELLOW); GLUCOSE,URINE NEGATIVE (NEGATIVE); KETONES,URINE NEGATIVE (NEGATIVE); LEUKOCYTE ESTERASE ,URINE NEGATIVE (NEGATIVE); NITRITE, URINE NEGATIVE (NEGATIVE); PH,URINE 6.5 (5.0-8.0); PROTEIN URINE NEGATIVE (NEGATIVE); UROBILINOGEN,URINE 0.2 (0.2-1.0)
[2023-12-24 17:36] LABS: BACTERIA,URINE FEW /HPF (None Seen); WBC,URINE 0-3 /HPF (0-3)
[2023-12-24 17:37] LABS: MUCUS,URINE None Seen /LPF (None Seen)
[2023-12-24 19:00] VITALS: BP_SYST 98; PULSE 81; RESP 16; TEMP 98.6; O2SAT 100
[2023-12-24 20:00] VITALS: BP_SYST 98; PULSE 81; RESP 16; TEMP 98.6; O2SAT 100
[2023-12-24] MEDS: CYCLOBENZAPRINE HCL 10 MG TABLET (FLEXERIL) PO SCH (20:49)
[2023-12-24] MEDS: DOCUSATE SODIUM 100 MG CAPSULE PO SCH (20:49)
[2023-12-24] MEDS: BACLOFEN 10 MG TABLET PO SCH (20:49)
[2023-12-24] MEDS: azaTHIOprine 50 MG TABLET PO SCH (20:50)
[2023-12-24] MEDS: HYDROXYCHLOROQUINE SULFATE 200 MG TABLET PO SCH (20:52)
[2023-12-24] MEDS: GABAPENTIN 300 MG CAPSULE PO SCH (20:59)
[2023-12-25] VITALS: BP_SYST 96; PULSE 78; RESP 16; TEMP 98.2; O2SAT 98
[2023-12-25 05:59] LABS: BASOPHILS % (AUTO) 0.7 % (0.0-2.0); EOSINOPHILS % (AUTO) 0.8 % (0.0-4.0); HEMATOCRIT 23.9 % (36-48); HEMOGLOBIN 7.4 g/dL (12.0-16.0); LYMPHOCYTES # (AUTO) 1.4 K/uL (1.0-5.5); LYMPHOCYTES % (AUTO) 24.7 % (20.5-51.5); MEAN CORPUSCULAR HEMOGLOBIN 20 pg (27-31); MEAN CORPUSCULAR HGB CONC 31 % (32-36); MEAN CORPUSCULAR VOLUME 66 fL (79.0-98.0); MONOCYTES # (AUTO) 0.5 K/uL (0.0-1.0); MONOCYTES % (AUTO) 8.3 % (1.7-9.3); NEUTROPHILS # (AUTO) 3.8 K/uL (1.8-7.7); NEUTROPHILS % (AUTO) 65.5 % (40.0-70.0); PLATELET COUNT (AUTO) 336 K/uL (130-430); RED BLOOD CELL COUNT(AUTO) 3.62 MIL/uL (4.2-6.2); RETICULOCYTE COUNT 2.7 % (0.5-1.5); WHITE BLOOD COUNT (AUTO) 5.8 K/uL (4.8-10.8)
[2023-12-25 06:06] LABS: PROTHROMBIN TIME 21.1 SECS (9.5-12.5)
[2023-12-25 06:10] LABS: TOTAL IRON BIND. CAPACITY 246 ug/dL (250-450)
[2023-12-25 06:14] LABS: ALBUMIN 2.7 g/dL (3.4-4.8); CALCIUM 8.1 mg/dL (8.4-11.0); CREATININE 0.71 mg/dL (0.55-1.30); POTASSIUM 3.5 mmol/L (3.5-5.1); TOTAL BILIRUBIN 0.5 mg/dL (0.0-1.0); TOTAL PROTEIN, SERUM 5.7 g/dL (6.4-8.3)
[2023-12-25 08:05] VITALS: O2SAT 99
[2023-12-25 08:05] LABS: RED CELL DISTRIBUTION WIDTH 18.9 % (9.0-15.0)
[2023-12-25 08:20] VITALS: BP_SYST 105; PULSE 80; RESP 15; TEMP 97.8; O2SAT 99
[2023-12-25] MEDS: LINACLOTIDE 145 MCG PO SCH (09:00)
[2023-12-25] MEDS: predniSONE 10 MG TABLET PO SCH (09:37)
[2023-12-25] MEDS: PANTOPRAZOLE SODIUM 40 MG TAB PO SCH (09:41)
[2023-12-25] MEDS: FUROSEMIDE 40 MG TABLET PO SCH (09:42)
[2023-12-25] MEDS: SOD FERRIC GLUC COMPLEX/SUC 125 MG in NS 100 ML IV SCH (12:53)
[2023-12-25 16:01] VITALS: BP_SYST 105; PULSE 98; RESP 16; TEMP 97.8; O2SAT 100
[2023-12-25] MEDS: WARFARIN SODIUM 5 MG TABLET PO SCH (18:10)
[2023-12-25 18:57] VITALS: BP_SYST 104; PULSE 100; RESP 15; TEMP 97.8; O2SAT 100
[2023-12-25 20:00] VITALS: BP_SYST 105; PULSE 101; RESP 18; TEMP 97.8; O2SAT 100
[2023-12-26] VITALS: BP_SYST 98; PULSE 97; RESP 18; TEMP 97.6; O2SAT 100
[2023-12-26 07:31] LABS: BASOPHILS % (AUTO) 0.7 % (0.0-2.0); EOSINOPHILS # (AUTO) 0.1 K/uL (0.0-0.4); EOSINOPHILS % (AUTO) 1.1 % (0.0-4.0); HEMATOCRIT 26.4 % (36-48); HEMOGLOBIN 8.1 g/dL (12.0-16.0); LYMPHOCYTES # (AUTO) 1.9 K/uL (1.0-5.5); LYMPHOCYTES % (AUTO) 26.1 % (20.5-51.5); MEAN CORPUSCULAR HEMOGLOBIN 21 pg (27-31); MEAN CORPUSCULAR HGB CONC 31 % (32-36); MEAN CORPUSCULAR VOLUME 67 fL (79.0-98.0); MONOCYTES # (AUTO) 0.6 K/uL (0.0-1.0); MONOCYTES % (AUTO) 8.1 % (1.7-9.3); NEUTROPHILS # (AUTO) 4.8 K/uL (1.8-7.7); PLATELET COUNT (AUTO) 382 K/uL (130-430); RED BLOOD CELL COUNT(AUTO) 3.95 MIL/uL (4.2-6.2); RED CELL DISTRIBUTION WIDTH 19.2 % (9.0-15.0); WHITE BLOOD COUNT (AUTO) 7.4 K/uL (4.8-10.8)
[2023-12-26 07:43] LABS: INR 1.5 (0.8-1.2); PROTHROMBIN TIME 15.3 SECS (9.5-12.5)
[2023-12-26 07:49] LABS: CALCIUM 8.2 mg/dL (8.4-11.0); CREATININE 0.86 mg/dL (0.55-1.30); POTASSIUM 3.3 mmol/L (3.5-5.1)
[2023-12-26 08:00] VITALS: BP_SYST 93; PULSE 83; RESP 16; TEMP 97.7; O2SAT 100; O2SAT 98
[2023-12-26] MEDS: POTASSIUM CHLORIDE 20 MEQ TABLET.ER PO ONE (10:51)
[2023-12-26] MEDS: FOLIC ACID 1 MG TABLET PO SCH (10:52)
[2023-12-26 12:00] VITALS: BP_SYST 91; PULSE 98; RESP 18; TEMP 97.1; O2SAT 100
[2023-12-26 16:00] VITALS: BP_SYST 98; PULSE 103; RESP 18; TEMP 98.1; O2SAT 99
[2023-12-26] MEDS: WARFARIN SODIUM 7.5 MG TABLET PO SCH (19:00)
[2023-12-26 20:00] VITALS: BP_SYST 104; PULSE 100; RESP 18; TEMP 97.1; O2SAT 98
[2023-12-27] VITALS: BP_SYST 108; PULSE 101; RESP 18; TEMP 97.6; O2SAT 97
[2023-12-27 07:17] LABS: BASOPHILS % (AUTO) 0.4 % (0.0-2.0); EOSINOPHILS # (AUTO) 0.1 K/uL (0.0-0.4); EOSINOPHILS % (AUTO) 1.1 % (0.0-4.0); HEMATOCRIT 28.7 % (36-48); HEMOGLOBIN 8.7 g/dL (12.0-16.0); LYMPHOCYTES # (AUTO) 2.2 K/uL (1.0-5.5); LYMPHOCYTES % (AUTO) 22.1 % (20.5-51.5); MEAN CORPUSCULAR HEMOGLOBIN 21 pg (27-31); MEAN CORPUSCULAR HGB CONC 30 % (32-36); MEAN CORPUSCULAR VOLUME 68 fL (79.0-98.0); MONOCYTES % (AUTO) 9.7 % (1.7-9.3); NEUTROPHILS # (AUTO) 6.5 K/uL (1.8-7.7); NEUTROPHILS % (AUTO) 66.7 % (40.0-70.0); PLATELET COUNT (AUTO) 379 K/uL (130-430); RED BLOOD CELL COUNT(AUTO) 4.23 MIL/uL (4.2-6.2); RED CELL DISTRIBUTION WIDTH 19.1 % (9.0-15.0); WHITE BLOOD COUNT (AUTO) 9.8 K/uL (4.8-10.8)
[2023-12-27 07:24] LABS: INR 1.7 (0.8-1.2); PROTHROMBIN TIME 18.3 SECS (9.5-12.5)
[2023-12-27 07:38] LABS: CALCIUM 8.6 mg/dL (8.4-11.0); CREATININE 0.93 mg/dL (0.55-1.30); POTASSIUM 3.6 mmol/L (3.5-5.1)
[2023-12-27 08:00] VITALS: BP_SYST 112; PULSE 95; RESP 16; TEMP 96.9; O2SAT 100
[2023-12-27 10:00] VITALS: O2SAT 100
[2023-12-27 12:50] VITALS: BP_SYST 86; PULSE 96; RESP 18; TEMP 97.7; O2SAT 100
[2023-12-27 15:47] VITALS: BP_SYST 108; PULSE 92; RESP 16; TEMP 97.4; O2SAT 98
[2023-12-27 16:49] VITALS: BP_SYST 92; PULSE 104; RESP 18; TEMP 98; O2SAT 100
== END 2023-12-27 16:45 | disposition home or self-care (01) | DRG 918 ==
LOC: SED 21:07 → STU 12-24 00:49
PROVIDERS: ADMIT Internal Medicine; ATTEND Internal Medicine
DX: T45.511A Poisoning by anticoagulants, accidental (unintentional), initial encounter (principal); N39.0 Urinary tract infection, site not specified; N93.9 Abnormal uterine and vaginal bleeding, unspecified; M32.9 Systemic lupus erythematosus, unspecified; D50.0 Iron deficiency anemia secondary to blood loss (chronic); K59.09 Other constipation; M79.7 Fibromyalgia; G89.29 Other chronic pain; Y92.89 Other specified places as the place of occurrence of the external cause; Z98.84 Bariatric surgery status; Z95.2 Presence of prosthetic heart valve; Z90.49 Acquired absence of other specified parts of digestive tract; Z88.0 Allergy status to penicillin; Z86.718 Personal history of other venous thrombosis and embolism; Z79.01 Long term (current) use of anticoagulants; Z30.430 Encounter for insertion of intrauterine contraceptive device; Z79.899 Other long term (current) drug therapy; Z88.8 Allergy status to other drugs, medicaments and biological substances
CPT/HCPCS: 36415; 76856; 80048; 80053; 80076; 81000; 81001; 81015; 83540; 83550; 83690; 84703; 85025; 85044; 85610; 85730; 87086; 87186; 93005; 99285; G0378; J2916; J3430; J7500; J7512